=== PATIENT | male | born 1935 | race Caucasian/White ===

== ENCOUNTER 2016-12-25 08:25 | Inpatient (IN) | payer MEDICARE ==
[~2016-12-25] VITALS: Ht 160 cm; Wt 52.5 kg
[~2016-12-25 08:25] MED LIST: ALB2.5NEB INH; ALBU17IN INH; ASPI325T PO; ATEN25TA PO; ATOR1TAB21 PO; IPRA2IN INH; LEVA750T PO; LISI10TA4 PO; PRED10TA PO; TYLE325T5 PO; VITMTA PO; [UNRECOGNIZED DRUG - CODE] PO
[2016-12-25] MEDS ORDERED: ALBUTEROL SULFATE 2.5 MG/0.5 ML INH NEB SOLN NEB PRN (08:45)
[2016-12-25 08:59] LABS: VENOUS O2 SATURATION 58.4 % (60.0-80.0); VENOUS PARTIAL PRESSURE CO2 53.6 mmHg (38.0-50.0); VENOUS PARTIAL PRESSURE O2 28.1 mmHg (30.0-50.0); VENOUS STANDARD HCO3 27.8 MEQ/L; VENOUS TOTAL CO2 33.3 MEQ/L (24.0-28.0)
[2016-12-25] MEDS ORDERED: SODIUM CHLORIDE 0.9% 1000 ML IV ONE (09:00)
[2016-12-25] MEDS ORDERED: ONDANSETRON 4MG/2ML VIAL (J2405) IV ONE (09:00)
[2016-12-25 09:03] LABS: BASO % 0.2 % (0.0-1.0); EOS # 0.5 K/mm3 (0.0-0.50); EOS % 2.2 % (0.0-3.0); LARGE UNSTAINED CELL # 0.2 K/mm3 (0.0-0.4); LARGE UNSTAINED CELL % 0.7 % (0.0-4.0); LYMPH # 0.8 K/mm3 (1.5-4.5); LYMPH % 3.2 % (24.0-44.0); MEAN CORPUSCULAR HEMOGLOBIN 30.3 pg (27.0-33.0); MEAN CORPUSCULAR HGB CONC 33.2 g/dl (32.0-36.5); MEAN CORPUSCULAR VOLUME 91.1 fl (80.0-96.0); MONO % 4.5 % (0.0-5.0); NEUTROPHILS # 19.5 K/mm3 (1.8-7.7); NEUTROPHILS % 89.2 % (36.0-66.0); PLATELET COUNT, AUTOMATED 206 k/mm3 (150-450); RED CELL DISTRIBUTION WIDTH 13.6 % (11.5-14.5); WHITE BLOOD COUNT 21.8 K/mm3 (4.0-10.0)
[2016-12-25 09:27] LABS: ALBUMIN 3.5 GM/DL (3.2-5.2); ALBUMIN/GLOBULIN RATIO 1.25 (1.00-1.93); ALKALINE PHOSPHATASE 101 U/L (45-117); ALT/SGPT 19 U/L (12-78); ANION GAP 6 MEQ/L (8-16); AST/SGOT 20 U/L (15-37); BILIRUBIN,DIRECT 0.4 MG/DL (0.0-0.2); BILIRUBIN,TOTAL 1.1 MG/DL (0.2-1.0); BLOOD UREA NITROGEN 20 MG/DL (7-18); CALCIUM LEVEL 8.7 MG/DL (8.8-10.2); CARBON DIOXIDE LEVEL 32 MEQ/L (21-32); CHLORIDE LEVEL 102 MEQ/L (98-107); GLOMERULAR FILTRATION RATE > 60.0 (>35); GLUCOSE, FASTING 163 MG/DL (83-110); POTASSIUM SERUM 4.8 MEQ/L (3.5-5.1); SODIUM LEVEL 140 MEQ/L (136-145); TOTAL PROTEIN 6.3 GM/DL (6.4-8.2)
--- NOTE | 2016-12-25 09:46 | REP ---
ABDOMINAL SERIES: Supine and erect views of the abdomen demonstrate no free air or evidence of bowel obstruction. No dilated small bowel loops are seen. There are vascular calcifications and phleboliths in the pelvis. There are mild degenerative changes of the spine . An accompanying view of the chest demonstrates stable bilateral fibrotic changes. No superimposed acute infiltrate is seen. The heart is upper limits of normal in size. There is calcification and ectasia of the thoracic aorta. IMPRESSION: No acute findings. Signed by Mario Pierre MD 12/25/2016 04:50 P
--- NOTE | 2016-12-25 09:48 | REP ---
SOFT TISSUES NECK: AP and lateral views of the soft tissues of the neck are performed with three total views obtained. Focal nodular thickening is seen of the posterior subglottic soft tissues. Recommend CT of the neck with IV contrast to further evaluate. The airway is focally narrowed at that level. Epiglottis is normal. [place] tonsils are not enlarged, and the adenoids are normal in size. There are degenerative changes of the cervical spine. IMPRESSION: Focal nodular thickening subglottic soft tissues posteriorly with mild narrowing of the airway at that level. Recommend CT of the soft tissues of the neck with IV contrast to further evaluate. Signed by Mario Pierre MD 12/25/2016 04:50 P
[2016-12-25] MEDS ORDERED: ISOVUE-370 76% 100ML VIAL (Q9967) As Ordered ONE (10:33)
--- NOTE | 2016-12-25 12:04 | REP ---
CT NECK WITH CONTRAST: HISTORY: Abnormal neck. There is minimal thickening of the lateral and posterior ma of the inferior hypopharynx. There is minimal mass effect on the airway. There is no extension into the larynx. The naso- and oropharynx and subglottic trachea are normal in appearance. The salivary and thyroid glands are normal. Small lymph nodes less than 1 cm in size are present in the internal jugular chains, posterior triangles and submandibular areas. Atherosclerotic calcification is present at the carotid bifurcations. Degenerative change is present in the cervical spine. Bullae are present in the lung apices. Scarring is present in the right lung apex. The visualized sinuses are clear. IMPRESSION: There is minimal thickening of the posterior and lateral ma of the inferior hypopharynx suspicious for neoplasm. There is minimal mass effect on the airway. Signed by Nimesh Trevino MD 12/25/2016 12:07 P
[2016-12-25] MEDS ORDERED: PIPERACILLIN/TAZOBACTAM SOD 3.375 GM in D5W MINI-BAG PLUS 50 ML IV ONE (12:15)
--- NOTE | 2016-12-25 12:42 | REP ---
CT CHEST WITH IV CONTRAST: TECHNIQUE: Axial contrast-enhanced images from the thoracic inlet to the upper abdomen using 100 mL Isovue-370 intravenous contrast material with multiplanar reformations. COMPARISON: 08/13/2015 Diffuse emphysematous and interstitial fibrotic changes are seen. Suspicious oval spiculated right upper lobe mass is seen measuring 2.8 x 2.3 cm. There is adjacent pleural thickening. Inspissated secretions are seen in mildly dilated right lower lobe bronchioles. Subcentimeter nodular opacity in the left lower lobe is unchanged. There is no pleural or pericardial effusion. Multiple subcentimeter lymph nodes are seen in the mediastinal and hilar regions. 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 There is no dissection or rupture. Fluid is seen within the esophagus diffusely. There is diffuse thickening of the esophageal wall below the level of the vicente. The very proximal end of the esophagus also appears to demonstrate diffuse wall thickening. There are degenerative changes of the spine. A few mild compression deformities of midthoracic vertebral bodies appear stable. IMPRESSION: Suspicious right upper lobe mass 2.8 x 2.3 cm. Multiple subcentimeter lymph nodes in the mediastinal and hilar regions. Inspissated secretions in mildly dilated right lower lobe bronchioles. No change in aneurysmal dilatation of the thoracic aorta. Diffuse thickening of the distal portion of the esophageal wall below the level of the vicente. Esophagus is filled with fluid. The very proximal end of the esophagus may also be thickened. Findings may represent esophagitis, but underlying neoplasm cannot be excluded. Signed by Mario Pierre MD 12/25/2016 04:52 P
[2016-12-25] MEDS ORDERED: KCL 10MEQ IN D5/0.45NS 1000ML 1,000 ML IV SCH (13:30)
[2016-12-25] MEDS ORDERED: ONDANSETRON 4MG/2ML VIAL (J2405) IV PRN (13:30)
--- NOTE | 2016-12-25 13:42 | REP ---
CT ABDOMEN AND PELVIS WITH CONTRAST: TECHNIQUE: Axial contrast enhanced images from the lung bases to the pubic symphysis using 100 mL Isovue-370 intravenous contrast material with multiplanar reformations. The liver demonstrates a tiny cyst in the left lobe. Tiny calcified granulomas are seen in the spleen. Gallbladder is moderately distended, but I do not see evidence of gallbladder wall thickening or surrounding inflammatory change. Left adrenal adenoma is stable since CT of the chest 03/14/2014 measuring 2 cm in maximum diameter. Right adrenal is unremarkable. Pancreas appears unremarkable. Small subcentimeter cyst is seen in the lower pole of both kidneys. There is no hydronephrosis bilaterally. There is diffuse ectasia with moderate atherosclerotic calcifications of the abdominal aorta. There is no adenopathy. There is no free air or free fluid. No bowel wall thickening is seen. There is extensive sigmoid diverticulosis with diverticula also seen of the left colon. No acute diverticulitis is seen. No pelvic mass is seen. Urinary bladder is mildly distended and grossly unremarkable. There appears to be a right femoral hernia containing fat. There are mild degenerative changes of the spine. IMPRESSION: No acute abnormalities, as discussed above. No free air or free fluid. Small right femoral hernia containing fat. Sigmoid diverticulosis without acute diverticulitis. Signed by Mario Pierre MD 12/25/2016 04:52 P
[2016-12-25] MEDS ORDERED: LISI-542 PO (14:06)
[2016-12-25] MEDS ORDERED: INCR1INH INH (14:07)
[2016-12-25 14:56] LABS: AMYLASE 100 U/L (25-115)
--- NOTE | 2016-12-25 15:07 | HPEPDOC ---
Medical History and Physical Date of Admission Dec 25, 2016 at 13:19 History and Physical ATTENDING: Dr. Platt PCP: Mildred HOLCOMB CC: vomiting HPI: 81yoM with a past medical history significant for COPD, HHD who states he was treated for COPD exacerbation about 10 days ago. Finished antibiotics and steroid course about 5 days ago. States symptoms did improve on therapy but last night had persistent vomiting brown emesis, SOB with brown sputum, and onset of hoarseness. Called EMS today. Denies any fevers, chills, RAYA, CP, palpitations, abdominal pain, or changes in bowel or bladder habits. Upon presentation to the hospital the patient was found to have esophageal mass on imaging/RUL mass, thus the hospitalist team was consulted. PMHx: HHD- CANNY thoracic AA 08/05 4 cm h/o tobacco use h/o Pn HTN Pulmonary cachexia Emphysematous COPD-PANNY PSHX: Rt knee surgery SOCHX: Resides in: [facility] Marital Status: Kids: 6 Employment: retired Tobacco use: 64yr smoking hx, quit per pt 2 yr ago ETOH: denies Illicit Drugs: Denies Recent travel: denies Advanced directives: DNR- copy scanned in chart FAMHX: Mother: old age Father: old age Children: Alive, well Unexpected deaths due to medical reasons: None. ROS: As noted in HPI, otherwise 11pt ROS of systems reviewed and unremarkable. PE: GEN: 81yoM, appears stated age. thin cachectic appearing. Alert and oriented x 3. Pt with hoarseness noted. HEENT: Normocephalic, atraumatic. Pupils are equal, round, and reactive to light. Extraocular movements are intact. No nystagmus appreciated. Sclera are nonicteric. Conjunctiva without injection. Nose midline. Nasal turbinates without bogginess. EACs both patent BL. TMs both visualized and bales with good cone of light, no bulging or erythema. No facial asymmetry. Moist mucous membranes. Neck supple, trachea midline- no deviation noted. No lymphadenopathy or thyromegaly appreciated. CHEST: Regular rate and rhythm, +S1, +S2 LUNGS: Decreased BS Rt lung field with rales noted. Few scattered wheezes. No rhonchi. No stridor noted. ABD: Flat, soft, non-tender, non-distended. +Bowel sounds throughout. No rebound or guarding. No costovertebral angle tenderness. EXT: Pulses 2+ bilaterally dorsalis pedis and radial. No lower extremity edema appreciated. SKIN: [place], dry, warm. Capillary refill <2sec. No rashes. NEURO: Alert and oriented x 3. Cranial nerves III-XII are intact. No focal deficits appreciated. AXR No acute findings. XR neck Focal nodular thickening subglottic soft tissues posteriorly with mild narrowing of the airway at that level. Recommend CT of the soft tissues of the neck with IV contrast to further evaluate. CT neck There is minimal thickening of the posterior and lateral ma of the inferior hypopharynx suspicious for neoplasm. There is minimal mass effect on the airway CT: Abd/Pelvis No acute abnormalities, as discussed above. No free air or free fluid. Small right femoral hernia containing fat. Sigmoid diverticulosis without acute diverticulitis. CT chest Suspicious right upper lobe mass 2.8 x 2.3 cm. Multiple subcentimeter lymph nodes in the mediastinal and hilar regions. Inspissated secretions in mildly dilated right lower lobe bronchioles. No change in aneurysmal dilatation of the thoracic aorta. EKG: SR, 84bpm, poss LAE, Inc RBBB, LAFB. BLOOD CULTURES: x 2 pending. A&P: 81yoM with a past medical history significant for COPD, HHD who states he was treated for COPD exacerbation about 10 days ago. Finished antibiotics and steroid course about 5 days ago. States symptoms did improve on therapy but last night had persistent vomiting brown emesis, SOB with brown sputum, and onset of hoarseness. Called EMS today The patient will be admitted to PCU for at least [address] Platt' s service. 1. RUL Lung mass. PCU. NPO. Plan to clt with Dr Cox as pt follows with her as outpt with GLORIA. 2. Esophageal mass. Thickening of ma of hypopharynx suspicious for neoplasm with minimal mass effect on airway. No stridor, tracheal deviation, or respiratory distress on exam. NPO. ENT has been consulted to evaluate airway further and any further recommendations. IV Protonix. 3. COPD/Recent COPD exacerbation. PCU/TM. O2/Nebs. Sputum culture/BCx2. Pt noted with WBC 21, LA 2.3. LA will be repeated at 6 PM. Respiratory panel pending. Pt stopped abx yesterday and steroids 5 days ago. IV Zosyn initiated. IVF at 75cc/hr. 4. HTN. Atenolol/Lisinopril. 5. H/O Tobacco use. Pt states he quit 2 years ago. 6. HLD. Statin. 7. Vomiting. IV Zofran prn. DVT prophylaxis. The patient is a DNR, there is a copy scanned into system and Pt affirms. Vital Signs Vital Signs Date Time Temp Pulse Resp B/P Pulse Ox O2 Delivery O2 Flow Rate FiO2 12/25/16 12:46 82 96 12/25/16 12:42 121/93 12/25/16 10:13 Nasal Cannula 3 12/25/16 08:27 99.3 20 Laboratory Data Labs 24H Laboratory Tests 2 12/25/16 08:49: Aspartate Amino Transf (AST/SGOT) 20, Alanine Aminotransferase (ALT/SGPT) 19, Alkaline Phosphatase 101, Total Bilirubin 1.1H, Direct Bilirubin 0.4H, Albumin 3.5, Albumin/Globulin Ratio 1.25, Anion Gap 6L, B-Type Natriuretic Peptide 28.2 , White Blood Count 21.8H, Red Blood Count 4.86, Hemoglobin 14.7, Hematocrit 44.3, Mean Corpuscular Volume 91.1, Mean Corpuscular Hemoglobin 30.3, Mean Corpuscular Hemoglobin Concent 33.2, Red Cell Distribution Width 13.6, Platelet Count 206, Neutrophils (%) (Auto) 89.2H, Lymphocytes (%) (Auto) 3.2L, Monocytes (%) (Auto) 4.5, Eosinophils (%) (Auto) 2.2, Basophils (%) (Auto) 0.2, Neutrophils # (Auto) 19.5H, Lymphocytes # (Auto) 0.8L, Monocytes # (Auto) 1.0H, Eosinophils # (Auto) 0.5, Basophils # (Auto) 0.0, Blood Gas Bicarbonate Standard 27.8, Calcium Level 8.7L, Creatine Kinase MB 1.8, Creatine Kinase MB Relative Index 2.60, Glomerular Filtration Rate > 60.0, Lactic Acid Level 2.3*H , Large Unclassified Cells # 0.2, Large Unclassified Cells % 0.7, Thyroid Stimulating Hormone (TSH) 0.897, Total Creatine Kinase 69, Total Protein 6.3L, Troponin I < 0.02, Venous Blood Base Excess 5.0H, Venous Blood pH 7.389, Venous Blood Partial Pressure CO2 53.6H, Venous Blood Partial Pressure O2 28.1L, Venous Blood Total Carbon Dioxide 33.3H, Venous Blood HCO3 31.6H, Venous Blood Oxygen Saturation 58.4L CBC/BMP Laboratory Tests 12/25/16 08:49 Red Blood Count 4.86, Mean Corpuscular Volume 91.1, Mean Corpuscular Hemoglobin 30.3, Mean Corpuscular Hemoglobin Concent 33.2, Red Cell Distribution Width 13.6 , Neutrophils (%) (Auto) 89.2 H, Lymphocytes (%) (Auto) 3.2 L, Monocytes (%) ( Auto) 4.5, Eosinophils (%) (Auto) 2.2, Basophils (%) (Auto) 0.2, Neutrophils # ( Auto) 19.5 H, Lymphocytes # (Auto) 0.8 L, Monocytes # (Auto) 1.0 H, Eosinophils # (Auto) 0.5, Basophils # (Auto) 0.0 Microbiology Microbiology 12/25/16 Blood Culture, Received Pending 12/25/16 Blood Culture, Received Pending Home Medications Scheduled (Incruse Ellipta) 62.5 Mcg/Inh Inh 1 PUFF INH DAILY Aspirin (Aspirin) 325 Mg Tab 650 MG PO DAILY Atenolol (Atenolol) 25 Mg Tab 25 MG PO QPM Atorvastatin Calcium (Atorvastatin Calcium) 20 Mg Tab 20 MG PO QHS Lisinopril (Lisinopril) 5 Mg Tab 5 MG PO QHS Multivitamins *[facility] STOCKED* (Thera M Plus *[facility] STOCKED*) 1 Tab Tab 1 TAB PO DAILY Scheduled PRN Acetaminophen (Tylenol) 325 Mg Tab 650 MG PO Q4HP PRN PRN MILD PAIN OR FEVER Albuterol Sulfate (Albuterol Sulfate) 2.5 Mg/0.5 Ml Neb 2.5 MG INH QID PRN PRN SHORTNESS OF BREATH MIX WITH IPRATROPIUM BROMIDE Albuterol Sulfate (Ventolin Hfa) 200 Puff/8 Gm Aers 2 PUFF INH Q4H PRN PRN SHORTNESS OF BREATH Ipratropium [place] (Ipratropium [place]) 0.5 Mg/2.5 Ml Soln 0.5 MG INH QID PRN PRN SHORTNESS OF BREATH MIX WITH ALBUTEROL Allergies Coded Allergies: No Known Allergies (Unverified , 07/21/15) Vianey William Dec 25, 2016 15:07
[2016-12-25] MEDS ORDERED: LEVALBUTEROL 1.25 MG/0.5 ML CONCENTRATE NEB INH PRN (15:15)
[2016-12-25] MEDS ORDERED: IPRATROPIUM 0.02% SOLN 0.5MG/2.5 ML NEB INH PRN (15:15)
[2016-12-25] MEDS: IPRATROPIUM 0.02% SOLN 0.5MG/2.5 ML NEB INH SCH ×3 (16:00→23:49)
[2016-12-25] MEDS: LEVALBUTEROL 1.25 MG/0.5 ML CONCENTRATE NEB INH SCH ×3 (16:00→23:49)
[2016-12-25 17:15] VITALS: BP 122/56
[2016-12-25] MEDS: D5W/0.45% SODIUM CHLORIDE 1,000 ML IV SCH (17:30)
[2016-12-25] MEDS ORDERED: ACETAMINOPHEN 650 MG SUPP PR ONE (18:00)
[2016-12-25] MEDS: MULTIVITAMINS/MINERALS THERAP 1 TAB PO SCH (18:00)
[2016-12-25] MEDS: PIPERACILLIN/TAZOBACTAM SOD 3.375 GM in D5W MINI-BAG PLUS 50 ML IV SCH (18:05)
--- NOTE | 2016-12-25 18:57 | ECGEPIP ---
Stationary ECG Study [facility] - ED Test Date: 2016-12-25 Pat Name: ALFA TALBERT Department: Room: - Gender: M [place] Laborer: [id number] : 1935 Requested By: Laura Rob Order Number: [id number] Reading MD: Oscar Avilez Measurements Intervals [place] Rate: 84 P: 73 [place]: 159 QRS: -88 QRSD: 113 T: 52 QT: 380 QTc: 449 Interpretive Statements SINUS RHYTHM POSSIBLE LEFT ATRIAL ENLARGEMENT INCOMPLETE RIGHT BUNDLE BRANCH BLOCK LEFT ANTERIOR FASCICULAR BLOCK SIMILAR TO PRIORS Electronically Signed On 12-25-2016 18:56:55 EDT by Oscar Avilez
[2016-12-25 19:49] VITALS: O2SAT 95
[2016-12-25 20:00] VITALS: BP 113/54
[2016-12-25] MEDS: PANTOPRAZOLE 40MG INJ (PROTONIX) (C9113) IV SCH (20:12)
[2016-12-25] MEDS ORDERED: ATENOLOL 25 MG TAB PO SCH (21:00)
[2016-12-25] MEDS ORDERED: LISINOPRIL 5 MG TAB PO SCH (21:00)
[2016-12-25] MEDS ORDERED: ATORVASTATIN 20 MG TAB PO SCH (21:00)
[2016-12-26] VITALS: BP 120/59
[2016-12-26] MEDS: PIPERACILLIN/TAZOBACTAM SOD 3.375 GM in D5W MINI-BAG PLUS 50 ML IV SCH ×5 (00:15→23:32)
[2016-12-26 03:27] VITALS: O2SAT 96
[2016-12-26] MEDS: LEVALBUTEROL 1.25 MG/0.5 ML CONCENTRATE NEB INH SCH ×6 (03:27→23:34)
[2016-12-26] MEDS: IPRATROPIUM 0.02% SOLN 0.5MG/2.5 ML NEB INH SCH ×6 (03:27→23:34)
[2016-12-26 04:00] VITALS: BP 133/60
[2016-12-26 04:51] LABS: BASO % 0.2 % (0.0-1.0); EOS # 2.3 K/mm3 (0.0-0.50); EOS % 10.8 % (0.0-3.0); LARGE UNSTAINED CELL # 0.4 K/mm3 (0.0-0.4); LYMPH # 1.9 K/mm3 (1.5-4.5); LYMPH % 9.1 % (24.0-44.0); MEAN CORPUSCULAR HEMOGLOBIN 29.5 pg (27.0-33.0); MEAN CORPUSCULAR HGB CONC 32.1 g/dl (32.0-36.5); MEAN CORPUSCULAR VOLUME 91.7 fl (80.0-96.0); MONO # 1.4 K/mm3 (0.0-0.8); MONO % 6.8 % (0.0-5.0); NEUTROPHILS # 14.9 K/mm3 (1.8-7.7); NEUTROPHILS % 71.1 % (36.0-66.0); PLATELET COUNT, AUTOMATED 185 k/mm3 (150-450); RED CELL DISTRIBUTION WIDTH 13.8 % (11.5-14.5); WHITE BLOOD COUNT 20.9 K/mm3 (4.0-10.0)
[2016-12-26 04:56] LABS: INR 1.27
[2016-12-26 05:09] LABS: ALBUMIN 2.5 GM/DL (3.2-5.2); ALBUMIN/GLOBULIN RATIO 0.89 (1.00-1.93); ALKALINE PHOSPHATASE 77 U/L (45-117); ALT/SGPT 14 U/L (12-78); ANION GAP 3 MEQ/L (8-16); AST/SGOT 15 U/L (15-37); BILIRUBIN,DIRECT 0.3 MG/DL (0.0-0.2); BILIRUBIN,TOTAL 0.9 MG/DL (0.2-1.0); BLOOD UREA NITROGEN 22 MG/DL (7-18); CALCIUM LEVEL 7.4 MG/DL (8.8-10.2); CARBON DIOXIDE LEVEL 31 MEQ/L (21-32); CHLORIDE LEVEL 108 MEQ/L (98-107); CREATININE FOR GFR 0.85 MG/DL (0.70-1.30); GLOMERULAR FILTRATION RATE > 60.0 (>35); GLUCOSE, FASTING 131 MG/DL (83-110); POTASSIUM SERUM 3.5 MEQ/L (3.5-5.1); SODIUM LEVEL 142 MEQ/L (136-145); TOTAL PROTEIN 5.3 GM/DL (6.4-8.2)
[2016-12-26] MEDS: D5W/0.45% SODIUM CHLORIDE 1,000 ML IV SCH ×2 (07:44→20:47)
[2016-12-26 08:00] VITALS: BP 128/62
[2016-12-26] MEDS: MULTIVITAMINS/MINERALS THERAP 1 TAB PO SCH (08:30)
[2016-12-26] MEDS: PANTOPRAZOLE 40MG INJ (PROTONIX) (C9113) IV SCH ×2 (08:34→20:46)
--- NOTE | 2016-12-26 09:55 | IPNPDOC ---
Subjective Date Seen The patient was seen on 12/26/16. Subjective Chief Complaint/HPI The patient is a 81-year-old male admitted with a reason for visit of Esophageal Mass. Events since last encounter Pts family at bedside. Pt this morning states that his N/V is better than is was. He has not vomited since he came into the hospital. His breathing is labored, slightly worse than baseline. Hoarse voice, cough, N/V, increased SOB started just over 2 days ago suddenly. General: Denies: Fatigue Constitutional: Denies: Chills, Fever ENT: Reports: Dysphagia, Other Symptoms (hoarse voice), Sore Throat Pulmonary: Reports: Cough, Dyspnea Cardiovascular: Denies: Chest Pain, Palpitations Gastrointestinal: Denies: Diarrhea, Nausea, Vomiting Genitourinary: Denies: Dysuria Neurological: Reports: Weakness Psych: Reports: Mood Normal Objective Physical Examination General Exam: Positive: Alert, No Acute Distress ENT Exam: Positive: Mucous membr. moist/pink Neck Exam: Positive: Supple Chest Exam: Positive: Clear to auscultation, Normal air movement Heart Exam: Positive: Normal S1, Normal S2, Rate Normal Abdomen Exam: Positive: Normal bowel sounds, Soft, Negative: Tenderness Extremity Exam: Positive: Edema Psych Exam: Positive: Mental status NL, Mood NL Assessment /Plan Problems (1) Esophageal mass Status: Acute Discussed With: Nurse, Patient, Family with Pt Consent Problem Specific Plan: Consult Specialist, Monitor Clinically, Repeat Labs Problem Text: thickening of the ma of the hypopharynx, minimal effect on the airway, ENT consult placed. JFW: ENT consult pending (2) Mass of lung Status: Acute Discussed With: Nurse, Patient, Family with Pt Consent Problem Specific Plan: Consult Specialist, Monitor Clinically Problem Text: Will consult Dr Cox to see the pt, he follows with her as an outpt. JFW: per Dr Cox, plan CT guided bx (3) Vomiting Status: Acute Response to Treatment: Improving Problem Specific Plan: Consult Specialist, Monitor Clinically Problem Text: I suspect this is assoc with the thickening noted on CT of the hypopharynx. He is NPO right now, which has helped alleviate this. JFW: swallowing study today, ADAT (4) Hypertension Status: Chronic Response to Treatment: Stable Problem Text: Will hold lisinopril 5 mg for now. His pressures are stable at this point. 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 O2 3L. (6) Leukocytosis Status: Acute Problem Specific Plan: Monitor Clinically Problem Text: Etiology of this unclear. Resp panel neg, Blood culture x 1 Neg, x 1 pending, did recently finished course of prednisone. Currently on Zosyn IV. Tmax 100.8 JFW: suspect reactive from malignancy Plan/VTE VTE Prophylaxis Ordered?: No (SCD, TEDS, hold off on anticoagulation in anticipation of bx. ) Plan/Urinary Catheter Reason for insertion/continuin: Acute obstruct/retention VS, I&O, 24H, Fishbone Vital Signs/I&O Vital Signs Date Time Temp Pulse Resp B/P Pulse Ox O2 Delivery O2 Flow Rate FiO2 12/26/16 07:52 77 12/26/16 04:00 99.0 24 133/60 98 Nasal Cannula 3.0 12/25/16 19:49 95 I&O- Last 24 Hours up to 6 AM 12/26/16 06:00 Intake Total 2150 ml Output Total 820 ml Balance 1330 ml Laboratory Data 24H LABS Laboratory Tests 2 12/25/16 18:24: Lactic Acid Level 1.6 12/26/16 04:34: Activated Partial Thromboplast Time 31.6, Aspartate Amino Transf (AST/SGOT) 15, Alanine Aminotransferase (ALT/SGPT) 14, Alkaline Phosphatase 77, Total Bilirubin 0.9, Direct Bilirubin 0.3H, Albumin 2.5#L, Albumin/Globulin Ratio 0.89L, Anion Gap 3L, White Blood Count 20.9H, Red Blood Count 4.49, Hemoglobin 13.2L, Hematocrit 41.2L, Mean Corpuscular Volume 91.7, Mean Corpuscular Hemoglobin 29.5, Mean Corpuscular Hemoglobin Concent 32.1, Red Cell Distribution Width 13.8, Platelet Count 185, Neutrophils (%) (Auto) 71.1H, Lymphocytes (%) (Auto) 9.1L, Monocytes (%) (Auto) 6.8H, Eosinophils (%) (Auto) 10.8H, Basophils (%) (Auto) 0.2, Neutrophils # (Auto) 14.9H, Lymphocytes # (Auto ) 1.9, Monocytes # (Auto) 1.4H, Eosinophils # (Auto) 2.3H, Basophils # (Auto) 0.0, Calcium Level 7.4L, Glomerular Filtration Rate > 60.0, Large Unclassified Cells # 0.4, Large Unclassified Cells % 2.0, Prothromb Time International Ratio 1.27, Prothrombin Time 16.0H, Total Protein 5.3L CBC/BMP Laboratory Tests 12/26/16 04:34 Red Blood Count 4.49, Mean Corpuscular Volume 91.7, Mean Corpuscular Hemoglobin 29.5, Mean Corpuscular Hemoglobin Concent 32.1, Red Cell Distribution Width 13.8 , Neutrophils (%) (Auto) 71.1 H, Lymphocytes (%) (Auto) 9.1 L, Monocytes (%) ( Auto) 6.8 H, Eosinophils (%) (Auto) 10.8 H, Basophils (%) (Auto) 0.2, Neutrophils # (Auto) 14.9 H, Lymphocytes # (Auto) 1.9, Monocytes # (Auto) 1.4 H , Eosinophils # (Auto) 2.3 H, Basophils # (Auto) 0.0 Microbiology Microbiology 12/25/16 Blood Culture, Received Pending 12/25/16 Blood Culture - Preliminary, Resulted No growth after 24 hours . All specim... 12/25/16 MRSA Screen, Resulted Pending 12/25/16 Respiratory Virus Panel (PCR) ([facility]) - Final, Resulted 12/25/16 Gram Stain - Final, Resulted 12/25/16 Sputum Culture, Resulted Pending ERICKSON DORAN PA-C Dec 26, 2016 09:55 Fran Platt MD Dec 26, 2016 14:05
[2016-12-26 14:00] VITALS: BP 120/57
--- NOTE | 2016-12-26 14:41 | IPN ---
DATE OF SERVICE: 12/26/2016 Reason for visit in the hospital was abnormal chest CT. HISTORY OF PRESENT ILLNESS: Mr. Marino last saw me back in February 2016. He is an 81-year-old male with known emphysema, pulmonary cachexia, prior history of abnormal chest CT. It is not clear why he was lost to followup. He had a chest lesion in July of 2015 on the left upper lobe. It appears to have become slightly larger and therefore I was consulted. I reviewed the imaging with Dr. Hong Guzman, we both agree it is a difficult area to biopsy, however, we had agreed on attempting a CT-guided biopsy despite the high risk of pneumothorax. The reason for the patient's inpatient hospital stay currently is he had episode of vomiting. He was vomiting so hard he had loss of voice, difficulty swallowing. He was seen by ENT who performed an upper laryngoscopy, which showed no mass. There was postcricoid and arytenoid edema noted. It was postulated, and it may have been from excessive vomiting and retching. It was felt that a repeat exam would be helpful at some point in time. There is also recommendation of a barium swallow to help rule out an intraluminal esophageal mass. There is esophageal thickening on the CT scan. The patient had one night of vomiting on the night of the 12/24 and then went to the emergency room the morning of 12/25 and was admitted yesterday on 12/25. Since then, he feels better. His voice is still hoarse. Overall he feels better, his breathing is better. He denies any significant weight loss over the past year; however, his son states he has had progressive weight loss over the years. He does have a history of pulmonary cachexia, prior history of spontaneous pneumothorax requiring a right-sided chest tube. PAST MEDICAL HISTORY: Thoracic aortic aneurysm. Hypertension. Emphysema. Tobacco dependency. Pulmonary cachexia. History of abnormal chest CT. History of spontaneous pneumothorax on the right requiring chest tube placement. ALLERGIES: 1. SPIRIVA he had memory loss with. 2. He also claims he is allergic to SYMBICORT, not sure the exact adverse reaction. HOME MEDICATIONS: He states he is taking INCRUSE inhaled once daily at home. There was no home medication list documented on his history and physical. I believe he is taking lisinopril 10 mg p.o. b.i.d., a multivitamin one tablet by mouth daily, atorvastatin 20 mg p.o. q.h.s., atenolol 25 mg p.o. q.p.m., aspirin 325 mg p.o. daily, and albuterol both in the form Ventolin and in the form of DuoNeb p.r.n. q.4 h. MEDICATIONS WHILE IN HOSPITAL: Includes: - Protonix 40 mg IV b.i.d. - Zosyn 3.375 IV every 6 hours - Zofran 4 mg IV every 6 hours - Tylenol suppository - Xopenex nebs SMOKING STATUS: Ex-smoker, quit 2 years ago. Lives in [place], is . His son and his [id number] are in his room during my in interview. He is a DO NOT RESUSCITATE and has a copy in his chart. FAMILY HISTORY: Both parents of "old age." No other significant abnormalities. REVIEW OF SYSTEMS: CONSTITUTIONAL: No fever, chills. There has been progressive weight loss, as mentioned above. No weight gain. No night sweats. HEENT: Recent difficulty swallowing which is new in onset after the episodes of vomiting. No change in vision. No epistaxis. CARDIAC: Denies chest pain. No palpitations. No lower extremity edema. No symptoms of claudication. No orthopnea or PND. PULMONARY: No pleurisy. No increase in his usual level of cough. No increase in shortness of breath today. No history of TB or tuberculosis exposures. GASTROINTESTINAL (GI): Nausea and vomiting have decreased. No further episodes of hematemesis. No abdominal pain. No blood in stool. No change in caliber of stool. No diarrhea, constipation. GENITOURINARY (): No burning or pain with urination. He denies increased frequency. ENDOCRINE: No hot or cold intolerance. No polyuria, polydipsia. NEURO: No unilateral weakness. No tremor. No history of seizure activity. No history of head trauma. PSYCH: No depression, mood swings or anxiety. ALLERGY/IMMUNOLOGY: No history of environmental allergies. No history of recurrent infection. SLEEP: No excessive daytime somnolence. No snoring or witnessed apneas. INTEGUMENTARY: No recent rashes, jaundice or bruising. PHYSICAL EXAMINATION: Temperature is 98.7. Pulses is 84. Respiratory rate is 17. Blood pressure is 182/62 with a mean arterial pressure of 84. Oxygen saturation is 94% on 3 liters. Awake, alert and oriented. Affect and mood are appropriate. Nutrition and hygiene are good. Oronasal mucosa are dry. Tongue is midline. He is edentulous. Neck no stridor tracheal deviation or mass. Jugular veins are nondistended. Carotid upstroke is brisk without bruit. Thyroid is normal in size and contour without nodularity, moves normally with deglutition. Lymph no change. Cardiac regular S1-S2 without audible murmur, rub or gallop. PMI is difficult to palpate. Pulmonary: Breath sounds are decreased bilaterally, expiratory phase prolonged. No rales, rhonchi or wheezes. No dullness to percussion. Chest elevates symmetric. No accessory muscle use. Abdomen is scaphoid, soft, nontender with normal active bowel sounds. No palpable mass or discernible hepatosplenomegaly. There are no bruits over the large vessel of the abdomen. Extremities no significant peripheral edema. Peripheral pulses are palpable at radial locations and symmetric. Nails without clubbing or cyanosis. Skin is pale, cool and dry. No rashes, jaundice or bruising. Musculoskeletal: Muscle tone is wasted. Gait and station were not tested due to his acute illness. No evidence unilateral weakness, asterixis or tremor. DIAGNOSTIC STUDIES: Laboratory evaluation shows a white count of 20.9, hemoglobin of 13.2, hematocrit of 41.2, platelet count of 185. Chemistries show sodium 142, potassium 3.5, chloride 108, bicarb of 31, BUN of 22, creatinine of 0.85, fasting glucose of 131, lactate of 1.6, albumin of 2.5. Venous blood gas shows a pH of 7.38, pCO2 of 53.6 on December 25, 2016. Chest CT was reviewed from 12/25/2016. There is a right femoral hernia seen on abdominal CT. Chest CT showed a right upper lobe mass which has progressed from 2015, has increased by a centimeter. He has known emphysema throughout all lung [place] with bleb formation, especially around the periphery. He has a large thoracic aortic aneurysm. He has evidence of bronchiectasis especially in the right lower lobe. He has airways filled with mucus versus aspiration. IMPRESSION: 1. Abnormal chest CT with right upper lobe mass, possibly abscess versus scarring, but significantly worrisome for malignancy. Recommend biopsy at this point in time. After discussing with radiology, it is in a difficult location for biopsy; however, a CT guided biopsy will be attempted first. He is at high risk for pneumothorax and this was discussed with the patient and he expresses understanding. He wishes to proceed with biopsy. He was given the options of doing nothing, CT-guided biopsy and bronchoscopy. He has opted for CT guided biopsy as his first step, given the risks and benefits of the procedure. 2. Weight loss. My be due to chronic infection, emphysema or underlying malignancy. Recommend continued protein supplementation. 3. Emphysema. Will continue on inhaled therapy with nebulized therapy. The patient had reactions to long acting anticholinergics. At this point in time, he has no evidence of bronchospasm. I do not believe he warrants any steroid therapy at this point in time. 4. History of tobacco dependency.
[2016-12-26] MEDS ORDERED: LIDOCAINE 1% MDV 20ML VIAL As Ordered ONE (15:40)
[2016-12-26] MEDS ORDERED: SALIVA SUBSTITUTE(MOUTHKOTE) BTL MT PRN (18:30)
--- NOTE | 2016-12-26 18:55 | REP ---
Chest x-ray: PA view in inspiration. History: Immediately status post CT guided needle biopsy right upper lobe lung mass. Findings: There is a tiny sliver of apical pneumothorax on the right just peripheral to the biopsied mass lesion in the right apex. The lung findings are otherwise unchanged. The aorta is calcific and tortuous. Heart is mildly enlarged. Impression: Tiny right apical pneumothorax post biopsy. Recommend followup chest x-ray in 2-3 hours. Signed by David Guzman MD 12/27/2016 07:51 A
--- NOTE | 2016-12-26 20:46 | REP ---
CT guided needle biopsy right upper lobe lung mass. History: Mass in the right upper lobe of the lung on CT study of the chest from December 25, 2016. Procedure: The patient and his son were interviewed and informed consent was obtained. The patient was placed in the right side down prone oblique position on the CT table. Initial CT imaging was performed confirming the presence of a mass and the skin is marked at the site chosen for skin entry for the needle biopsy. After patient safety time-out was articulated and agreed to, the posterior skin just to the right of midline was prepped and draped in the usual fashion. 1% lidocaine was utilized for local anesthetic, 6 ml [address] scanning imaging, a 10 cm 19/20 gauge coaxial cutting Temno needle biopsy was positioned just proximal to the right upper lobe mass. Total of six core specimens were retrieved and submitted in formalin for histologic analysis. Specimen of saline aspirate and needle aspirate was submitted for culture as requested. Postprocedure imaging shows no untoward abnormality. The patient tolerated the procedure well. Impression: CT guided needle biopsy procedure right upper lobe lung mass. Signed by David Guzman MD 12/27/2016 07:52 A
[2016-12-26 22:00] VITALS: BP 144/67
[2016-12-27] MEDS: LEVALBUTEROL 1.25 MG/0.5 ML CONCENTRATE NEB INH SCH ×6 (03:50→23:05)
[2016-12-27] MEDS: IPRATROPIUM 0.02% SOLN 0.5MG/2.5 ML NEB INH SCH ×6 (03:50→23:05)
[2016-12-27] MEDS: PIPERACILLIN/TAZOBACTAM SOD 3.375 GM in D5W MINI-BAG PLUS 50 ML IV SCH ×3 (05:29→17:50)
[2016-12-27 06:00] VITALS: BP 132/61
--- NOTE | 2016-12-27 06:39 | REP ---
CHEST, PA AND LATERAL: 12/26/2016. Clinical history: Status post transthoracic CT guided needle biopsy. Findings: The right upper lobe with small apical pneumothorax after that right side post biopsy 3 hours ago. Just lateral to the peripheral margin of the mass, the air gap was 11.5 cm. At that same level, the air gap is now 7.7 mm smaller. The right upper lobe mass is unchanged. The underlying COPD, fibrosis, lateral pleural thickening, tortuous calcified ectatic aorta all unchanged. Some basilar fibrotic changes are seen. Heart prominent for this degree of hyperinflation and COPD but without pulmonary edema. Impression: 1. 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 No tension component. No other change. Signed by Con Le MD 12/27/2016 08:15 P
[2016-12-27] MEDS: PANTOPRAZOLE 40MG INJ (PROTONIX) (C9113) IV SCH ×2 (08:18→21:08)
[2016-12-27] MEDS: D5W/0.45% SODIUM CHLORIDE 1,000 ML IV SCH (12:39)
[2016-12-27 14:00] VITALS: BP 142/65
--- NOTE | 2016-12-27 16:46 | IPNPDOC ---
Subjective Date Seen The patient was seen on 12/27/16. Subjective Chief Complaint/HPI The patient is a 81-year-old male admitted with a reason for visit of Esophageal Mass. Events since last encounter Patient is status post bronchoscopy with biopsy. He reports that he continues to have difficulty swallowing. He has not been eating anything since being evaluated by speech therapy, who expressed significant concern that he is aspirating. He is awaiting a cookie swallow study to be done on Thursday. He reports no difficulties with breathing, no chest pain, chest pressure, fevers, sweats, constipation, or diarrhea. Constitutional: Denies: Chills, Fever, Malaise, Night Sweats, Weakness Pulmonary: Reports: Cough, Denies: Dyspnea Cardiovascular: Denies: Chest Pain, Orthopnea, Palpitations Gastrointestinal: Denies: Abdominal Pain, Constipation, Diarrhea, Nausea, Vomiting Genitourinary: Denies: Dysuria Other systems 10 point review systems otherwise negative Objective Physical Examination General Exam: Positive: Alert, No Acute Distress, Other (cachectic) ENT Exam: Positive: Mucous membr. moist/pink Neck Exam: Positive: Other (no Virchov node noted in supraclavicular notch), Supple Chest Exam: Positive: Clear to auscultation, Normal air movement Heart Exam: Positive: Normal S1, Normal S2, Rate Normal Abdomen Exam: Positive: Normal bowel sounds, Soft, Negative: Tenderness Extremity Exam: Positive: Edema Psych Exam: Positive: Mental status NL, Mood NL Assessment /Plan Problems (1) Esophageal mass Status: Acute Discussed With: Nurse, Patient, Family with Pt Consent Problem Text: Thickening of the ma of the hypopharynx and esophagus on CT. ENT was consulted. Patient is awaiting cookie swallow study, and it was recommended that he be nothing by mouth until then. - Swallow study Thursday -Nothing by mouth due to aspiration risk (2) Mass of lung Status: Acute Discussed With: Nurse, Patient, Family with Pt Consent Problem Specific Plan: Consult Specialist, Monitor Clinically Problem Text: Biopsy was done by Dr. Cox 12/26/16 and pathology results are pending. Chest x-ray showed very small pneumothorax, which has been stable. Patient is not having any shortness of breath or other symptoms. (3) Vomiting Status: Resolved Problem Specific Plan: Monitor Clinically Problem Text: Nausea and vomiting have resolved. Patient is currently nothing by mouth. ENT consulted for laryngeal thickening. Swallow study pending. (4) Hypertension Status: Chronic Response to Treatment: Stable Problem Text: Blood pressures are stable -Continue holding lisinopril (5) COPD (chronic obstructive pulmonary disease) with emphysema Status: Chronic Response to Treatment: Stable Discussed With: Patient, Family with Pt Consent Problem Specific Plan: Monitor Clinically Problem Text: Nebs ordered, resp status stable. O2 3L. (6) Leukocytosis Status: Acute Problem Specific Plan: Monitor Clinically Problem Text: Etiology of this unclear. Resp panel neg, Blood culture x 1 Neg, x 1 pending, did recently finished course of prednisone. Currently on Zosyn IV. Tmax 100.8. Likely related to neoplastic syndrome. Plan/VTE VTE Prophylaxis Ordered?: Yes (restart anticoagulation; greater than 24 hours from biopsy; likely malignancy places patient at high risk for DVT) Plan/Urinary Catheter Reason for insertion/continuin: Acute obstruct/retention VS, I&O, 24H, Fishbone Vital Signs/I&O Vital Signs Date Time Temp Pulse Resp B/P Pulse Ox O2 Delivery O2 Flow Rate FiO2 12/27/16 16:19 93 Room Air 12/27/16 14:00 99.0 86 20 142/65 3.0 12/25/16 19:49 95 I&O- Last 24 Hours up to 6 AM 12/27/16 06:00 Intake Total 485 ml Output Total 560 ml Balance -75 ml Laboratory Data Microbiology Microbiology 12/25/16 Blood Culture - Preliminary, Resulted No Growth after 48 hours. All Specime... 12/25/16 Blood Culture - Preliminary, Resulted 12/26/16 Gram Stain - Final, Resulted 12/26/16 Surgical Biopsy Culture, Resulted Pending 12/25/16 MRSA Screen - Final, Complete 12/25/16 Respiratory Virus Panel (PCR) ([facility]) - Final, Complete 12/25/16 Gram Stain - Final, Resulted 12/25/16 Sputum Culture, Resulted Pending REBECA HARDWICK MD Dec 27, 2016 16:46
[2016-12-27] MEDS: HEPARIN SOD (PORCINE) 5000 UNITS/ML VIAL SQ SCH (21:09)
[2016-12-27 22:00] VITALS: BP 120/58
[2016-12-28] MEDS: PIPERACILLIN/TAZOBACTAM SOD 3.375 GM in D5W MINI-BAG PLUS 50 ML IV SCH ×5 (00:05→23:21)
[2016-12-28] MEDS: LEVALBUTEROL 1.25 MG/0.5 ML CONCENTRATE NEB INH SCH ×5 (03:08→20:21)
[2016-12-28] MEDS: IPRATROPIUM 0.02% SOLN 0.5MG/2.5 ML NEB INH SCH ×5 (03:08→20:21)
[2016-12-28] MEDS: D5W/0.45% SODIUM CHLORIDE 1,000 ML IV SCH (03:50)
[2016-12-28] MEDS: HEPARIN SOD (PORCINE) 5000 UNITS/ML VIAL SQ SCH ×3 (05:28→21:03)
[2016-12-28 06:00] VITALS: BP 123/58
[2016-12-28] MEDS ORDERED: FLUCONAZOLE 400 MG in APPROPRIATE DILUENT 1 EA IV SCH (06:00)
--- NOTE | 2016-12-28 06:00 | IPNPDOC ---
Subjective Date Seen The patient was seen on 12/28/16. Subjective Chief Complaint/HPI The patient is a 81-year-old male admitted with a reason for visit of Esophageal Mass. Events since last encounter Patient feels like he is breathing better today. He continues to have some difficulty swallowing, and states that it is slightly painful to swallow. He does not want to have an NG tube and tube feeds while awaiting swallow study. He denies any fevers, chills, sweats. Constitutional: Denies: Chills, Fever, Malaise, Night Sweats Skin: Denies: Rash Pulmonary: Reports: Cough, Denies: Dyspnea, Pleuritic Chest Pain Cardiovascular: Denies: Chest Pain, Orthopnea, Palpitations Gastrointestinal: Denies: Abdominal Pain, Constipation, Diarrhea, Nausea, Vomiting Genitourinary: Denies: Dysuria Other systems 10 point review systems otherwise negative Objective Physical Examination General Exam: Positive: Alert, No Acute Distress, Other (cachectic) ENT Exam: Positive: Mucous membr. moist/pink Neck Exam: Positive: Other (no Virchov node noted in supraclavicular notch), Supple Chest Exam: Positive: Clear to auscultation, Normal air movement Heart Exam: Positive: Normal S1, Normal S2, Rate Normal Abdomen Exam: Positive: Normal bowel sounds, Soft, Negative: Tenderness Extremity Exam: Positive: Edema Psych Exam: Positive: Mental status NL, Mood NL Assessment /Plan Problems (1) Esophageal mass Status: Acute Discussed With: Nurse, Patient, Family with Pt Consent Problem Text: Thickening of the ma of the hypopharynx and esophagus on CT. ENT was consulted. Patient is awaiting cookie swallow study, and it was recommended that he be nothing by mouth until then. Patient does not want to start tube feeds, although he is rather cachectic. CT showed thickening of the larynx and esophagus. Sputum culture was positive for yeast. Started patient empirically on treatment for candidal esophagitis, as it could have this appearance on imaging and patient is having odynophasia. - Swallow study Thursday - Nothing by mouth due to aspiration risk - Nystatin swish and swallow for an attempted empiric treatment of odynophagia/ Diflucan - Follow up ENT recommendations (2) Mass of lung Status: Acute Discussed With: Nurse, Patient, Family with Pt Consent Problem Specific Plan: Consult Specialist, Monitor Clinically Problem Text: Biopsy was done by Dr. Cox 12/26/16 and pathology results are pending. Chest x-ray showed very small pneumothorax, which has been stable. Patient is not having any shortness of breath or other symptoms. -Pathology results pending (3) Vomiting Status: Resolved Problem Specific Plan: Monitor Clinically Problem Text: Nausea and vomiting have resolved. Patient is currently nothing by mouth. ENT consulted for laryngeal thickening. Swallow study pending. 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 O2 3L. (6) Leukocytosis Status: Acute Problem Specific Plan: Monitor Clinically Problem Text: Etiology of this unclear. Resp panel neg, Blood culture x 1 Neg, x 1 pending, did recently finished course of prednisone. Currently on Zosyn IV. Tmax 100.8. Likely related to neoplastic syndrome. Plan/VTE VTE Prophylaxis Ordered?: Yes (restart anticoagulation; greater than 24 hours from biopsy; likely malignancy places patient at high risk for DVT) Plan/Urinary Catheter Reason for insertion/continuin: Acute obstruct/retention VS, I&O, 24H, Fishbone Vital Signs/I&O Vital Signs Date Time Temp Pulse Resp B/P Pulse Ox O2 Delivery O2 Flow Rate FiO2 12/27/16 22:09 Room Air 12/27/16 22:00 100.3 100 21 120/58 90 12/27/16 14:00 3.0 12/25/16 19:49 95 I&O- Last 24 Hours up to 6 AM 12/28/16 05:59 Intake Total 1870 ml Output Total 425 ml Balance 1445 ml Laboratory Data Microbiology Microbiology 12/25/16 Blood Culture - Preliminary, Resulted No Growth after 48 hours. All Specime... 12/25/16 Blood Culture - Preliminary, Resulted 12/26/16 Gram Stain - Final, Resulted 12/26/16 Surgical Biopsy Culture, Resulted Pending 12/25/16 MRSA Screen - Final, Complete 12/25/16 Respiratory Virus Panel (PCR) ([facility]) - Final, Complete 12/25/16 Gram Stain - Final, Complete 12/25/16 Sputum Culture - Final, Complete Klebsiella Pneumoniae Yeast Like Organism REBECA HARDWICK MD Dec 28, 2016 06:00
[2016-12-28 06:21] LABS: BASO % 0.2 % (0.0-1.0); EOS # 0.9 K/mm3 (0.0-0.50); LARGE UNSTAINED CELL # 0.2 K/mm3 (0.0-0.4); LYMPH % 15.3 % (24.0-44.0); MEAN CORPUSCULAR HEMOGLOBIN 29.6 pg (27.0-33.0); MEAN CORPUSCULAR HGB CONC 31.9 g/dl (32.0-36.5); MEAN CORPUSCULAR VOLUME 92.8 fl (80.0-96.0); MONO # 0.8 K/mm3 (0.0-0.8); MONO % 6.8 % (0.0-5.0); NEUTROPHILS # 7.8 K/mm3 (1.8-7.7); NEUTROPHILS % 67.8 % (36.0-66.0); PLATELET COUNT, AUTOMATED 170 k/mm3 (150-450); RED CELL DISTRIBUTION WIDTH 13.5 % (11.5-14.5); WHITE BLOOD COUNT 11.4 K/mm3 (4.0-10.0)
[2016-12-28 06:40] LABS: ANION GAP 7 MEQ/L (8-16); BLOOD UREA NITROGEN 16 MG/DL (7-18); CALCIUM LEVEL 7.6 MG/DL (8.8-10.2); CARBON DIOXIDE LEVEL 30 MEQ/L (21-32); CHLORIDE LEVEL 107 MEQ/L (98-107); CREATININE FOR GFR 0.63 MG/DL (0.70-1.30); GLOMERULAR FILTRATION RATE > 60.0 (>35); GLUCOSE, FASTING 106 MG/DL (83-110); POTASSIUM SERUM 3.3 MEQ/L (3.5-5.1); SODIUM LEVEL 144 MEQ/L (136-145)
[2016-12-28] MEDS: PANTOPRAZOLE 40MG INJ (PROTONIX) (C9113) IV SCH ×2 (08:19→21:03)
[2016-12-28] MEDS: FLUCONAZOLE 400 MG in APPROPRIATE DILUENT 1 EA IV SCH (08:20)
[2016-12-28] MEDS: KCL 20MEQ IN D5/0.45NS 1000ML 1,000 ML IV SCH (12:58)
[2016-12-28] MEDS: NYSTATIN 500,000 U/5 ML SUSP UDC SS SCH ×2 (13:15→21:03)
[2016-12-28 14:00] VITALS: BP 140/60
[2016-12-28 22:00] VITALS: BP 149/68
[2016-12-29] MEDS: LEVALBUTEROL 1.25 MG/0.5 ML CONCENTRATE NEB INH SCH ×6 (00:13→20:32)
[2016-12-29] MEDS: IPRATROPIUM 0.02% SOLN 0.5MG/2.5 ML NEB INH SCH ×6 (00:13→20:32)
[2016-12-29] MEDS: HEPARIN SOD (PORCINE) 5000 UNITS/ML VIAL SQ SCH ×3 (05:44→21:44)
[2016-12-29] MEDS: PIPERACILLIN/TAZOBACTAM SOD 3.375 GM in D5W MINI-BAG PLUS 50 ML IV SCH ×3 (05:44→18:06)
[2016-12-29] MEDS: KCL 20MEQ IN D5/0.45NS 1000ML 1,000 ML IV SCH (05:49)
[2016-12-29 06:00] VITALS: BP 151/68
--- NOTE | 2016-12-29 08:52 | IPNPDOC ---
Subjective Date Seen The patient was seen on 12/29/16. Subjective Chief Complaint/HPI The patient is a 81-year-old male admitted with a reason for visit of Esophageal Mass. Events since last encounter Plans for cookie swallow today. denies c/o. Constitutional: Reports: Weakness (general), Denies: Chills, Fever, Night Sweats ENT: Denies: Dysphagia, Ear Pain, Head Aches Pulmonary: Reports: Dyspnea (chronic, oxygen dependent) Cardiovascular: Denies: Chest Pain, Lt Headedness, Orthopnea, Palpitations, Paroxysmal Noc. Dyspnea Gastrointestinal: Denies: Abdominal Pain, Constipation, Diarrhea, Nausea, Vomiting Genitourinary: Denies: Dysuria, Frequency, Incontinence, Retention Psych: Reports: Mood Normal, Denies: Depression, Memory Issues Objective Physical Examination General Exam: Positive: Alert, No Acute Distress ENT Exam: Positive: Mucous membr. moist/pink Neck Exam: Positive: Other (no Virchov node noted in supraclavicular notch), Supple Chest Exam: Positive: Clear to auscultation, Normal air movement Heart Exam: Positive: Normal S1, Normal S2, Rate Normal Abdomen Exam: Positive: Normal bowel sounds, Soft, Negative: Tenderness Extremity Exam: Negative: Edema Skin Exam: Positive: Nl turgor and temperature Psych Exam: Positive: Mental status NL, Mood NL Assessment /Plan Problems (1) Esophageal mass Status: Acute Discussed With: Nurse, Patient, Family with Pt Consent Problem Text: Thickening of the ma of the hypopharynx and esophagus on CT. ENT was consulted. Patient is awaiting cookie swallow study, and it was recommended that he be nothing by mouth until then. Patient does not want to start tube feeds, although he is rather cachectic. CT showed thickening of the larynx and esophagus. Sputum culture was positive for yeast. Started patient empirically on treatment for candidal esophagitis, as it could have this appearance on imaging and patient is having odynophasia. - Swallow study Thursday - Nothing by mouth due to aspiration risk - Nystatin swish and swallow for an attempted empiric treatment of odynophagia/ Diflucan - Follow up ENT recommendations (2) Mass of lung Status: Acute Discussed With: Nurse, Patient, Family with Pt Consent Problem Specific Plan: Consult Specialist, Monitor Clinically Problem Text: Biopsy was done by Dr. Cox 12/26/16 and pathology results are pending. Chest x-ray showed very small pneumothorax, which has been stable. Patient is not having any shortness of breath or other symptoms. -Pathology results pending (3) Vomiting Status: Resolved Problem Specific Plan: Monitor Clinically Problem Text: Nausea and vomiting have resolved. Patient is currently nothing by mouth. ENT consulted for laryngeal thickening. Swallow study pending. 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 O2 3L. (6) Leukocytosis Status: Acute Problem Specific Plan: Monitor Clinically Problem Text: Etiology of this unclear. Resp panel neg, Blood culture x 1 Neg, x 1 pending, did recently finished course of prednisone. Currently on Zosyn IV. Tmax 100.8. Likely related to neoplastic syndrome. Plan/VTE VTE Prophylaxis Ordered?: Yes (restart anticoagulation; greater than 24 hours from biopsy; likely malignancy places patient at high risk for DVT) Plan/Urinary Catheter Reason for insertion/continuin: Acute obstruct/retention Plan Attending note: I saw and evaluated the patient, and agree with the plan of care as discussed and document a by Radha Tripp. Rebeca Campbell MD VS, I&O, 24H, Fishbone Vital Signs/I&O Vital Signs Date Time Temp Pulse Resp B/P Pulse Ox O2 Delivery O2 Flow Rate FiO2 12/29/16 06:00 98.8 75 19 151/68 95 Nasal Cannula 2.0 12/25/16 19:49 95 I&O- Last 24 Hours up to 6 AM 12/29/16 06:00 Intake Total 1360 ml Output Total 650 ml Balance 710 ml Laboratory Data Microbiology Microbiology 12/25/16 Blood Culture - Preliminary, Resulted No Growth after 72 hours. All specime... 12/25/16 Blood Culture - Final, Complete Staphylococcus Epidermidis Corynebacterium Sp. Not Jk 12/26/16 Gram Stain - Final, Complete 12/26/16 Surgical Biopsy Culture - Final, Complete 12/25/16 MRSA Screen - Final, Complete 12/25/16 Respiratory Virus Panel (PCR) ([facility]) - Final, Complete 12/25/16 Gram Stain - Final, Complete 12/25/16 Sputum Culture - Final, Complete Klebsiella Pneumoniae Yeast Like Organism Nimisha Tripp Dec 29, 2016 08:52 REBECA CAMPBELL MD Dec 31, 2016 19:30
[2016-12-29] MEDS: PANTOPRAZOLE 40MG INJ (PROTONIX) (C9113) IV SCH ×2 (09:25→21:44)
[2016-12-29] MEDS: NYSTATIN 500,000 U/5 ML SUSP UDC SS SCH ×2 (09:25→21:44)
[2016-12-29] MEDS: FLUCONAZOLE 400 MG in APPROPRIATE DILUENT 1 EA IV SCH (09:25)
[2016-12-29] MEDS ORDERED: VARIBAR PUDDING 40% w/v 230ML TUBE As Ordered ONE (11:12)
[2016-12-29] MEDS ORDERED: VARIBAR NECTAR 40% w/v 240ML SUSP BTL As Ordered ONE (11:13)
[2016-12-29] MEDS ORDERED: E-Z PAQUE 60% w/v SUSP 355ML BOTTLE As Ordered ONE (11:13)
[2016-12-29 14:00] VITALS: BP 140/60
--- NOTE | 2016-12-29 16:35 | REP ---
COOKIE SWALLOW: The procedure was performed under the direct supervision of Dr. Pierre. The procedure was performed with Norah Farias from speech pathology present. 5 mL aliquots of nectar and pudding consistency barium was administered. With nectar consistency barium, there is aspiration. A detailed report of this examination will be provided by speech pathology. 1 minute and 18 seconds of fluoroscopy time was utilized for this procedure. Reviewed by ROXANNA Valdovinos 12/29/2016 04:44 PEdited and Signed by Mario Pierre MD 12/30/2016 04:26 P
[2016-12-29 22:00] VITALS: BP 142/77
[2016-12-30] MEDS: PIPERACILLIN/TAZOBACTAM SOD 3.375 GM in D5W MINI-BAG PLUS 50 ML IV SCH ×4 (00:30→17:56)
[2016-12-30] MEDS: KCL 20MEQ IN D5/0.45NS 1000ML 1,000 ML IV SCH ×2 (00:30→13:27)
[2016-12-30] MEDS: LEVALBUTEROL 1.25 MG/0.5 ML CONCENTRATE NEB INH SCH ×7 (00:31→23:49)
[2016-12-30] MEDS: IPRATROPIUM 0.02% SOLN 0.5MG/2.5 ML NEB INH SCH ×7 (00:31→23:49)
[2016-12-30] MEDS: HEPARIN SOD (PORCINE) 5000 UNITS/ML VIAL SQ SCH ×3 (05:10→22:49)
[2016-12-30 06:00] VITALS: BP 120/60
[2016-12-30 06:07] LABS: BASO % 0.3 % (0.0-1.0); EOS # 0.4 K/mm3 (0.0-0.50); EOS % 5.2 % (0.0-3.0); LARGE UNSTAINED CELL # 0.2 K/mm3 (0.0-0.4); LARGE UNSTAINED CELL % 1.8 % (0.0-4.0); LYMPH # 1.6 K/mm3 (1.5-4.5); LYMPH % 16.9 % (24.0-44.0); MEAN CORPUSCULAR HEMOGLOBIN 29.6 pg (27.0-33.0); MEAN CORPUSCULAR VOLUME 89.5 fl (80.0-96.0); MONO # 0.6 K/mm3 (0.0-0.8); MONO % 6.3 % (0.0-5.0); NEUTROPHILS % 69.3 % (36.0-66.0); PLATELET COUNT, AUTOMATED 180 k/mm3 (150-450); RED CELL DISTRIBUTION WIDTH 13.3 % (11.5-14.5); WHITE BLOOD COUNT 8.7 K/mm3 (4.0-10.0)
[2016-12-30 06:27] LABS: ALBUMIN 2.2 GM/DL (3.2-5.2); ALBUMIN/GLOBULIN RATIO 0.73 (1.00-1.93); ALKALINE PHOSPHATASE 57 U/L (45-117); ALT/SGPT 13 U/L (12-78); ANION GAP 9 MEQ/L (8-16); AST/SGOT 12 U/L (15-37); BILIRUBIN,TOTAL 0.7 MG/DL (0.2-1.0); BLOOD UREA NITROGEN 9 MG/DL (7-18); CALCIUM LEVEL 7.9 MG/DL (8.8-10.2); CARBON DIOXIDE LEVEL 26 MEQ/L (21-32); CHLORIDE LEVEL 108 MEQ/L (98-107); CREATININE FOR GFR 0.64 MG/DL (0.70-1.30); GLOMERULAR FILTRATION RATE > 60.0 (>35); GLUCOSE, FASTING 103 MG/DL (83-110); POTASSIUM SERUM 3.3 MEQ/L (3.5-5.1); SODIUM LEVEL 143 MEQ/L (136-145); TOTAL PROTEIN 5.2 GM/DL (6.4-8.2)
--- NOTE | 2016-12-30 09:40 | IPNPDOC ---
Subjective Date Seen The patient was seen on 12/30/16. Subjective Chief Complaint/HPI The patient is a 81-year-old male admitted with a reason for visit of Esophageal Mass. Events since last encounter failed swallow eval. 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 Attempted NGT placement for temp TF with failed attempts. Constitutional: Denies: Chills, Fever, Night Sweats Skin: Denies: Breakdown, Lesions, Rash Pulmonary: Denies: Cough, Dyspnea Cardiovascular: Denies: Chest Pain, Lt Headedness, Orthopnea, Palpitations, Paroxysmal Noc. Dyspnea Gastrointestinal: Denies: Abdominal Pain, Constipation, Diarrhea, Nausea, Vomiting Genitourinary: Denies: Dysuria, Frequency, Incontinence, Retention Objective Physical Examination General Exam: Positive: Alert, No Acute Distress ENT Exam: Positive: Mucous membr. moist/pink Neck Exam: Positive: Other (no Virchov node noted in supraclavicular notch), Supple Chest Exam: Positive: Clear to auscultation, Normal air movement Heart Exam: Positive: Normal S1, Normal S2, Rate Normal Abdomen Exam: Positive: Normal bowel sounds, Soft, Negative: Tenderness Extremity Exam: Negative: Edema Skin Exam: Positive: Nl turgor and temperature Psych Exam: Positive: Mental status NL, Mood NL Assessment /Plan Problems (1) Esophageal mass Status: Acute Discussed With: Nurse, Patient, Family with Pt Consent Problem Text: Thickening of the ma of the hypopharynx and esophagus on CT. ENT was consulted. Patient is awaiting cookie swallow study, and it was recommended that he be nothing by mouth until then. Patient does not want to start tube feeds, although he is rather cachectic. CT showed thickening of the larynx and esophagus. Sputum culture was positive for yeast. Started patient empirically on treatment for candidal esophagitis, as it could have this appearance on imaging and patient is having odynophasia. - Failed Swallow study - Nothing by mouth due to aspiration risk. - Nystatin swish and swallow for an attempted empiric treatment of odynophagia/ Diflucan - Follow up ENT recommendations - Family meeting to review options: TF, aspiration risks, CAR REPAIRER (2) Mass of lung Status: Acute Discussed With: Nurse, Patient, Family with Pt Consent Problem Specific Plan: Consult Specialist, Monitor Clinically Problem Text: Biopsy was done by Dr. Cox 12/26/16 and pathology results are pending. Chest x-ray showed very small pneumothorax, which has been stable. Patient is not having any shortness of breath or other symptoms. -Pathology results pending (3) Vomiting Status: Resolved Problem Specific Plan: Monitor Clinically Problem Text: Nausea and vomiting have resolved. Patient is currently nothing by mouth. ENT consulted for laryngeal thickening. Swallow study pending. 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 O2 3L. (6) Leukocytosis Status: Acute Problem Specific Plan: Monitor Clinically Problem Text: Etiology of this unclear. Resp panel neg, Blood culture x 1 Neg, x 1 pending, did recently finished course of prednisone. Currently on Zosyn IV. Tmax 100.8. Likely related to neoplastic syndrome. Plan/VTE VTE Prophylaxis Ordered?: Yes (restart anticoagulation; greater than 24 hours from biopsy; likely malignancy places patient at high risk for DVT) Plan/Urinary Catheter Reason for insertion/continuin: Acute obstruct/retention Plan Attending note: I saw and evaluated the patient, and agree with the plan of care as discussed and document above by Radha Tripp. I had a family meeting with the patient, and a multitude of family members regarding the patient's wishes and long-term care plan. I discussed the new diagnosis of adenocarcinoma of the lung, and what he might need for further treatment, should he choose to pursue this. I also discussed options regarding PEG tube placement, versus comfort care, versus medical management of complications due to aspiration. Patient seems reluctant to get the PEG tube and wishes to continue eating, however after much deliberation with his family, he decided to go ahead with the PEG tube. Family also wishes to pursue everything possible for his lung cancer. They expressed desire to have his PET scan done, get his lung function testing done, and "get everything done while is here." I indicated that this is generally not how things happen. I indicated that we can help get him set up to see the merchandising specialist to go over his treatment plan, and that his PET scan and lung function testing would be done as an outpatient. The family seems very discontent with this plan. I will have patient family services talk to the family tomorrow to explain everything in detail. A surgical consult to Dr. Castro was placed for PEG tube, as the interventional radiologist is not available. Rebeca Campbell MD VS, I&O, 24H, Fishbone Vital Signs/I&O Vital Signs Date Time Temp Pulse Resp B/P Pulse Ox O2 Delivery O2 Flow Rate FiO2 12/30/16 06:00 98.9 76 19 120/60 92 Room Air 12/29/16 22:00 2.0 12/25/16 19:49 95 I&O- Last 24 Hours up to 6 AM 12/30/16 06:00 Intake Total 700 ml Output Total 650 ml Balance 50 ml Laboratory Data 24H LABS Laboratory Tests 2 12/30/16 05:37: Blood Urea Nitrogen 9, Creatinine 0.64L, Sodium Level 143, Potassium Level 3.3L , Chloride Level 108H, Carbon Dioxide Level 26, Calcium Level 7.9L, Aspartate Amino Transf (AST/SGOT) 12L, Alanine Aminotransferase (ALT/SGPT) 13, Alkaline Phosphatase 57, Total Bilirubin 0.7, Total Protein 5.2L, Albumin 2.2L, Albumin/ Globulin Ratio 0.73L, Anion Gap 9, White Blood Count 8.7, Red Blood Count 3.73L , Hemoglobin 11.0L, Hematocrit 33.4L, Mean Corpuscular Volume 89.5, Mean Corpuscular Hemoglobin 29.6, Mean Corpuscular Hemoglobin Concent 33.0, Red Cell Distribution Width 13.3, Platelet Count 180, Neutrophils (%) (Auto) 69.3H, Lymphocytes (%) (Auto) 16.9L, Monocytes (%) (Auto) 6.3H, Eosinophils (%) (Auto) 5.2H, Basophils (%) (Auto) 0.3, Neutrophils # (Auto) 6.0, Lymphocytes # (Auto) 1.6, Monocytes # (Auto) 0.6, Eosinophils # (Auto) 0.4, Basophils # (Auto) 0.0, Glomerular Filtration Rate > 60.0, Large Unclassified Cells # 0.2, Large Unclassified Cells % 1.8 CBC/BMP Laboratory Tests 12/30/16 05:37 Calcium Level 7.9 L, Aspartate Amino Transf (AST/SGOT) 12 L, Alanine Aminotransferase (ALT/SGPT) 13, Alkaline Phosphatase 57, Total Bilirubin 0.7, Total Protein 5.2 L, Albumin 2.2 L, Red Blood Count 3.73 L, Mean Corpuscular Volume 89.5, Mean Corpuscular Hemoglobin 29.6, Mean Corpuscular Hemoglobin Concent 33.0, Red Cell Distribution Width 13.3, Neutrophils (%) (Auto) 69.3 H, Lymphocytes (%) (Auto) 16.9 L, Monocytes (%) (Auto) 6.3 H, Eosinophils (%) (Auto ) 5.2 H, Basophils (%) (Auto) 0.3, Neutrophils # (Auto) 6.0, Lymphocytes # (Auto ) 1.6, Monocytes # (Auto) 0.6, Eosinophils # (Auto) 0.4, Basophils # (Auto) 0.0 Microbiology Microbiology 12/25/16 Blood Culture - Preliminary, Resulted No Growth after 72 hours. All specime... 12/25/16 Blood Culture - Final, Complete Staphylococcus Epidermidis Corynebacterium Sp. Not Jk 12/26/16 Gram Stain - Final, Complete 12/26/16 Surgical Biopsy Culture - Final, Complete 12/25/16 MRSA Screen - Final, Complete 12/25/16 Respiratory Virus Panel (PCR) ([facility]) - Final, Complete 12/25/16 Gram Stain - Final, Complete 12/25/16 Sputum Culture - Final, Complete Klebsiella Pneumoniae Yeast Like Organism Nimisha Tripp Dec 30, 2016 09:40 REBECA CAMPBELL MD Dec 30, 2016 18:41
[2016-12-30] MEDS: NYSTATIN 500,000 U/5 ML SUSP UDC SS SCH ×2 (10:11→20:15)
[2016-12-30] MEDS: PANTOPRAZOLE 40MG INJ (PROTONIX) (C9113) IV SCH ×2 (10:11→20:15)
[2016-12-30] MEDS: FLUCONAZOLE 400 MG in APPROPRIATE DILUENT 1 EA IV SCH (10:11)
[2016-12-30 14:00] VITALS: BP 159/69
[2016-12-30 22:00] VITALS: BP 140/68
[2016-12-31] MEDS: KCL 20MEQ IN D5/0.45NS 1000ML 1,000 ML IV SCH (00:07)
[2016-12-31] MEDS: PIPERACILLIN/TAZOBACTAM SOD 3.375 GM in D5W MINI-BAG PLUS 50 ML IV SCH ×4 (00:07→18:55)
[2016-12-31] MEDS: LEVALBUTEROL 1.25 MG/0.5 ML CONCENTRATE NEB INH SCH ×5 (03:55→21:23)
[2016-12-31] MEDS: IPRATROPIUM 0.02% SOLN 0.5MG/2.5 ML NEB INH SCH ×5 (03:55→21:23)
[2016-12-31] MEDS: HEPARIN SOD (PORCINE) 5000 UNITS/ML VIAL SQ SCH ×2 (05:42→13:29)
[2016-12-31 06:00] VITALS: BP 145/66
[2016-12-31 06:39] LABS: BASO % 0.2 % (0.0-1.0); EOS # 0.6 K/mm3 (0.0-0.50); EOS % 6.8 % (0.0-3.0); LARGE UNSTAINED CELL # 0.1 K/mm3 (0.0-0.4); LARGE UNSTAINED CELL % 1.4 % (0.0-4.0); LYMPH # 1.5 K/mm3 (1.5-4.5); LYMPH % 15.5 % (24.0-44.0); MEAN CORPUSCULAR HEMOGLOBIN 29.8 pg (27.0-33.0); MEAN CORPUSCULAR HGB CONC 32.8 g/dl (32.0-36.5); MEAN CORPUSCULAR VOLUME 90.8 fl (80.0-96.0); MONO # 0.5 K/mm3 (0.0-0.8); MONO % 5.3 % (0.0-5.0); NEUTROPHILS # 6.2 K/mm3 (1.8-7.7); NEUTROPHILS % 70.8 % (36.0-66.0); PLATELET COUNT, AUTOMATED 189 k/mm3 (150-450); RED CELL DISTRIBUTION WIDTH 13.5 % (11.5-14.5); WHITE BLOOD COUNT 8.7 K/mm3 (4.0-10.0)
[2016-12-31 06:56] LABS: ALBUMIN 2.4 GM/DL (3.2-5.2); ALBUMIN/GLOBULIN RATIO 0.83 (1.00-1.93); ALKALINE PHOSPHATASE 58 U/L (45-117); ALT/SGPT 16 U/L (12-78); ANION GAP 7 MEQ/L (8-16); AST/SGOT 16 U/L (15-37); BILIRUBIN,TOTAL 0.6 MG/DL (0.2-1.0); BLOOD UREA NITROGEN 7 MG/DL (7-18); CALCIUM LEVEL 8.2 MG/DL (8.8-10.2); CARBON DIOXIDE LEVEL 28 MEQ/L (21-32); CHLORIDE LEVEL 108 MEQ/L (98-107); GLOMERULAR FILTRATION RATE > 60.0 (>35); GLUCOSE, FASTING 100 MG/DL (83-110); POTASSIUM SERUM 3.4 MEQ/L (3.5-5.1); SODIUM LEVEL 143 MEQ/L (136-145); TOTAL PROTEIN 5.3 GM/DL (6.4-8.2)
[2016-12-31] MEDS ORDERED: KCL 10MEQ IN 100ML SWI (KRUN) 10 MEQ in APPROPRIATE DILUENT 1 EA IV ONE ×2 (09:30)
--- NOTE | 2016-12-31 09:42 | IPNPDOC ---
Subjective Date Seen The patient was seen on 12/31/16. Subjective Chief Complaint/HPI The patient is a 81-year-old male admitted with a reason for visit of Esophageal Mass. Events since last encounter Family and patient has consented to PEG placement for TF. Patient unable to verbalize who will assist with TF at home. Constitutional: Reports: Weakness, Weight Loss ENT: Reports: Dysphagia, Denies: Ear Pain, Head Aches Pulmonary: Denies: Cough, Dyspnea Cardiovascular: Denies: Chest Pain, Lt Headedness, Orthopnea, Palpitations, Paroxysmal Noc. Dyspnea Gastrointestinal: Denies: Abdominal Pain, Constipation, Diarrhea, Nausea, Vomiting Genitourinary: Denies: Dysuria, Frequency, Incontinence, Retention Psych: Reports: Mood Normal, Denies: Depression, Memory Issues Objective Physical Examination General Exam: Positive: Alert, No Acute Distress ENT Exam: Positive: Mucous membr. moist/pink Neck Exam: Positive: Other (no Virchov node noted in supraclavicular notch), Supple Chest Exam: Positive: Clear to auscultation, Normal air movement Heart Exam: Positive: Normal S1, Normal S2, Rate Normal Abdomen Exam: Positive: Normal bowel sounds, Soft, Negative: Tenderness Extremity Exam: Negative: Edema Skin Exam: Positive: Nl turgor and temperature Psych Exam: Positive: Mental status NL, Mood NL Assessment /Plan Problems (1) Esophageal mass Status: Acute Discussed With: Nurse, Patient, Family with Pt Consent Problem Text: Thickening of the ma of the hypopharynx and esophagus on CT. ENT was consulted. Patient is awaiting cookie swallow study, and it was recommended that he be nothing by mouth until then. Patient does not want to start tube feeds, although he is rather cachectic. CT showed thickening of the larynx and esophagus. Sputum culture was positive for yeast. Started patient empirically on treatment for candidal esophagitis, as it could have this appearance on imaging and patient is having odynophasia. - Failed Swallow study - Nothing by mouth due to aspiration risk. - Nystatin swish and swallow for an attempted empiric treatment of odynophagia/ Diflucan - Follow up ENT recommendations - Family meeting to review options: opted for PEG tube. Concerns regarding assistance with TF at home on discharge. (2) Mass of lung Status: Acute Discussed With: Nurse, Patient, Family with Pt Consent Problem Specific Plan: Consult Specialist, Monitor Clinically Problem Text: Biopsy was done by Dr. Cox 12/26/16 and pathology results are pending. Chest x-ray showed very small pneumothorax, which has been stable. Patient is not having any shortness of breath or other symptoms. -Pathology results: prelim: adenocarcinoma, sent to [facility] second opinion. See path report. (3) Vomiting Status: Resolved Problem Specific Plan: Monitor Clinically Problem Text: Nausea and vomiting have resolved. Patient is currently nothing by mouth. ENT consulted for laryngeal thickening. Swallow study pending. 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 O2 3L. (6) Leukocytosis Status: Acute Problem Specific Plan: Monitor Clinically Problem Text: Etiology of this unclear. Resp panel neg, Blood culture x 1 Neg, x 1 pending, did recently finished course of prednisone. Currently on Zosyn IV. Tmax 100.8. Likely related to neoplastic syndrome. Plan/VTE VTE Prophylaxis Ordered?: Yes (restart anticoagulation; greater than 24 hours from biopsy; likely malignancy places patient at high risk for DVT) Plan/Urinary Catheter Reason for insertion/continuin: Acute obstruct/retention Plan Attending note: I saw and evaluated the patient, and agree with the plan of care as discussed and documented above by Radha Tripp. Patient is to go for PEG tube placement tomorrow. Dietary consult ordered for tube feeds and education for when the patient is discharged. Patient will follow-up outpatient with pulmonology to discuss adenocarcinoma of the lung, PET scan, and pulmonary function testing. Rebeca Campbell MD VS, I&O, 24H, [place] Vital Signs/I&O Vital Signs Date Time Temp Pulse Resp B/P Pulse Ox O2 Delivery O2 Flow Rate FiO2 12/31/16 06:00 98.9 75 16 145/66 99 Nasal Cannula 3.0 12/25/16 19:49 95 I&O- Last 24 Hours up to 6 AM 12/31/16 06:00 Intake Total 1440 ml Output Total 1225 ml Balance 215 ml Laboratory Data 24H LABS Laboratory Tests 2 12/31/16 06:26: Blood Urea Nitrogen 7, Creatinine 0.70, Sodium Level 143, Potassium Level 3.4L, Chloride Level 108H, Carbon Dioxide Level 28, Calcium Level 8.2L, Aspartate Amino Transf (AST/SGOT) 16, Alanine Aminotransferase (ALT/SGPT) 16, Alkaline Phosphatase 58, Total Bilirubin 0.6, Total Protein 5.3L, Albumin 2.4L, Albumin/ Globulin Ratio 0.83L, Anion Gap 7L, White Blood Count 8.7, Red Blood Count 3.88L , Hemoglobin 11.5L, Hematocrit 35.2L, Mean Corpuscular Volume 90.8, Mean Corpuscular Hemoglobin 29.8, Mean Corpuscular Hemoglobin Concent 32.8, Red Cell Distribution Width 13.5, Platelet Count 189, Neutrophils (%) (Auto) 70.8H, Lymphocytes (%) (Auto) 15.5L, Monocytes (%) (Auto) 5.3H, Eosinophils (%) (Auto) 6.8H, Basophils (%) (Auto) 0.2, Neutrophils # (Auto) 6.2, Lymphocytes # (Auto) 1.5, Monocytes # (Auto) 0.5, Eosinophils # (Auto) 0.6H, Basophils # (Auto) 0.0, Glomerular Filtration Rate > 60.0, Large Unclassified Cells # 0.1, Large Unclassified Cells % 1.4 CBC/BMP Laboratory Tests 12/31/16 06:26 Calcium Level 8.2 L, Aspartate Amino Transf (AST/SGOT) 16, Alanine Aminotransferase (ALT/SGPT) 16, Alkaline Phosphatase 58, Total Bilirubin 0.6, Total Protein 5.3 L, Albumin 2.4 L, Red Blood Count 3.88 L, Mean Corpuscular Volume 90.8, Mean Corpuscular Hemoglobin 29.8, Mean Corpuscular Hemoglobin Concent 32.8, Red Cell Distribution Width 13.5, Neutrophils (%) (Auto) 70.8 H, Lymphocytes (%) (Auto) 15.5 L, Monocytes (%) (Auto) 5.3 H, Eosinophils (%) (Auto ) 6.8 H, Basophils (%) (Auto) 0.2, Neutrophils # (Auto) 6.2, Lymphocytes # (Auto ) 1.5, Monocytes # (Auto) 0.5, Eosinophils # (Auto) 0.6 H, Basophils # (Auto) 0.0 Microbiology Microbiology 12/25/16 Blood Culture - Final, Complete NO GROWTH AFTER 5 DAYS 12/25/16 Blood Culture - Final, Complete Staphylococcus Epidermidis Corynebacterium Sp. Not Jk 12/26/16 Gram Stain - Final, Complete 12/26/16 Surgical Biopsy Culture - Final, Complete 12/25/16 MRSA Screen - Final, Complete 12/25/16 Respiratory Virus Panel (PCR) ([facility]) - Final, Complete 12/25/16 Gram Stain - Final, Complete 12/25/16 Sputum Culture - Final, Complete Klebsiella Pneumoniae Yeast Like Organism Nimisha Tripp Dec 31, 2016 09:42 REBECA CAMPBELL MD Dec 31, 2016 19:30
[2016-12-31] MEDS: FLUCONAZOLE 400 MG in APPROPRIATE DILUENT 1 EA IV SCH (09:43)
[2016-12-31] MEDS: NYSTATIN 500,000 U/5 ML SUSP UDC SS SCH ×2 (09:43→21:48)
[2016-12-31] MEDS: PANTOPRAZOLE 40MG INJ (PROTONIX) (C9113) IV SCH ×2 (09:43→21:48)
[2016-12-31 14:00] VITALS: BP 177/75
[2016-12-31 15:30] VITALS: BP 165/70
[2016-12-31] MEDS: ACETAMINOPHEN 650 MG SUPP PR PRN (15:38)
[2016-12-31 22:00] VITALS: BP 140/64
--- NOTE | 2016-12-31 23:16 | CR ---
DATE OF CONSULTATION: 12/31/2016 REASON FOR CONSULTATION: Dysphasia, aspiration pneumonia, and abnormal CT with questionable esophageal mass. BRIEF HISTORY OF PRESENT ILLNESS: The patient is a 81-year-old gentleman who presents to the emergency room with a chronic obstructive pulmonary disease (COPD) exacerbation with increasing persistent vomiting, brown emesis, shortness of breath, and on his workup through the emergency room was shown to have a right upper lobe mass with an adenocarcinoma as its final diagnosis during his workup here and had probably some aspiration pneumonia that he has been treated for. Had a cookie swallow that showed aspiration and difficulties with the posterior cervical area; however, on his CT scans of his chest, abdomen, and pelvis he was noted to have some thickening in his distal esophagus with some fluid within the esophagus, suggesting partial obstructive. No evidence of adenopathy was appreciated in this area. No evidence of malignancy or abnormality was appreciated within the stomach itself. PAST MEDICAL HISTORY: Significant for: 1. History of hypertension. 2. History of coronary artery disease. 3. History of thoracic aneurysm. 4. History of tobacco abuse. 5. History of pulmonary cachexia. 6. History of COPD. 7. History of right knee surgery. MEDICATIONS: Include aspirin, atenolol, atorvastatin, lisinopril, multivitamins. He currently is on additional fluconazole and Zosyn as an as well as nebulizers. PHYSICAL EXAMINATION: Reveals an 81-year-old cachectic male who looks older than stated age. HEENT is unremarkable. Neck supple without adenopathy. No cervical adenopathy is appreciated. No supraclavicular, no infraclavicular adenopathy is appreciated. Lungs are diminished bilaterally with some crackles at the bases. Heart is regular. Abdomen is soft, nondistended, nontender. No hepatosplenomegaly is appreciated. No masses are appreciated. IMPRESSION AND PLAN: The patient has some dysphagia issues. The question is, of course, whether he has an esophageal mass that is metastatic to his lung, whether he has achalasia, or whether he has a benign versus malignant stricture in the distal esophagus, but that is a separate issue compared to the cervical dysphasia that he has. Unfortunately with the cervical dysphasia, opening up his distal esophagus, if there is a stenosis, I anticipate will not make a difference with his cervical dysphagia issues and unfortunately will still need a gastrostomy tube placed. If he has a nearly-obstructing lesion and this is not amenable to percutaneous gastrostomy, will plan on a biopsy of this tissue and plan on interventional radiology placing a gastrostomy tube. We have discussed the risks as well as benefits extensively with the family as well as the patient. He would like to proceed with an upper endoscopy with evaluation, possible balloon dilatation, possible percutaneous endoscopic gastrostomy (PEG) tube placement.
[2017-01-01] MEDS: IPRATROPIUM 0.02% SOLN 0.5MG/2.5 ML NEB INH SCH ×7 (00:09→23:32)
[2017-01-01] MEDS: LEVALBUTEROL 1.25 MG/0.5 ML CONCENTRATE NEB INH SCH ×7 (00:09→23:32)
[2017-01-01] MEDS: KCL 20MEQ IN D5/0.45NS 1000ML 1,000 ML IV SCH ×2 (00:13→16:30)
[2017-01-01] MEDS: PIPERACILLIN/TAZOBACTAM SOD 3.375 GM in D5W MINI-BAG PLUS 50 ML IV SCH ×4 (00:13→18:26)
[2017-01-01 06:00] VITALS: BP 144/64
[2017-01-01 06:42] LABS: BASO % 0.3 % (0.0-1.0); EOS # 0.5 K/mm3 (0.0-0.50); EOS % 5.8 % (0.0-3.0); LARGE UNSTAINED CELL # 0.1 K/mm3 (0.0-0.4); LARGE UNSTAINED CELL % 1.5 % (0.0-4.0); LYMPH # 1.1 K/mm3 (1.5-4.5); LYMPH % 12.1 % (24.0-44.0); MEAN CORPUSCULAR HEMOGLOBIN 29.4 pg (27.0-33.0); MEAN CORPUSCULAR HGB CONC 32.9 g/dl (32.0-36.5); MEAN CORPUSCULAR VOLUME 89.3 fl (80.0-96.0); MONO # 0.4 K/mm3 (0.0-0.8); MONO % 4.8 % (0.0-5.0); NEUTROPHILS # 6.3 K/mm3 (1.8-7.7); NEUTROPHILS % 75.5 % (36.0-66.0); PLATELET COUNT, AUTOMATED 173 k/mm3 (150-450); RED CELL DISTRIBUTION WIDTH 13.5 % (11.5-14.5); WHITE BLOOD COUNT 8.3 K/mm3 (4.0-10.0)
[2017-01-01 06:57] LABS: ALBUMIN 2.4 GM/DL (3.2-5.2); ALBUMIN/GLOBULIN RATIO 0.83 (1.00-1.93); ALKALINE PHOSPHATASE 62 U/L (45-117); ALT/SGPT 23 U/L (12-78); ANION GAP 10 MEQ/L (8-16); AST/SGOT 24 U/L (15-37); BILIRUBIN,TOTAL 0.6 MG/DL (0.2-1.0); BLOOD UREA NITROGEN 7 MG/DL (7-18); CALCIUM LEVEL 8.2 MG/DL (8.8-10.2); CARBON DIOXIDE LEVEL 27 MEQ/L (21-32); CHLORIDE LEVEL 107 MEQ/L (98-107); CREATININE FOR GFR 0.73 MG/DL (0.70-1.30); GLOMERULAR FILTRATION RATE > 60.0 (>35); GLUCOSE, FASTING 100 MG/DL (83-110); POTASSIUM SERUM 3.4 MEQ/L (3.5-5.1); SODIUM LEVEL 144 MEQ/L (136-145); TOTAL PROTEIN 5.3 GM/DL (6.4-8.2)
[2017-01-01] MEDS ORDERED: LISINOPRIL 5 MG TAB PO SCH (09:00)
[2017-01-01] MEDS: NYSTATIN 500,000 U/5 ML SUSP UDC SS SCH ×2 (09:27→20:13)
[2017-01-01] MEDS: PANTOPRAZOLE 40MG INJ (PROTONIX) (C9113) IV SCH ×2 (09:27→20:13)
[2017-01-01] MEDS: FLUCONAZOLE 400 MG in APPROPRIATE DILUENT 1 EA IV SCH (09:28)
[2017-01-01] MEDS ORDERED: LIDOCAINE 2% INJ 100 MG/5 ML SDV (FOR ANES.) As Ordered ONE (13:04)
[2017-01-01] MEDS ORDERED: PROPOFOL 200 MG/20 ML VIAL As Ordered ONE (13:04)
--- NOTE | 2017-01-01 15:12 | ROOR ---
Patient Name: Mukul Marino Procedure Date: 01/01/2017 2:28 PM Date of : 1935 Age: 81 Room: [facility] Gender: Male Note Status: Finalized Procedure: EGD and PEG Tube Placement Indications: Dysphagia Providers: Butch Luna Jr, MD Referring MD: 2. Inpatient 2. Inpatient Requesting Provider: Medicines: Propofol per Anesthesia Complications: No immediate complications. Procedure: Pre-Anesthesia Assessment: - Prior to the procedure, a History and Physical was performed, and patient medications and allergies were reviewed. The patient is competent. The risks and benefits of the procedure and the sedation options and risks were discussed with the patient. All questions were answered and informed consent was obtained. Patient identification and proposed procedure were verified by the physician and the nurse in the pre-procedure area and in the procedure room. Mental Status Examination: alert and oriented. Airway Examination: normal oropharyngeal airway and neck mobility. Respiratory Examination: clear to auscultation. CV Examination: normal. ASA Grade Assessment: II - A patient with mild systemic disease. After reviewing the risks and benefits, the patient was deemed in satisfactory condition to undergo the procedure. The anesthesia plan was to use moderate sedation / analgesia (conscious sedation). Immediately prior to administration of medications, the patient was re-assessed for adequacy to receive sedatives. The heart rate, respiratory rate, oxygen saturations, blood pressure, adequacy of pulmonary ventilation, and response to care were monitored throughout the procedure. The physical status of the patient was re-assessed after the procedure. The Endoscope was introduced through the mouth, and advanced to the second part of duodenum. The upper GI endoscopy was accomplished without difficulty. The patient tolerated the procedure well. Findings: The lumen of the upper third of the esophagus, middle third of the esophagus and lower third of the esophagus was moderately dilated. Three oozing linear gastric ulcers were found at the gastroesophageal junction and in the gastric body. Moderate inflammation characterized by congestion (edema), erythema, friability and granularity was found in the gastric body, in the gastric antrum, in the prepyloric region of the stomach and at the pylorus. Patchy severe inflammation characterized by congestion (edema), erythema, friability and granularity was found in the duodenal bulb. The second portion of the duodenum was normal. The gastric antrum was normal. The patient was placed in the supine position for PEG placement. The stomach was insufflated to appose gastric and abdominal ma. A site was located in the antrum of the stomach with excellent transillumination and manual external pressure for placement. The abdominal wall was marked and prepped in a sterile manner. The area was anesthetized with 4 mL of 1% lidocaine. The trocar needle was introduced through the abdominal wall and into the stomach under direct endoscopic view. A snare was introduced through the endoscope and opened in the gastric lumen. The guide wire was passed through the trocar and into the open snare. The snare was closed around the guide wire. The endoscope and snare were removed, pulling the wire out through the mouth. A skin incision was made at the site of needle insertion. The 20 Fr Deni-Cook gastrostomy tube was lubricated. The G-tube was passed over the guide wire through the mouth, and into the stomach. The trocar needle was removed, and the gastrostomy tube was pulled out from the stomach through the skin. The guide wire was removed, and the external bumper attached to the gastrostomy tube. The feeding tube was then cut to an appropriate length. The final position of the gastrostomy tube was confirmed by relook endoscopy, and skin marking noted to be 2.5 cm at the external bumper. The final tension and compression of the abdominal wall by the PEG tube and external bumper were checked and revealed that the bumper was loose and lightly touching the skin and that the PEG balloon was loose and lightly touching the stomach. The feeding tube was capped, and the tube site was cleaned and dressed. Impression: - Dilation in the upper third of the esophagus, in the middle third of the esophagus and in the lower third of the esophagus. - Oozing gastric ulcers. - Gastritis. - Duodenitis. - Normal second portion of the duodenum. - Normal antrum. - A PEG placement was successfully completed. - No specimens collected. Recommendation: - [facility]. Butch Luna MD Butch Luna Jr, MD 01/01/2017 3:11:44 PM This report has been signed electronically. Number of Addenda: 0 Note Initiated On: 01/01/2017 2:28 PM Estimated Blood Loss: Estimated blood loss: none.
[2017-01-01 16:50] VITALS: BP 178/77
[2017-01-01 17:15] VITALS: BP 178/77
[2017-01-01 17:45] VITALS: BP 174/74
[2017-01-01] MEDS ORDERED: KCL 10MEQ IN 100ML SWI (KRUN) 10 MEQ in APPROPRIATE DILUENT 1 EA IV ONE ×2 (18:00)
[2017-01-01] MEDS: SUCRALFATE SUSP 1GM/10ML UD GT SCH (18:26)
[2017-01-01] MEDS: LISINOPRIL 5 MG TAB PEG SCH (18:27)
[2017-01-01 18:45] VITALS: BP 175/77
[2017-01-01] MEDS: ACETAMINOPHEN 650 MG SUPP PR PRN (18:48)
[2017-01-01 22:00] VITALS: BP 156/68
--- NOTE | 2017-01-01 22:45 | IPNPDOC ---
Subjective Date Seen The patient was seen on 01/01/17. Subjective Chief Complaint/HPI The patient is a 81-year-old male admitted with a reason for visit of Esophageal Mass. Events since last encounter Patient was seen after placement of his PEG tube. Family was in attendance. He was still a bit tired from procedural medication, but denied any complaints. Constitutional: Reports: Fatigue, Denies: Chills, Fever Eyes: Denies: Vision change ENT: Denies: Head Aches Pulmonary: Reports: Cough, Denies: Dyspnea Cardiovascular: Denies: Chest Pain, Edema, Palpitations Gastrointestinal: Denies: Abdominal Pain, Nausea, Vomiting Objective Physical Examination General Exam: Positive: Alert, No Acute Distress ENT Exam: Positive: Mucous membr. moist/pink Neck Exam: Positive: Other (no Virchov node noted in supraclavicular notch), Supple Chest Exam: Positive: Clear to auscultation, Normal air movement Heart Exam: Positive: Normal S1, Normal S2, Rate Normal Abdomen Exam: Positive: Normal bowel sounds, Soft, Negative: Tenderness Extremity Exam: Negative: Edema Skin Exam: Positive: Nl turgor and temperature Psych Exam: Positive: Mental status NL, Mood NL Assessment /Plan Problems (1) Esophageal mass Status: Acute Discussed With: Nurse, Patient, Family with Pt Consent Problem Text: Thickening of the ma of the hypopharynx and esophagus on CT. ENT was consulted. Patient is awaiting cookie swallow study, and it was recommended that he be nothing by mouth until then. Patient does not want to start tube feeds, although he is rather cachectic. CT showed thickening of the larynx and esophagus. Sputum culture was positive for yeast. Started patient empirically on treatment for candidal esophagitis, as it could have this appearance on imaging and patient is having odynophasia. - Failed Swallow study - Nothing by mouth due to aspiration risk. - Nystatin swish and swallow for an attempted empiric treatment of odynophagia/ Diflucan - Follow up ENT recommendations - Family meeting to review options: opted for PEG tube. Concerns regarding assistance with TF at home on discharge. 01/01: PEG tube placed. Family states there is someone at home who will be able to do the patient's tube feeds. No operative note available yet when patient seen this afternoon. (2) Mass of lung Status: Acute Discussed With: Nurse, Patient, Family with Pt Consent Problem Specific Plan: Consult Specialist, Monitor Clinically Problem Text: Biopsy was done by Dr. Cox 12/26/16 and pathology results are pending. Chest x-ray showed very small pneumothorax, which has been stable. Patient is not having any shortness of breath or other symptoms. -Pathology results: prelim: adenocarcinoma, sent to [facility] second opinion. See path report. (3) Vomiting Status: Resolved Problem Specific Plan: Monitor Clinically Problem Text: Nausea and vomiting have resolved. Patient is currently nothing by mouth. ENT consulted for laryngeal thickening. Swallow study pending. -Started treatment for possible candidal esophagitis due to odynophagia and yeast on sputum cx 01/01 -- denies vomiting. NPO. PEG tube placed, plan to begin feeds tomorrow. (4) Hypertension Status: Chronic Response to Treatment: Stable Problem Text: I restarted lisinopril, as he was hypertensive this evening, and pressures have been trending a bit higher these last few days. 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 O2 3L. (6) Leukocytosis Status: Acute Problem Specific Plan: Monitor Clinically Problem Text: Etiology of this unclear. Resp panel neg, Blood culture x 1 Neg, x 1 pending, did recently finished course of prednisone. Currently on Zosyn IV. Tmax 100.8. Likely related to neoplastic syndrome. Plan/VTE VTE Prophylaxis Ordered?: Yes (restart anticoagulation; greater than 24 hours from biopsy; likely malignancy places patient at high risk for DVT) Plan/Urinary Catheter Reason for insertion/continuin: Acute obstruct/retention VS, I&O, 24H, Fishbone Vital Signs/I&O Vital Signs Date Time Temp Pulse Resp B/P Pulse Ox O2 Delivery O2 Flow Rate FiO2 01/01/17 18:45 99.0 68 18 175/77 95 Nasal Cannula 2.0 I&O- Last 24 Hours up to 6 AM 01/01/17 06:00 Intake Total 890 ml Output Total 1150 ml Balance -260 ml Laboratory Data 24H LABS Laboratory Tests 2 01/01/17 06:13: Blood Urea Nitrogen 7, Creatinine 0.73, Sodium Level 144, Potassium Level 3.4L, Chloride Level 107, Carbon Dioxide Level 27, Calcium Level 8.2L, Aspartate Amino Transf (AST/SGOT) 24, Alanine Aminotransferase (ALT/SGPT) 23, Alkaline Phosphatase 62, Total Bilirubin 0.6, Total Protein 5.3L, Albumin 2.4L, Albumin/ Globulin Ratio 0.83L, Anion Gap 10, White Blood Count 8.3, Red Blood Count 3.77L , Hemoglobin 11.1L, Hematocrit 33.7L, Mean Corpuscular Volume 89.3, Mean Corpuscular Hemoglobin 29.4, Mean Corpuscular Hemoglobin Concent 32.9, Red Cell Distribution Width 13.5, Platelet Count 173, Neutrophils (%) (Auto) 75.5H, Lymphocytes (%) (Auto) 12.1L, Monocytes (%) (Auto) 4.8, Eosinophils (%) (Auto) 5.8H, Basophils (%) (Auto) 0.3, Neutrophils # (Auto) 6.3, Lymphocytes # (Auto) 1.1L, Monocytes # (Auto) 0.4, Eosinophils # (Auto) 0.5, Basophils # (Auto) 0.0, Glomerular Filtration Rate > 60.0, Large Unclassified Cells # 0.1, Large Unclassified Cells % 1.5 CBC/BMP Laboratory Tests 01/01/17 06:13 Calcium Level 8.2 L, Aspartate Amino Transf (AST/SGOT) 24, Alanine Aminotransferase (ALT/SGPT) 23, Alkaline Phosphatase 62, Total Bilirubin 0.6, Total Protein 5.3 L, Albumin 2.4 L, Red Blood Count 3.77 L, Mean Corpuscular Volume 89.3, Mean Corpuscular Hemoglobin 29.4, Mean Corpuscular Hemoglobin Concent 32.9, Red Cell Distribution Width 13.5, Neutrophils (%) (Auto) 75.5 H, Lymphocytes (%) (Auto) 12.1 L, Monocytes (%) (Auto) 4.8, Eosinophils (%) (Auto) 5.8 H, Basophils (%) (Auto) 0.3, Neutrophils # (Auto) 6.3, Lymphocytes # (Auto) 1.1 L, Monocytes # (Auto) 0.4, Eosinophils # (Auto) 0.5, Basophils # (Auto) 0.0 Microbiology Microbiology 12/25/16 Blood Culture - Final, Complete NO GROWTH AFTER 5 DAYS 12/25/16 Blood Culture - Final, Complete Staphylococcus Epidermidis Corynebacterium Sp. Not Jk 12/26/16 Gram Stain - Final, Complete 12/26/16 Surgical Biopsy Culture - Final, Complete 12/25/16 MRSA Screen - Final, Complete 12/25/16 Respiratory Virus Panel (PCR) ([facility]) - Final, Complete 12/25/16 Gram Stain - Final, Complete 12/25/16 Sputum Culture - Final, Complete Klebsiella Pneumoniae Yeast Like Organism MARILEE RICHMOND DO Jan 01, 2017 22:45
[2017-01-02] MEDS: SUCRALFATE SUSP 1GM/10ML UD GT SCH ×4 (00:08→18:15)
[2017-01-02] MEDS: PIPERACILLIN/TAZOBACTAM SOD 3.375 GM in D5W MINI-BAG PLUS 50 ML IV SCH ×3 (00:08→12:51)
[2017-01-02 02:00] VITALS: BP 144/81
[2017-01-02] MEDS: KCL 20MEQ IN D5/0.45NS 1000ML 1,000 ML IV SCH (03:36)
[2017-01-02] MEDS: LEVALBUTEROL 1.25 MG/0.5 ML CONCENTRATE NEB INH SCH ×6 (04:17→23:24)
[2017-01-02] MEDS: IPRATROPIUM 0.02% SOLN 0.5MG/2.5 ML NEB INH SCH ×6 (04:17→23:24)
[2017-01-02 06:00] VITALS: BP 137/91
--- NOTE | 2017-01-02 06:08 | IPN ---
DATE: 01/01/2017 ATTENDING PHYSICIAN: Dr. Melisa Castañeda Mukul is an 81-year-old gentleman who has a recent diagnosis of a positive biopsy of adenocarcinoma of the lung, chronic obstructive pulmonary disease (COPD), persistent vomiting, and esophageal stricture. He has failed a cookie swallow and is status post consult with Dr. Luna for a percutaneous endoscopic gastrostomy (PEG) tube placement. Multiple family meetings have been conducted and patient and family are agreeable to a PEG tube. The family is agreeable to assist with tube feeding post placement and post discharge. On physical exam today, the patient denies chest pain, headache, blurred vision, dizziness, or shortness of breath. He has been afebrile. Vital signs have remained stable. Oxygen saturation is in the mid 90s with 2 liters nasal cannula. He has been weaned off his oxygen and ambulating in the hallway this morning without any difficulty. Labs today show a hemoglobin and hematocrit (H and H) off 11 and 33. Chemistries are stable with a continued slightly low potassium of 3.4. The patient continues to receive D5 normal saline with 20 mEq of potassium in his IV fluids. HEENT: Neck is supple. Without lymphadenopathy or jugular venous distention (JVD). Cardiovascular: Heart rate and rhythm are regular. Pulmonary: Lungs are clear to auscultation bilaterally. Abdomen: Soft. Nontender. Neurologic: He is alert and oriented times three. Psychiatric: He is pleasant. Conversation appropriate and congruent. Patient maintains eye contact. ASSESSMENT: 1. Dysphagia with failed cookie swallow. Patient will proceed with PEG tube placement today with Dr. Luna. 2. Adenocarcinoma of the lung. Patient will followup with pulmonology and appropriate testing as an outpatient once he is medically stable and discharged from the facility. 3. COPD. The patient has continued with his routine medications. Oxygen saturations have remained stable and his breathing has stabilized. The patient verbalizes understanding and agreement with the plan. We will followup with him in the morning.
[2017-01-02 06:32] LABS: BASO % 0.6 % (0.0-1.0); EOS # 0.4 K/mm3 (0.0-0.50); EOS % 4.6 % (0.0-3.0); LARGE UNSTAINED CELL # 0.2 K/mm3 (0.0-0.4); LARGE UNSTAINED CELL % 2.5 % (0.0-4.0); LYMPH # 1.2 K/mm3 (1.5-4.5); LYMPH % 12.8 % (24.0-44.0); MEAN CORPUSCULAR HEMOGLOBIN 29.3 pg (27.0-33.0); MEAN CORPUSCULAR HGB CONC 32.2 g/dl (32.0-36.5); MEAN CORPUSCULAR VOLUME 91.1 fl (80.0-96.0); MONO # 0.4 K/mm3 (0.0-0.8); MONO % 5.6 % (0.0-5.0); NEUTROPHILS # 5.7 K/mm3 (1.8-7.7); NEUTROPHILS % 73.8 % (36.0-66.0); PLATELET COUNT, AUTOMATED 175 k/mm3 (150-450); RED CELL DISTRIBUTION WIDTH 13.8 % (11.5-14.5); WHITE BLOOD COUNT 7.7 K/mm3 (4.0-10.0)
[2017-01-02 06:52] LABS: ALBUMIN 2.6 GM/DL (3.2-5.2); ALBUMIN/GLOBULIN RATIO 0.87 (1.00-1.93); ALKALINE PHOSPHATASE 65 U/L (45-117); ALT/SGPT 27 U/L (12-78); ANION GAP 7 MEQ/L (8-16); AST/SGOT 25 U/L (15-37); BILIRUBIN,TOTAL 0.6 MG/DL (0.2-1.0); BLOOD UREA NITROGEN 6 MG/DL (7-18); CALCIUM LEVEL 8.3 MG/DL (8.8-10.2); CARBON DIOXIDE LEVEL 28 MEQ/L (21-32); CHLORIDE LEVEL 107 MEQ/L (98-107); CREATININE FOR GFR 0.82 MG/DL (0.70-1.30); GLOMERULAR FILTRATION RATE > 60.0 (>35); GLUCOSE, FASTING 97 MG/DL (83-110); POTASSIUM SERUM 3.8 MEQ/L (3.5-5.1); SODIUM LEVEL 142 MEQ/L (136-145); TOTAL PROTEIN 5.6 GM/DL (6.4-8.2)
--- NOTE | 2017-01-02 07:30 | IPNPDOC ---
Subjective Date Seen The patient was seen on 01/02/17. Subjective Chief Complaint/HPI The patient is a 81-year-old male admitted with a reason for visit of Esophageal Mass. Events since last encounter PEG tube placed yesterday. Has started TF per Dr. Luna's instructions. Tolerating well. denies c/o Constitutional: Denies: Chills, Fever, Night Sweats ENT: Denies: Dysphagia, Ear Pain, Head Aches Skin: Denies: Breakdown, Lesions, Rash Pulmonary: Denies: Cough, Dyspnea Gastrointestinal: Denies: Abdominal Pain, Constipation, Diarrhea, Nausea, Vomiting Genitourinary: Denies: Dysuria, Frequency, Incontinence, Retention Psych: Reports: Mood Normal, Denies: Depression, Memory Issues Objective Physical Examination General Exam: Positive: Alert, No Acute Distress ENT Exam: Positive: Mucous membr. moist/pink Neck Exam: Positive: Other (no Virchov node noted in supraclavicular notch), Supple Chest Exam: Positive: Clear to auscultation, Normal air movement Heart Exam: Positive: Normal S1, Normal S2, Rate Normal Abdomen Exam: Positive: Normal bowel sounds, Soft, Negative: Tenderness Extremity Exam: Negative: Edema Skin Exam: Positive: Nl turgor and temperature Psych Exam: Positive: Mental status NL, Mood NL Assessment /Plan Problems (1) Esophageal mass Status: Acute Discussed With: Nurse, Patient, Family with Pt Consent Problem Text: Thickening of the ma of the hypopharynx and esophagus on CT. ENT was consulted. Patient is awaiting cookie swallow study, and it was recommended that he be nothing by mouth until then. Patient does not want to start tube feeds, although he is rather cachectic. CT showed thickening of the larynx and esophagus. Sputum culture was positive for yeast. Started patient empirically on treatment for candidal esophagitis, as it could have this appearance on imaging and patient is having odynophasia. - Failed Swallow study - Nothing by mouth due to aspiration risk. - Nystatin swish and swallow for an attempted empiric treatment of odynophagia/ Diflucan - Follow up ENT recommendations - Family meeting to review options: opted for PEG tube. Concerns regarding assistance with TF at home on discharge. 01/01: PEG tube placed. Family states there is someone at home who will be able to do the patient's tube feeds. No operative note available yet when patient seen this afternoon. 01/02/2017: Has started TF, slow rate. Tolerating well at this time. (2) Mass of lung Status: Acute Discussed With: Nurse, Patient, Family with Pt Consent Problem Specific Plan: Consult Specialist, Monitor Clinically Problem Text: Biopsy was done by Dr. Cox 12/26/16 and pathology results are pending. Chest x-ray showed very small pneumothorax, which has been stable. Patient is not having any shortness of breath or other symptoms. -Pathology results: prelim: adenocarcinoma, sent to [facility] second opinion. See path report. (3) Vomiting Status: Resolved Problem Specific Plan: Monitor Clinically Problem Text: Nausea and vomiting have resolved. Patient is currently nothing by mouth. ENT consulted for laryngeal thickening. Swallow study pending. -Started treatment for possible candidal esophagitis due to odynophagia and yeast on sputum cx 01/01 -- denies vomiting. NPO. PEG tube placed, plan to begin feeds tomorrow. (4) Hypertension Status: Chronic Response to Treatment: Stable Problem Text: I restarted lisinopril, as he was hypertensive this evening, and pressures have been trending a bit higher these last few days. 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 O2 3L. (6) Leukocytosis Status: Acute Problem Specific Plan: Monitor Clinically Problem Text: Etiology of this unclear. Resp panel neg, Blood culture x 1 Neg, x 1 pending, did recently finished course of prednisone. Currently on Zosyn IV. Tmax 100.8. Likely related to neoplastic syndrome. Plan/VTE VTE Prophylaxis Ordered?: Yes (restart anticoagulation; greater than 24 hours from biopsy; likely malignancy places patient at high risk for DVT) Plan/Urinary Catheter Reason for insertion/continuin: Acute obstruct/retention Plan Attending note: I saw and evaluated the patient, and I agree with the plan of care as discussed and document above. However, pt has completed course of abx and diflucan. Discontinued these medications. Pt awaiting titration of tube feeds. Rob Campbell MD VS, I&O, 24H, Fishbone Vital Signs/I&O Vital Signs Date Time Temp Pulse Resp B/P Pulse Ox O2 Delivery O2 Flow Rate FiO2 4/14/17 06:00 98.9 80 20 137/91 93 Nasal Cannula 2.0 I&O- Last 24 Hours up to 6 AM 01/02/17 06:00 Intake Total 990 ml Output Total 1595 ml Balance -605 ml Laboratory Data 24H LABS Laboratory Tests 2 01/02/17 06:05: Blood Urea Nitrogen 6L, Creatinine 0.82, Sodium Level 142, Potassium Level 3.8, Chloride Level 107, Carbon Dioxide Level 28, Calcium Level 8.3L, Aspartate Amino Transf (AST/SGOT) 25, Alanine Aminotransferase (ALT/SGPT) 27, Alkaline Phosphatase 65, Total Bilirubin 0.6, Total Protein 5.6L, Albumin 2.6L, Albumin/ Globulin Ratio 0.87L, Anion Gap 7L, White Blood Count 7.7, Red Blood Count 4.05L , Hemoglobin 11.9L, Hematocrit 36.9L, Mean Corpuscular Volume 91.1, Mean Corpuscular Hemoglobin 29.3, Mean Corpuscular Hemoglobin Concent 32.2, Red Cell Distribution Width 13.8, Platelet Count 175, Neutrophils (%) (Auto) 73.8H, Lymphocytes (%) (Auto) 12.8L, Monocytes (%) (Auto) 5.6H, Eosinophils (%) (Auto) 4.6H, Basophils (%) (Auto) 0.6, Neutrophils # (Auto) 5.7, Lymphocytes # (Auto) 1.2L, Monocytes # (Auto) 0.4, Eosinophils # (Auto) 0.4, Basophils # (Auto) 0.0, Glomerular Filtration Rate > 60.0, Large Unclassified Cells # 0.2, Large Unclassified Cells % 2.5 CBC/BMP Laboratory Tests 01/02/17 06:05 Calcium Level 8.3 L, Aspartate Amino Transf (AST/SGOT) 25, Alanine Aminotransferase (ALT/SGPT) 27, Alkaline Phosphatase 65, Total Bilirubin 0.6, Total Protein 5.6 L, Albumin 2.6 L, Red Blood Count 4.05 L, Mean Corpuscular Volume 91.1, Mean Corpuscular Hemoglobin 29.3, Mean Corpuscular Hemoglobin Concent 32.2, Red Cell Distribution Width 13.8, Neutrophils (%) (Auto) 73.8 H, Lymphocytes (%) (Auto) 12.8 L, Monocytes (%) (Auto) 5.6 H, Eosinophils (%) (Auto ) 4.6 H, Basophils (%) (Auto) 0.6, Neutrophils # (Auto) 5.7, Lymphocytes # (Auto ) 1.2 L, Monocytes # (Auto) 0.4, Eosinophils # (Auto) 0.4, Basophils # (Auto) 0.0 Microbiology Microbiology 12/25/16 Blood Culture - Final, Complete NO GROWTH AFTER 5 DAYS 12/25/16 Blood Culture - Final, Complete Staphylococcus Epidermidis Corynebacterium Sp. Not Jk 12/26/16 Gram Stain - Final, Complete 12/26/16 Surgical Biopsy Culture - Final, Complete 12/25/16 MRSA Screen - Final, Complete 12/25/16 Respiratory Virus Panel (PCR) ([facility]) - Final, Complete 12/25/16 Gram Stain - Final, Complete 12/25/16 Sputum Culture - Final, Complete Klebsiella Pneumoniae Yeast Like Organism Nimisha Tripp Jan 02, 2017 07:30 ROB CAMPBELL MD Jan 02, 2017 17:14
[2017-01-02] MEDS ORDERED: LISINOPRIL 5 MG TAB PEG SCH (09:00)
[2017-01-02] MEDS: NYSTATIN 500,000 U/5 ML SUSP UDC SS SCH (09:17)
[2017-01-02] MEDS: PANTOPRAZOLE 40MG INJ (PROTONIX) (C9113) IV SCH ×2 (09:17→20:27)
[2017-01-02] MEDS: LISINOPRIL 5 MG TAB PEG SCH (09:17)
[2017-01-02] MEDS: FLUCONAZOLE 400 MG in APPROPRIATE DILUENT 1 EA IV SCH (09:20)
[2017-01-02 10:00] VITALS: BP 172/74
[2017-01-02] MEDS ORDERED: BISACODYL 10 MG SUPP PR PRN (13:45)
[2017-01-02 14:00] VITALS: BP 169/83
[2017-01-02 18:00] VITALS: BP 156/78
[2017-01-02 22:00] VITALS: BP 167/73
[2017-01-02] MEDS: ACETAMINOPHEN 650 MG SUPP PR PRN (22:27)
[2017-01-03] MEDS: SUCRALFATE SUSP 1GM/10ML UD GT SCH ×4 (00:40→17:35)
[2017-01-03] MEDS: IPRATROPIUM 0.02% SOLN 0.5MG/2.5 ML NEB INH SCH ×6 (03:44→23:25)
[2017-01-03] MEDS: LEVALBUTEROL 1.25 MG/0.5 ML CONCENTRATE NEB INH SCH ×6 (03:44→23:25)
[2017-01-03 06:00] VITALS: BP 145/64
[2017-01-03 06:30] LABS: BASO % 0.4 % (0.0-1.0); EOS # 0.2 K/mm3 (0.0-0.50); EOS % 3.4 % (0.0-3.0); LARGE UNSTAINED CELL # 0.2 K/mm3 (0.0-0.4); LARGE UNSTAINED CELL % 3.4 % (0.0-4.0); LYMPH # 1.1 K/mm3 (1.5-4.5); LYMPH % 17.3 % (24.0-44.0); MEAN CORPUSCULAR HEMOGLOBIN 29.2 pg (27.0-33.0); MEAN CORPUSCULAR HGB CONC 32.1 g/dl (32.0-36.5); MEAN CORPUSCULAR VOLUME 91.1 fl (80.0-96.0); MONO # 0.5 K/mm3 (0.0-0.8); MONO % 8.2 % (0.0-5.0); NEUTROPHILS # 4.4 K/mm3 (1.8-7.7); NEUTROPHILS % 67.2 % (36.0-66.0); PLATELET COUNT, AUTOMATED 161 k/mm3 (150-450); RED CELL DISTRIBUTION WIDTH 13.9 % (11.5-14.5); WHITE BLOOD COUNT 6.6 K/mm3 (4.0-10.0)
[2017-01-03 06:43] LABS: ALKALINE PHOSPHATASE 69 U/L (45-117); ALT/SGPT 23 U/L (12-78); ANION GAP 4 MEQ/L (8-16); AST/SGOT 19 U/L (15-37); BLOOD UREA NITROGEN 8 MG/DL (7-18); CALCIUM LEVEL 8.1 MG/DL (8.8-10.2); CARBON DIOXIDE LEVEL 31 MEQ/L (21-32); CHLORIDE LEVEL 107 MEQ/L (98-107); CREATININE FOR GFR 0.65 MG/DL (0.70-1.30); GLOMERULAR FILTRATION RATE > 60.0 (>35); GLUCOSE, FASTING 134 MG/DL (83-110); POTASSIUM SERUM 3.3 MEQ/L (3.5-5.1); SODIUM LEVEL 142 MEQ/L (136-145)
[2017-01-03 06:44] LABS: ALBUMIN 2.3 GM/DL (3.2-5.2); ALBUMIN/GLOBULIN RATIO 0.74 (1.00-1.93); BILIRUBIN,TOTAL 0.4 MG/DL (0.2-1.0); TOTAL PROTEIN 5.4 GM/DL (6.4-8.2)
[2017-01-03 07:48] VITALS: O2SAT 95
[2017-01-03] MEDS: SIMETHICONE 80 MG CHEW TAB PEG PRN (09:42)
[2017-01-03] MEDS: LISINOPRIL 5 MG TAB PEG SCH (09:43)
[2017-01-03] MEDS: ACETAMINOPHEN TAB 650MG DOSE (2X325MG) PEG PRN (09:43)
[2017-01-03] MEDS: PANTOPRAZOLE 40MG INJ (PROTONIX) (C9113) IV SCH ×2 (09:43→20:09)
[2017-01-03 14:00] VITALS: BP 148/67
[2017-01-03] MEDS ORDERED: POTASSIUM CHLORIDE 10% LIQ 20 MEQ/15 ML UDC GT ONE (18:00)
[2017-01-03 22:00] VITALS: BP 142/66
[2017-01-04] MEDS: SUCRALFATE SUSP 1GM/10ML UD GT SCH ×4 (00:33→18:01)
[2017-01-04] MEDS: LEVALBUTEROL 1.25 MG/0.5 ML CONCENTRATE NEB INH SCH ×6 (03:21→23:54)
[2017-01-04] MEDS: IPRATROPIUM 0.02% SOLN 0.5MG/2.5 ML NEB INH SCH ×6 (03:21→23:54)
[2017-01-04 06:00] VITALS: BP 175/79
[2017-01-04 06:26] LABS: BASO % 0.5 % (0.0-1.0); EOS # 0.3 K/mm3 (0.0-0.50); EOS % 2.5 % (0.0-3.0); LARGE UNSTAINED CELL # 0.3 K/mm3 (0.0-0.4); LARGE UNSTAINED CELL % 2.2 % (0.0-4.0); LYMPH # 1.5 K/mm3 (1.5-4.5); LYMPH % 10.8 % (24.0-44.0); MEAN CORPUSCULAR HEMOGLOBIN 28.9 pg (27.0-33.0); MEAN CORPUSCULAR VOLUME 90.5 fl (80.0-96.0); MONO # 0.6 K/mm3 (0.0-0.8); NEUTROPHILS # 8.9 K/mm3 (1.8-7.7); PLATELET COUNT, AUTOMATED 183 k/mm3 (150-450); WHITE BLOOD COUNT 11.3 K/mm3 (4.0-10.0)
[2017-01-04 06:45] LABS: ALBUMIN 2.5 GM/DL (3.2-5.2); ALBUMIN/GLOBULIN RATIO 0.69 (1.00-1.93); ALKALINE PHOSPHATASE 77 U/L (45-117); ALT/SGPT 26 U/L (12-78); ANION GAP 4 MEQ/L (8-16); AST/SGOT 22 U/L (15-37); BILIRUBIN,TOTAL 0.5 MG/DL (0.2-1.0); BLOOD UREA NITROGEN 13 MG/DL (7-18); CALCIUM LEVEL 8.5 MG/DL (8.8-10.2); CARBON DIOXIDE LEVEL 30 MEQ/L (21-32); CHLORIDE LEVEL 105 MEQ/L (98-107); CREATININE FOR GFR 0.71 MG/DL (0.70-1.30); GLOMERULAR FILTRATION RATE > 60.0 (>35); GLUCOSE, FASTING 118 MG/DL (83-110); POTASSIUM SERUM 4.3 MEQ/L (3.5-5.1); SODIUM LEVEL 139 MEQ/L (136-145); TOTAL PROTEIN 6.1 GM/DL (6.4-8.2)
[2017-01-04] MEDS: PANTOPRAZOLE 40MG INJ (PROTONIX) (C9113) IV SCH ×2 (09:57→20:46)
[2017-01-04] MEDS: LISINOPRIL 5 MG TAB PEG SCH (09:58)
[2017-01-04 14:00] VITALS: BP 146/66
--- NOTE | 2017-01-04 21:05 | IPN ---
DATE: 01/03/2017 SUBJECTIVE: Patient is seen today [facility]. He has started to be fed through his gastrostomy tube and seems to be tolerating it well. This morning he did have some right upper quadrant discomfort but this was relieved after some Tylenol and simethicone. He is not complaining about his swallowing, although he did fail a swallowing evaluation and that is what prompted the gastrostomy. He says his breathing is as usual, short at times. Not having any dyspepsia, not having any abdominal pain at this time, not having any back pain or leg pains. MEDICATIONS: Current medication regimen calls for him to receive Tylenol, simethicone, as-needed medication for bowel care, lisinopril, saliva substitute as needed, pantoprazole, ipratropium and levalbuterol by nebulization, and Zofran. PHYSICAL EXAMINATION: On examination his temperatures 99.9, blood pressure 148/67, pulse 91 and regular, O2 saturation on room air is 97% on three liters nasal cannula. He appears chronically ill. He is in good spirits. There are no neck masses or carotid bruits. Lunds show diminished breath sounds but are clear. Heart has a regular rhythm without murmur click or gallop, mouth and throat are unremarkable. Abdomen is soft and non-tender with out any masses. Bowel sounds are active. Gastrostomy site in not inflammed and G-tube is functioning. There is no edema and no open areas on his feet. DIAGNOSTICS: Today his white count was 6600, hemoglobin was 11.5. His BUN was 8, creatinine 0.65, potassium was down a little bit at 3.3. His fine-needle aspiration from CT-guided biopsy of the right lungs showed adenocarcinoma which was sent out for analysis; apparently it was negative for PD-L1. His last chest x-ray was done on 12/26. ASSESSMENT: 1. Esophageal mass. 2. Dysphagia. 3. Adenocarcinoma of the long. 4. Malnutrition. 5. Hypertension. 6. Chronic obstructive pulmonary disease (COPD). PLAN: The patient will continue on his current medications. Continue with the tube feedings. I think at this time as soon as he is ready for discharge, he can go. The family will need instructions in preparing his tube feedings. He will probably be on intermittent feedings when he goes home, rather than continuous which would involve a pump. He is to be followed by home health agency. He lives in [place] which is in [facility]. Continue to monitor his labs. JOAQUINA
[2017-01-04 22:00] VITALS: BP 127/61
[2017-01-05] MEDS: SUCRALFATE SUSP 1GM/10ML UD GT SCH ×4 (00:19→17:59)
[2017-01-05] MEDS: IPRATROPIUM 0.02% SOLN 0.5MG/2.5 ML NEB INH SCH ×6 (03:21→23:35)
[2017-01-05] MEDS: LEVALBUTEROL 1.25 MG/0.5 ML CONCENTRATE NEB INH SCH ×6 (03:21→23:35)
[2017-01-05 06:00] VITALS: BP 145/65
[2017-01-05 07:02] LABS: BASO # 0.1 K/mm3 (0.0-0.2); BASO % 0.6 % (0.0-1.0); EOS % 11.2 % (0.0-3.0); LARGE UNSTAINED CELL # 0.4 K/mm3 (0.0-0.4); LYMPH # 1.8 K/mm3 (1.5-4.5); LYMPH % 16.8 % (24.0-44.0); MEAN CORPUSCULAR HGB CONC 33.1 g/dl (32.0-36.5); MEAN CORPUSCULAR VOLUME 90.6 fl (80.0-96.0); MONO # 0.6 K/mm3 (0.0-0.8); MONO % 6.4 % (0.0-5.0); NEUTROPHILS # 5.4 K/mm3 (1.8-7.7); PLATELET COUNT, AUTOMATED 172 k/mm3 (150-450); RED CELL DISTRIBUTION WIDTH 13.9 % (11.5-14.5); WHITE BLOOD COUNT 8.9 K/mm3 (4.0-10.0)
[2017-01-05 07:23] LABS: ALBUMIN 2.5 GM/DL (3.2-5.2); ALBUMIN/GLOBULIN RATIO 0.71 (1.00-1.93); ALKALINE PHOSPHATASE 76 U/L (45-117); ALT/SGPT 24 U/L (12-78); ANION GAP 7 MEQ/L (8-16); AST/SGOT 21 U/L (15-37); BILIRUBIN,TOTAL 0.5 MG/DL (0.2-1.0); BLOOD UREA NITROGEN 15 MG/DL (7-18); CALCIUM LEVEL 8.4 MG/DL (8.8-10.2); CARBON DIOXIDE LEVEL 29 MEQ/L (21-32); CHLORIDE LEVEL 105 MEQ/L (98-107); CREATININE FOR GFR 0.63 MG/DL (0.70-1.30); GLOMERULAR FILTRATION RATE > 60.0 (>35); GLUCOSE, FASTING 138 MG/DL (83-110); POTASSIUM SERUM 3.8 MEQ/L (3.5-5.1); SODIUM LEVEL 141 MEQ/L (136-145)
[2017-01-05] MEDS: PANTOPRAZOLE 40MG INJ (PROTONIX) (C9113) IV SCH (08:19)
[2017-01-05] MEDS: LISINOPRIL 5 MG TAB PEG SCH (08:19)
[2017-01-05] MEDS: SIMETHICONE 80 MG CHEW TAB PEG PRN (08:20)
--- NOTE | 2017-01-05 09:49 | IPNPDOC ---
Subjective Date Seen The patient was seen on 01/05/17. Subjective Chief Complaint/HPI The patient is a 81-year-old male admitted with a reason for visit of Esophageal Mass. Events since last encounter Has had fever over the weekend. t max 100.5. + cough, otherwise denies c/o. Tolerating TF via continuous pump well. Constitutional: Denies: Chills, Fever, Night Sweats ENT: Denies: Dysphagia, Ear Pain, Head Aches Skin: Denies: Breakdown, Lesions, Rash Pulmonary: Reports: Cough, Denies: Dyspnea Cardiovascular: Denies: Chest Pain, Lt Headedness, Orthopnea, Palpitations, Paroxysmal Noc. Dyspnea Gastrointestinal: Denies: Abdominal Pain, Constipation, Diarrhea, Nausea, Vomiting Psych: Reports: Mood Normal, Denies: Depression, Memory Issues Objective Physical Examination General Exam: Positive: Alert, No Acute Distress ENT Exam: Positive: Mucous membr. moist/pink Neck Exam: Positive: Other (no Virchov node noted in supraclavicular notch), Supple Chest Exam: Positive: Clear to auscultation, Normal air movement Heart Exam: Positive: Normal S1, Normal S2, Rate Normal Abdomen Exam: Positive: Normal bowel sounds, Soft, Negative: Tenderness Extremity Exam: Negative: Edema Skin Exam: Positive: Nl turgor and temperature Psych Exam: Positive: Mental status NL, Mood NL Assessment /Plan Problems (1) Esophageal mass Status: Acute Discussed With: Nurse, Patient, Family with Pt Consent Problem Text: Thickening of the ma of the hypopharynx and esophagus on CT. ENT was consulted. Patient is awaiting cookie swallow study, and it was recommended that he be nothing by mouth until then. Patient does not want to start tube feeds, although he is rather cachectic. CT showed thickening of the larynx and esophagus. Sputum culture was positive for yeast. Started patient empirically on treatment for candidal esophagitis, as it could have this appearance on imaging and patient is having odynophasia. - Failed Swallow study - Nothing by mouth due to aspiration risk. - Nystatin swish and swallow for an attempted empiric treatment of odynophagia/ Diflucan - Follow up ENT recommendations - Family meeting to review options: opted for PEG tube. Concerns regarding assistance with TF at home on discharge. 01/01: PEG tube placed. Family states there is someone at home who will be able to do the patient's tube feeds. No operative note available yet when patient seen this afternoon. 01/02/2017: Has started TF, slow rate. Tolerating well at this time. 01/05/2017: tolerating TF continuous infusion. (2) Mass of lung Status: Acute Discussed With: Nurse, Patient, Family with Pt Consent Problem Specific Plan: Consult Specialist, Monitor Clinically Problem Text: Biopsy was done by Dr. Cox 12/26/16 and pathology results are pending. Chest x-ray showed very small pneumothorax, which has been stable. Patient is not having any shortness of breath or other symptoms. -Pathology results: prelim: adenocarcinoma, sent to [facility] second opinion. See path report. (3) Hypertension Status: Chronic Response to Treatment: Stable Problem Text: Continue lisinopril. 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 O2 3L. (5) Leukocytosis Status: Resolved Problem Specific Plan: Monitor Clinically Problem Text: Etiology of this unclear. Resp panel neg, Blood culture x 1 Neg, x 1 pending, did recently finished course of prednisone. Currently on Zosyn IV. Tmax 100.8. Likely related to neoplastic syndrome. (6) Vomiting Status: Resolved Problem Specific Plan: Monitor Clinically Problem Text: Nausea and vomiting have resolved. Patient is currently nothing by mouth. ENT consulted for laryngeal thickening. Swallow study pending. -Started treatment for possible candidal esophagitis due to odynophagia and yeast on sputum cx 01/01 -- denies vomiting. NPO. PEG tube placed, plan to begin feeds tomorrow. (7) Fever Status: Acute Problem Text: eval CXR today. WBC stable. monitor. Plan/VTE VTE Prophylaxis Ordered?: Yes (restart anticoagulation; greater than 24 hours from biopsy; likely malignancy places patient at high risk for DVT) Plan/Urinary Catheter Reason for insertion/continuin: Acute obstruct/retention Plan Family Medicine Attending Note: I saw and examined Mr. Marino today; I d/w Nimisha Tripp NP and I agree with her note. She reported to me that she discussed finding of pneumoperitoneum seen on CXR with Gen Surg - they did not recommend intervention or workup unless clinically indicated. His abdomen remains soft and nontender this afternoon, and he has been afebrile today. He had teaching regarding his tube feeds today and bolus feeds were recommended - order placed for this. Per his nurse, he cannot be discharged until or Thursday per Security Installer because Home Care cannot see him until Thursday - this needs to be discussed and confirmed with the Security Installer tomorrow. (KES) VS, I&O, 24H, Fishbone Vital Signs/I&O Vital Signs Date Time Temp Pulse Resp B/P Pulse Ox O2 Delivery O2 Flow Rate FiO2 01/05/17 08:19 145/65 01/05/17 06:00 99.5 98 18 96 Room Air 01/04/17 09:36 2.0 I&O- Last 24 Hours up to 6 AM 01/05/17 06:00 Intake Total 985 ml Output Total 1100 ml Balance -115 ml Laboratory Data 24H LABS Laboratory Tests 2 01/05/17 06:43: Blood Urea Nitrogen 15, Creatinine 0.63L, Sodium Level 141, Potassium Level 3.8 , Chloride Level 105, Carbon Dioxide Level 29, Calcium Level 8.4L, Aspartate Amino Transf (AST/SGOT) 21, Alanine Aminotransferase (ALT/SGPT) 24, Alkaline Phosphatase 76, Total Bilirubin 0.5, Total Protein 6.0L, Albumin 2.5L, Albumin/ Globulin Ratio 0.71L, Anion Gap 7L, White Blood Count 8.9, Red Blood Count 4.13L , Hemoglobin 12.4L, Hematocrit 37.4L, Mean Corpuscular Volume 90.6, Mean Corpuscular Hemoglobin 30.0, Mean Corpuscular Hemoglobin Concent 33.1, Red Cell Distribution Width 13.9, Platelet Count 172, Neutrophils (%) (Auto) 61.0, Lymphocytes (%) (Auto) 16.8L, Monocytes (%) (Auto) 6.4H, Eosinophils (%) (Auto) 11.2H, Basophils (%) (Auto) 0.6, Neutrophils # (Auto) 5.4, Lymphocytes # (Auto) 1.8, Monocytes # (Auto) 0.6, Eosinophils # (Auto) 1.0H, Basophils # (Auto) 0.1, Glomerular Filtration Rate > 60.0, Large Unclassified Cells # 0.4, Large Unclassified Cells % 4.0 CBC/BMP Laboratory Tests 01/05/17 06:43 Calcium Level 8.4 L, Aspartate Amino Transf (AST/SGOT) 21, Alanine Aminotransferase (ALT/SGPT) 24, Alkaline Phosphatase 76, Total Bilirubin 0.5, Total Protein 6.0 L, Albumin 2.5 L, Red Blood Count 4.13 L, Mean Corpuscular Volume 90.6, Mean Corpuscular Hemoglobin 30.0, Mean Corpuscular Hemoglobin Concent 33.1, Red Cell Distribution Width 13.9, Neutrophils (%) (Auto) 61.0, Lymphocytes (%) (Auto) 16.8 L, Monocytes (%) (Auto) 6.4 H, Eosinophils (%) (Auto ) 11.2 H, Basophils (%) (Auto) 0.6, Neutrophils # (Auto) 5.4, Lymphocytes # ( Auto) 1.8, Monocytes # (Auto) 0.6, Eosinophils # (Auto) 1.0 H, Basophils # (Auto ) 0.1 Microbiology Microbiology 01/02/17 Blood Culture - Preliminary, Resulted No Growth after 48 hours. All Specime... 01/02/17 Blood Culture - Preliminary, Resulted No Growth after 48 hours. All Specime... 12/26/16 Gram Stain - Final, Complete 12/26/16 Surgical Biopsy Culture - Final, Complete Nimisha Tripp Jan 05, 2017 09:49 DALJIT MERCEDES MD Jan 05, 2017 17:01
--- NOTE | 2017-01-05 10:44 | REP ---
CHEST, TWO VIEWS: HISTORY: Fever. COMPARISON: 12/26/2016. An increase in interstitial markings is present in the lungs. Pleural thickening is present on the left. A mass is present in the right upper lobe unchanged compared to the previous study. There has been resolution of the previously noted small right apical pneumothorax. The cardiac silhouette is enlarged. The pulmonary vasculature is normal in appearance. There is an old compression fracture of the mid thoracic vertebral body. Pneumoperitoneum is present. IMPRESSION: 1. COPD. 2. Right upper lobe mass unchanged compared to the previous study. 3. There has been resolution of the previously noted small right pneumothorax. 4. There is pneumoperitoneum. Results were discussed with Talia Tripp at 10:20 a.m. this date. Signed by Nimesh Trevino MD 01/05/2017 10:52 A
--- NOTE | 2017-01-05 11:22 | IPN ---
DATE: 01/04/2017 Resident is seen today on [facility]. He has been spitting up some phlegm. Overnight, he did have a temperature 101.5. Early this morning it was still 100.9. He is not having any shortness of breath. He is expectorating some phlegm intermittently. He is not having any abdominal pain. It does sound like he is having any nausea. No dysuria. CURRENT MEDICATIONS: - Sucralfate 1 gram every 6 hours - Prinivil 5 mg daily - pantoprazole 40 mg IV twice a day - Atrovent with Xopenex every 4 hours and as needed - Zofran 4 mg as needed PHYSICAL EXAMINATION: On examination, current temperature is 99.3, blood pressure 146/66, pulse 92 and regular. Oxygen saturation 95% on room air. He is awake and alert, not in any distress. Mouth and throat appear unremarkable. His lungs sound clear. Heart has regular rhythm. I am not hearing any murmur, click or gallop. Abdomen is soft and nontender. G tube site is not tender or inflamed. There is no edema. He did spit up a little bit of greenish phlegm. Labs done today showed hemoglobin of 12.5, white count of 11,300, BUN 13, creatinine 0.7, potassium 4.3. He is no longer on any antifungal or antibacterial antiinfectives. ASSESSMENT: 1. Dysphagia and abnormal esophageal CT. 2. Lung mass, adenocarcinoma on current evaluation. 3. Status post insertion of percutaneous endoscopic gastrostomy (PEG) tube. 4. Hypertension. 5. Chronic obstructive pulmonary disease (COPD). 6. Fever. PLAN: I am going to continue on his current medications. We will order a sputum culture and sensitivity. Continue his tube feedings. My understanding is that tomorrow there will be some education to the patient and his family regarding tube feeding, particularly using a syringe for intermittent feedings. Certainly , when he is done with that and comfortable with it at home, he could be discharged to home with followup. I do not think that he is a candidate for any aggressive treatment of his cancer but this remains to be seen. I am not sure that this particular issue has been broached with him other than he does have cancer. [facility]ITAL[facility]
[2017-01-05 14:00] VITALS: BP 150/69
[2017-01-05] MEDS: LANSOPRAZOLE SUSPENSION 30 MG/10 ML ORAL SYRINGE (FIRST-LANSOPRAZOLE) GT SCH (20:34)
[2017-01-05 22:00] VITALS: BP 136/62
[2017-01-06] MEDS: SUCRALFATE SUSP 1GM/10ML UD GT SCH ×4 (00:10→17:48)
[2017-01-06] MEDS: LEVALBUTEROL 1.25 MG/0.5 ML CONCENTRATE NEB INH SCH ×6 (03:43→23:58)
[2017-01-06] MEDS: IPRATROPIUM 0.02% SOLN 0.5MG/2.5 ML NEB INH SCH ×6 (03:43→23:58)
[2017-01-06 06:00] VITALS: BP 132/62
[2017-01-06] MEDS: LANSOPRAZOLE SUSPENSION 30 MG/10 ML ORAL SYRINGE (FIRST-LANSOPRAZOLE) GT SCH ×2 (08:15→21:42)
[2017-01-06] MEDS: LISINOPRIL 5 MG TAB PEG SCH (08:17)
--- NOTE | 2017-01-06 08:51 | IPNPDOC ---
Subjective Date Seen The patient was seen on 01/06/17. Subjective Chief Complaint/HPI The patient is a 81-year-old male admitted with a reason for visit of Esophageal Mass. Events since last encounter Has started bolus TF with excellent tolerability so far. Denies c/o Constitutional: Denies: Chills, Fever, Night Sweats Skin: Denies: Breakdown, Lesions, Rash Pulmonary: Denies: Cough, Dyspnea Cardiovascular: Denies: Chest Pain, Lt Headedness, Orthopnea, Palpitations, Paroxysmal Noc. Dyspnea Gastrointestinal: Denies: Abdominal Pain, Constipation, Diarrhea, Nausea, Vomiting Genitourinary: Denies: Dysuria, Frequency, Incontinence, Retention Objective Physical Examination General Exam: Positive: Alert, No Acute Distress ENT Exam: Positive: Mucous membr. moist/pink Neck Exam: Positive: Other (no Virchov node noted in supraclavicular notch), Supple Chest Exam: Positive: Clear to auscultation, Normal air movement Heart Exam: Positive: Normal S1, Normal S2, Rate Normal Abdomen Exam: Positive: Normal bowel sounds, Soft, Negative: Tenderness Extremity Exam: Negative: Edema Skin Exam: Positive: Nl turgor and temperature Psych Exam: Positive: Mental status NL, Mood NL Assessment /Plan Problems (1) Esophageal mass Status: Acute Discussed With: Nurse, Patient, Family with Pt Consent Problem Text: Thickening of the ma of the hypopharynx and esophagus on CT. ENT was consulted. Patient is awaiting cookie swallow study, and it was recommended that he be nothing by mouth until then. Patient does not want to start tube feeds, although he is rather cachectic. CT showed thickening of the larynx and esophagus. Sputum culture was positive for yeast. Started patient empirically on treatment for candidal esophagitis, as it could have this appearance on imaging and patient is having odynophasia. - Failed Swallow study - Nothing by mouth due to aspiration risk. - Nystatin swish and swallow for an attempted empiric treatment of odynophagia/ Diflucan - Follow up ENT recommendations - Family meeting to review options: opted for PEG tube. Concerns regarding assistance with TF at home on discharge. 01/01: PEG tube placed. Family states there is someone at home who will be able to do the patient's tube feeds. No operative note available yet when patient seen this afternoon. 01/02/2017: Has started TF, slow rate. Tolerating well at this time. 01/05/2017: tolerating TF continuous infusion. 01/06/2017: Bolus TF started. tolerating well. (2) Mass of lung Status: Acute Discussed With: Nurse, Patient, Family with Pt Consent Problem Specific Plan: Consult Specialist, Monitor Clinically Problem Text: Biopsy was done by Dr. Cox 12/26/16 and pathology results are pending. Chest x-ray showed very small pneumothorax, which has been stable. Patient is not having any shortness of breath or other symptoms. -Pathology results: prelim: adenocarcinoma, sent to [facility] second opinion. See path report. (3) Hypertension Status: Chronic Response to Treatment: Stable Problem Text: Continue lisinopril. 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 O2 3L. (5) Leukocytosis Status: Resolved Problem Specific Plan: Monitor Clinically Problem Text: Etiology of this unclear. Resp panel neg, Blood culture x 1 Neg, x 1 pending, did recently finished course of prednisone. Currently on Zosyn IV. Tmax 100.8. Likely related to neoplastic syndrome. (6) Vomiting Status: Resolved Problem Specific Plan: Monitor Clinically Problem Text: Nausea and vomiting have resolved. Patient is currently nothing by mouth. ENT consulted for laryngeal thickening. Swallow study pending. -Started treatment for possible candidal esophagitis due to odynophagia and yeast on sputum cx 01/01 -- denies vomiting. NPO. PEG tube placed, plan to begin feeds tomorrow. (7) Fever Status: Acute Problem Text: eval CXR today. WBC stable. monitor. (8) Esophageal ulceration Status: Acute Problem Text: noted on EGD. PPI Bid via peg tube. Plan/VTE VTE Prophylaxis Ordered?: Yes (restart anticoagulation; greater than 24 hours from biopsy; likely malignancy places patient at high risk for DVT) Plan/Urinary Catheter Reason for insertion/continuin: Acute obstruct/retention Plan Attending note: I saw and evaluated the patient, and agree with plan of care as discussed and documented above by Radha Tripp. Will need to check with patient family services regarding the planned to keep patient elevated for tube feeds. If they plan for hospital bed, he will need a prescription sent to [facility]. However, unclear if his insurance would cover for this. Patient also needs prescription for four-wheel walker with a chair sent to [facility] as well on the day of discharge. Rob Campbell MD Disposition DC home Thursday01/09/2017 with Home Care Services starting on 01/10/2017. VS, I&O, 24H, Fishbone Vital Signs/I&O Vital Signs Date Time Temp Pulse Resp B/P Pulse Ox O2 Delivery O2 Flow Rate FiO2 01/06/17 08:17 144/65 01/06/17 06:00 98.9 98 20 95 01/05/17 14:00 Room Air 01/04/17 09:36 2.0 I&O- Last 24 Hours up to 6 AM 01/06/17 05:59 Intake Total 997 ml Output Total 550 ml Balance 447 ml Laboratory Data Microbiology Microbiology 01/02/17 Blood Culture - Preliminary, Resulted No Growth after 72 hours. All specime... 01/02/17 Blood Culture - Preliminary, Resulted No Growth after 72 hours. All specime... Nimisha Tripp Jan 06, 2017 08:51 ROB CAMPBELL MD Jan 06, 2017 16:48
[2017-01-06] MEDS: NYSTATIN 500,000 U/5 ML SUSP UDC PO SCH ×4 (09:49→21:43)
[2017-01-06 14:00] VITALS: BP 143/67
[2017-01-06 22:00] VITALS: BP 106/69
[2017-01-07] MEDS: SUCRALFATE SUSP 1GM/10ML UD GT SCH ×4 (00:28→17:42)
[2017-01-07] MEDS: LEVALBUTEROL 1.25 MG/0.5 ML CONCENTRATE NEB INH SCH ×6 (03:30→23:21)
[2017-01-07] MEDS: IPRATROPIUM 0.02% SOLN 0.5MG/2.5 ML NEB INH SCH ×6 (03:30→23:21)
[2017-01-07] MEDS: ACETAMINOPHEN TAB 650MG DOSE (2X325MG) PEG PRN (03:51)
[2017-01-07] MEDS: SIMETHICONE 80 MG CHEW TAB PEG PRN (03:51)
[2017-01-07 06:00] VITALS: BP 128/61
[2017-01-07] MEDS: LANSOPRAZOLE SUSPENSION 30 MG/10 ML ORAL SYRINGE (FIRST-LANSOPRAZOLE) GT SCH ×2 (09:58→22:05)
[2017-01-07] MEDS: LISINOPRIL 5 MG TAB PEG SCH (09:58)
[2017-01-07] MEDS: NYSTATIN 500,000 U/5 ML SUSP UDC PO SCH ×4 (09:58→22:05)
--- NOTE | 2017-01-07 10:03 | IPNPDOC ---
Subjective Date Seen The patient was seen on 01/07/17. Subjective Chief Complaint/HPI Pt this morning without new concerns. He is hopeful that he will be able to manage his tube feedings as home. He does have family that could help. He is eager to get back home. Nursing will cont to work with him on the feedings, so far no residual has been noted. General: Denies: Fatigue Constitutional: Denies: Chills, Fever Pulmonary: Denies: Cough, Dyspnea Cardiovascular: Denies: Chest Pain, Palpitations Gastrointestinal: Denies: Diarrhea, Nausea, Vomiting Neurological: Reports: Weakness Psych: Denies: Mood Normal Objective Physical Examination General Exam: Positive: Alert, No Acute Distress ENT Exam: Positive: Mucous membr. moist/pink Neck Exam: Positive: Other, Supple Chest Exam: Positive: Clear to auscultation, Normal air movement Heart Exam: Positive: Normal S1, Normal S2, Rate Normal Abdomen Exam: Positive: Normal bowel sounds, Soft Extremity Exam: Negative: Edema Skin Exam: Positive: Nl turgor and temperature Psych Exam: Positive: Mental status NL, Mood NL Assessment /Plan Problems (1) Esophageal mass Status: Acute Discussed With: Nurse, Patient, Family with Pt Consent Problem Text: Thickening of the ma of the hypopharynx and esophagus on CT. ENT was consulted. Patient is awaiting cookie swallow study, and it was recommended that he be nothing by mouth until then. Patient does not want to start tube feeds, although he is rather cachectic. CT showed thickening of the larynx and esophagus. Sputum culture was positive for yeast. Started patient empirically on treatment for candidal esophagitis, as it could have this appearance on imaging and patient is having odynophasia. - Failed Swallow study - Nothing by mouth due to aspiration risk. - Nystatin swish and swallow for an attempted empiric treatment of odynophagia/ Diflucan - Follow up ENT recommendations - Family meeting to review options: opted for PEG tube. Concerns regarding assistance with TF at home on discharge. 01/01: PEG tube placed. Family states there is someone at home who will be able to do the patient's tube feeds. No operative note available yet when patient seen this afternoon. 01/02/2017: Has started TF, slow rate. Tolerating well at this time. 01/05/2017: tolerating TF continuous infusion. 01/06/2017: Bolus TF started. tolerating well. 01/07 - Tolerating bolus TFs, nursing to work with pt on teaching and self administration. Plan for d/c home Fri/Sat with homecare. (2) Mass of lung Status: Acute Discussed With: Nurse, Patient, Family with Pt Consent Problem Specific Plan: Consult Specialist, Monitor Clinically Problem Text: 01/07 Path from [facility] and [facility] confirm adenocarcinoma of the lung. Resp symptoms stable, will arrange for oncology consult. Biopsy was done by Dr. Cox 12/26/16 and pathology results are pending. Chest x-ray showed very small pneumothorax, which has been stable. Patient is not having any shortness of breath or other symptoms. -Pathology results: prelim: adenocarcinoma, sent to [facility] fro second opinion. See path report. (3) Hypertension Status: Chronic Response to Treatment: Stable Problem Text: Continue lisinopril. 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 (5) Leukocytosis Status: Resolved Problem Specific Plan: Monitor Clinically Problem Text: 01/07 - WBC Nl 01/05. Etiology of this unclear. Resp panel neg, Blood culture x 1 Neg, x 1 pending, did recently finished course of prednisone. Currently on Zosyn IV. Tmax 100.8. Likely related to neoplastic syndrome. (6) Vomiting Status: Resolved Problem Specific Plan: Monitor Clinically Problem Text: Nausea and vomiting have resolved. Patient is currently nothing by mouth. ENT consulted for laryngeal thickening. Swallow study pending. -Started treatment for possible candidal esophagitis due to odynophagia and yeast on sputum cx 01/01 -- denies vomiting. NPO. PEG tube placed, plan to begin feeds tomorrow. (7) Fever Status: Resolved Problem Text: eval CXR today. WBC stable. monitor. (8) Gastric ulcer Status: Acute Problem Text: with bleeding, started on BID PPI via Peg, noted on EGD 01/01/17 Plan/VTE VTE Prophylaxis Ordered?: Yes (restart anticoagulation; greater than 24 hours from biopsy; likely malignancy places patient at high risk for DVT) Plan/Urinary Catheter Reason for insertion/continuin: Acute obstruct/retention Plan Family Medicine Attending Note: I saw and examined Mr. Marino this afternoon; I d/w CATALINA Samson and I agree with her note as documented. I discussed with the patient and his the pathology results from his lung biopsy of adenocarcinoma. He states that he does want to meet with Oncology at some point to discuss treatment of his cancer, and would like to have a PET scan done as an outpatient. As it is now late in the day and he will be here until Thursday, we will plan to consult Medical Oncology in the morning. Plan is to d /c home on Thursday as that is when Home Health can meet him at his house. He declines a hospital bed at this point and states his son is going to buy him a wedge so that he will be at 30 degrees while get tube feeds. (KES) VS, I&O, 24H, Fishbone Vital Signs/I&O Vital Signs Date Time Temp Pulse Resp B/P Pulse Ox O2 Delivery O2 Flow Rate FiO2 01/07/17 06:00 98.5 99 20 128/61 95 01/07/17 05:00 Room Air 01/04/17 09:36 2.0 I&O- Last 24 Hours up to 6 AM 01/07/17 05:59 Intake Total 1330 ml Output Total 525 ml Balance 805 ml Laboratory Data Microbiology Microbiology 01/02/17 Blood Culture - Preliminary, Resulted No Growth after 72 hours. All specime... 01/02/17 Blood Culture - Preliminary, Resulted No Growth after 72 hours. All specime... 01/06/17 Gram Stain - Final, Resulted 01/06/17 Sputum Culture, Resulted Pending ERICKSON DORAN PA-C Jan 07, 2017 10:03 DALJIT MERCEDES MD Jan 07, 2017 15:53
[2017-01-07 14:00] VITALS: BP 141/62
[2017-01-07 22:00] VITALS: BP 113/52
[2017-01-08] MEDS: SUCRALFATE SUSP 1GM/10ML UD GT SCH ×4 (00:34→17:25)
[2017-01-08] MEDS: IPRATROPIUM 0.02% SOLN 0.5MG/2.5 ML NEB INH SCH ×6 (03:24→23:10)
[2017-01-08] MEDS: LEVALBUTEROL 1.25 MG/0.5 ML CONCENTRATE NEB INH SCH ×6 (03:24→23:10)
[2017-01-08 06:00] VITALS: BP 135/60
[2017-01-08 06:30] LABS: MEAN CORPUSCULAR HGB CONC 32.1 g/dl (32.0-36.5); MEAN CORPUSCULAR VOLUME 90.4 fl (80.0-96.0); RED CELL DISTRIBUTION WIDTH 13.6 % (11.5-14.5); WHITE BLOOD COUNT 12.1 K/mm3 (4.0-10.0)
[2017-01-08 06:41] LABS: ALBUMIN 2.4 GM/DL (3.2-5.2); ALBUMIN/GLOBULIN RATIO 0.67 (1.00-1.93); ALKALINE PHOSPHATASE 81 U/L (45-117); ALT/SGPT 21 U/L (12-78); ANION GAP 6 MEQ/L (8-16); AST/SGOT 17 U/L (15-37); BILIRUBIN,TOTAL 0.5 MG/DL (0.2-1.0); BLOOD UREA NITROGEN 22 MG/DL (7-18); CALCIUM LEVEL 8.2 MG/DL (8.8-10.2); CARBON DIOXIDE LEVEL 31 MEQ/L (21-32); CHLORIDE LEVEL 102 MEQ/L (98-107); CREATININE FOR GFR 0.62 MG/DL (0.70-1.30); GLOMERULAR FILTRATION RATE > 60.0 (>35); GLUCOSE, FASTING 101 MG/DL (83-110); POTASSIUM SERUM 4.3 MEQ/L (3.5-5.1); SODIUM LEVEL 139 MEQ/L (136-145)
[2017-01-08] MEDS: NYSTATIN 500,000 U/5 ML SUSP UDC PO SCH ×4 (08:38→21:52)
[2017-01-08] MEDS: LISINOPRIL 5 MG TAB PEG SCH (08:38)
[2017-01-08] MEDS: LANSOPRAZOLE SUSPENSION 30 MG/10 ML ORAL SYRINGE (FIRST-LANSOPRAZOLE) GT SCH ×2 (08:38→21:52)
--- NOTE | 2017-01-08 10:55 | IPNPDOC ---
Subjective Date Seen The patient was seen on 01/08/17. Subjective Chief Complaint/HPI The patient is a 81-year-old male admitted with a reason for visit of Esophageal Mass. Events since last encounter Pt doing well with his feedings. Nursing continues to work with him so he can do this independently at home. He has no new concerns. General: Denies: Fatigue Constitutional: Denies: Chills, Fever Pulmonary: Denies: Cough, Dyspnea Cardiovascular: Denies: Chest Pain, Palpitations Gastrointestinal: Denies: Diarrhea, Nausea, Vomiting Neurological: Reports: Weakness Psych: Reports: Mood Normal Objective Physical Examination General Exam: Positive: Alert (sitting up in bedside chair), No Acute Distress ENT Exam: Positive: Mucous membr. moist/pink Neck Exam: Positive: Other, Supple Chest Exam: Positive: Clear to auscultation, Normal air movement Heart Exam: Positive: Normal S1, Normal S2, Rate Normal Abdomen Exam: Positive: Normal bowel sounds, Soft Extremity Exam: Negative: Edema Skin Exam: Positive: Nl turgor and temperature Psych Exam: Positive: Mental status NL, Mood NL Assessment /Plan Problems (1) Esophageal mass Status: Acute Discussed With: Nurse, Patient, Family with Pt Consent Problem Text: Thickening of the ma of the hypopharynx and esophagus on CT. ENT was consulted. Patient is awaiting cookie swallow study, and it was recommended that he be nothing by mouth until then. Patient does not want to start tube feeds, although he is rather cachectic. CT showed thickening of the larynx and esophagus. Sputum culture was positive for yeast. Started patient empirically on treatment for candidal esophagitis, as it could have this appearance on imaging and patient is having odynophasia. - Failed Swallow study - Nothing by mouth due to aspiration risk. - Nystatin swish and swallow for an attempted empiric treatment of odynophagia/ Diflucan - Follow up ENT recommendations - Family meeting to review options: opted for PEG tube. Concerns regarding assistance with TF at home on discharge. 01/01: PEG tube placed. Family states there is someone at home who will be able to do the patient's tube feeds. No operative note available yet when patient seen this afternoon. 01/02/2017: Has started TF, slow rate. Tolerating well at this time. 01/05/2017: tolerating TF continuous infusion. 01/06/2017: Bolus TF started. tolerating well. 01/07 - Tolerating bolus TFs, nursing to work with pt on teaching and self administration. Plan for d/c home Fri/Sat with homecare. 01/08 Pt continues to do well administering TF, plan for home Sat. (2) Mass of lung Status: Acute Discussed With: Nurse, Patient, Family with Pt Consent Problem Specific Plan: Consult Specialist, Monitor Clinically Problem Text: 01/08 - I discussed option for consult with oncology, will arrange for pt see Oncology as an outpt, outpt referral has already been placed. 01/07 Path from [facility] and [facility] confirm adenocarcinoma of the lung. Resp symptoms stable, will arrange for oncology consult. Biopsy was done by Dr. Cox 12/26/16 and pathology results are pending. Chest x-ray showed very small pneumothorax, which has been stable. Patient is not having any shortness of breath or other symptoms. -Pathology results: prelim: adenocarcinoma, sent to [facility] fro second opinion. See path report. (3) Hypertension Status: Chronic Response to Treatment: Stable Problem Text: Continue lisinopril. 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 (5) Leukocytosis Status: Resolved Problem Specific Plan: Monitor Clinically Problem Text: 01/07 - WBC Nl 01/05. Etiology of this unclear. Resp panel neg, Blood culture x 1 Neg, x 1 pending, did recently finished course of prednisone. Currently on Zosyn IV. Tmax 100.8. Likely related to neoplastic syndrome. (6) Vomiting Status: Resolved Problem Specific Plan: Monitor Clinically Problem Text: Nausea and vomiting have resolved. Patient is currently nothing by mouth. ENT consulted for laryngeal thickening. Swallow study pending. -Started treatment for possible candidal esophagitis due to odynophagia and yeast on sputum cx 01/01 -- denies vomiting. NPO. PEG tube placed, plan to begin feeds tomorrow. (7) Fever Status: Resolved Problem Text: eval CXR today. WBC stable. monitor. (8) Gastric ulcer Status: Acute Problem Text: 01/07 with bleeding, started on BID PPI via Peg, noted on EGD Plan/VTE VTE Prophylaxis Ordered?: Yes (restart anticoagulation; greater than 24 hours from biopsy; likely malignancy places patient at high risk for DVT) Plan/Urinary Catheter Reason for insertion/continuin: Acute obstruct/retention Plan Anticipated Discharge: Home (Sat 01/10, tube feeding supplies Rx provided 01/08, homecare arrangements made.) Family Medicine Attending Note: Patient seen and examined; I d/w Erickson Doran and I agree with her note as above. Patient offers no complaints today. Outpatient referral to Medical Oncology placed. Plan for d/c home Thursday. ( KES) VS, I&O, 24H, Fishbone Vital Signs/I&O Vital Signs Date Time Temp Pulse Resp B/P Pulse Ox O2 Delivery O2 Flow Rate FiO2 01/08/17 07:30 Room Air 01/08/17 06:00 98.8 93 18 135/60 92 01/04/17 09:36 2.0 I&O- Last 24 Hours up to 6 AM 01/08/17 05:59 Intake Total 530 ml Output Total 1325 ml Balance -795 ml Laboratory Data 24H LABS Laboratory Tests 2 01/08/17 06:00: Blood Urea Nitrogen 22H, Creatinine 0.62L, Sodium Level 139, Potassium Level 4.3 , Chloride Level 102, Carbon Dioxide Level 31, Calcium Level 8.2L, Aspartate Amino Transf (AST/SGOT) 17, Alanine Aminotransferase (ALT/SGPT) 21, Alkaline Phosphatase 81, Total Bilirubin 0.5, Total Protein 6.0L, Albumin 2.4L, Albumin/ Globulin Ratio 0.67L, Anion Gap 6L, Glomerular Filtration Rate > 60.0 CBC/BMP Laboratory Tests 01/08/17 06:00 Calcium Level 8.2 L, Aspartate Amino Transf (AST/SGOT) 17, Alanine Aminotransferase (ALT/SGPT) 21, Alkaline Phosphatase 81, Total Bilirubin 0.5, Total Protein 6.0 L, Albumin 2.4 L, Red Blood Count 3.99 L, Mean Corpuscular Volume 90.4, Mean Corpuscular Hemoglobin 29.0, Mean Corpuscular Hemoglobin Concent 32.1, Red Cell Distribution Width 13.6 Microbiology Microbiology 01/02/17 Blood Culture - Final, Complete NO GROWTH AFTER 5 DAYS 01/02/17 Blood Culture - Final, Complete NO GROWTH AFTER 5 DAYS 01/06/17 Gram Stain - Final, Complete 01/06/17 Sputum Culture - Final, Complete Klebsiella Pneumoniae ERICKSON DORAN PA-C Jan 08, 2017 10:55 DALJIT MERCEDES MD Jan 08, 2017 14:45
[2017-01-08 14:00] VITALS: BP 131/58
[2017-01-08 22:00] VITALS: BP 134/61
[2017-01-09] MEDS: SUCRALFATE SUSP 1GM/10ML UD GT SCH ×4 (00:31→18:02)
[2017-01-09] MEDS: IPRATROPIUM 0.02% SOLN 0.5MG/2.5 ML NEB INH SCH ×6 (03:34→23:58)
[2017-01-09] MEDS: LEVALBUTEROL 1.25 MG/0.5 ML CONCENTRATE NEB INH SCH ×6 (03:34→23:57)
[2017-01-09 06:00] VITALS: BP 140/65
[2017-01-09] MEDS: NYSTATIN 500,000 U/5 ML SUSP UDC PO SCH ×4 (09:29→20:09)
[2017-01-09] MEDS: LISINOPRIL 5 MG TAB PEG SCH (09:29)
[2017-01-09] MEDS: LANSOPRAZOLE SUSPENSION 30 MG/10 ML ORAL SYRINGE (FIRST-LANSOPRAZOLE) GT SCH ×2 (09:29→20:09)
--- NOTE | 2017-01-09 10:23 | IPNPDOC ---
Subjective Date Seen The patient was seen on 01/09/17. Subjective Chief Complaint/HPI The patient is a 81-year-old male admitted with a reason for visit of Esophageal Mass. Events since last encounter Pt this morning without new concerns. He is doing well with administering his own tube feeds. He is eager to get home. Nursing had him set up to go home today with homecare starting tomorrow, however the pt's family has not been able to acquire all needed supplies to bring him home today. They specifically are waiting for a wedge to elevate the head of his bed to prevent aspiration, it should be delivered either Thu or Thursday. They would like him to remain here until all supplies are ready. He is in agreement with this. General: Denies: Fatigue Constitutional: Denies: Chills, Fever Pulmonary: Denies: Cough, Dyspnea Cardiovascular: Denies: Chest Pain, Palpitations Gastrointestinal: Denies: Diarrhea, Nausea, Vomiting Genitourinary: Denies: Dysuria Musculoskeletal: Denies: Neck Pain Neurological: Reports: Weakness Psych: Reports: Mood Normal Objective Physical Examination General Exam: Positive: Alert (sitting up in bedside chair), No Acute Distress ENT Exam: Positive: Mucous membr. moist/pink Neck Exam: Positive: Other, Supple Chest Exam: Positive: Clear to auscultation, Normal air movement Heart Exam: Positive: Normal S1, Normal S2, Rate Normal Abdomen Exam: Positive: Normal bowel sounds, Soft Extremity Exam: Negative: Edema Skin Exam: Positive: Nl turgor and temperature Psych Exam: Positive: Mental status NL, Mood NL Assessment /Plan Problems (1) Mass of lung Status: Acute Discussed With: Nurse, Patient, Family with Pt Consent Problem Specific Plan: Consult Specialist, Monitor Clinically Problem Text: 01/09 - Oncology referral pending for outpt services. 01/08 - I discussed option for consult with oncology, will arrange for pt see Oncology as an outpt, outpt referral has already been placed. 01/07 Path from [facility] and [facility] confirm adenocarcinoma of the lung. Resp symptoms stable, will arrange for oncology consult. Biopsy was done by Dr. Cox 12/26/16 and pathology results are pending. Chest x-ray showed very small pneumothorax, which has been stable. Patient is not having any shortness of breath or other symptoms. -Pathology results: prelim: adenocarcinoma, sent to [facility] fro second opinion. See path report. (2) Esophageal mass Status: Acute Discussed With: Nurse, Patient, Family with Pt Consent Problem Text: 12/26/16 Thickening of the ma of the hypopharynx and esophagus on CT. ENT was consulted. Patient is awaiting cookie swallow study, and it was recommended that he be nothing by mouth until then. Patient does not want to start tube feeds, although he is rather cachectic. CT showed thickening of the larynx and esophagus. Sputum culture was positive for yeast. Started patient empirically on treatment for candidal esophagitis, as it could have this appearance on imaging and patient is having odynophasia. - Failed Swallow study - Nothing by mouth due to aspiration risk. - Nystatin swish and swallow for an attempted empiric treatment of odynophagia/ Diflucan - Follow up ENT recommendations - Family meeting to review options: opted for PEG tube. Concerns regarding assistance with TF at home on discharge. 01/01: PEG tube placed. Family states there is someone at home who will be able to do the patient's tube feeds. No operative note available yet when patient seen this afternoon. 01/02/2017: Has started TF, slow rate. Tolerating well at this time. 01/05/2017: tolerating TF continuous infusion. 01/06/2017: Bolus TF started. tolerating well. 01/07 - Tolerating bolus TFs, nursing to work with pt on teaching and self administration. Plan for d/c home Fri/Sat with homecare. 01/08 Pt continues to do well administering TF, plan for home Sat. 01/09 - TF going well, no residuals, rx provided for supplies to be ready for d/ c. (3) Hypertension Status: Chronic Response to Treatment: Stable Problem Text: Continue lisinopril. 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 (5) Leukocytosis Status: Resolved Problem Specific Plan: Monitor Clinically Problem Text: 01/07 - WBC Nl 01/05. 01/05 - Etiology of this unclear. Resp panel neg, Blood culture x 1 Neg, x 1 pending, did recently finished course of prednisone. Currently on Zosyn IV. Tmax 100.8. Likely related to neoplastic syndrome. (6) Vomiting Status: Resolved Problem Specific Plan: Monitor Clinically Problem Text: 01/09 - no vomiting since PEG tube placement; tolerating TF well Nausea and vomiting have resolved. Patient is currently nothing by mouth. ENT consulted for laryngeal thickening. Swallow study pending. -Started treatment for possible candidal esophagitis due to odynophagia and yeast on sputum cx 01/01 -- denies vomiting. NPO. PEG tube placed, plan to begin feeds tomorrow. (7) Fever Status: Resolved Problem Text: . (8) Gastric ulcer Status: Acute Problem Text: 01/07 with bleeding, started on BID PPI via Peg, noted on EGD Plan/VTE VTE Prophylaxis Ordered?: Yes (restart anticoagulation; greater than 24 hours from biopsy; likely malignancy places patient at high risk for DVT) Plan/Urinary Catheter Reason for insertion/continuin: Acute obstruct/retention Plan Anticipated Discharge: Home (Mon 01/12, tube feeding supplies Rx provided 01/08, homecare arrangements made.) Family Medicine Attending Note: patient seen and examined early this morning; I d/w Erickson Doran PA-C and I agree with her note above. At this point, we are awaiting equipment for home; once patient's wedge is received, he can be discharged - hopefully on Thursday, as home health will then be able to see him on . He is tolerating feeds well and offers no complaints today. (KES) VS, I&O, 24H, Fishbone Vital Signs/I&O Vital Signs Date Time Temp Pulse Resp B/P Pulse Ox O2 Delivery O2 Flow Rate FiO2 01/09/17 09:29 130/59 01/09/17 06:00 98.5 99 15 92 Room Air 01/04/17 09:36 2.0 I&O- Last 24 Hours up to 6 AM 01/09/17 06:00 Intake Total 825 ml Output Total 1550 ml Balance -725 ml Laboratory Data Microbiology Microbiology 01/02/17 Blood Culture - Final, Complete NO GROWTH AFTER 5 DAYS 01/02/17 Blood Culture - Final, Complete NO GROWTH AFTER 5 DAYS 01/06/17 Gram Stain - Final, Complete 01/06/17 Sputum Culture - Final, Complete Klebsiella Pneumoniae ERICKSON DORAN PA-C Jan 09, 2017 10:23 DALJIT MERCEDES MD Jan 09, 2017 15:12
[2017-01-09 14:00] VITALS: BP 129/59
[2017-01-09 22:00] VITALS: BP 127/59
[2017-01-10] MEDS: SUCRALFATE SUSP 1GM/10ML UD GT SCH ×5 (00:33→23:49)
[2017-01-10] MEDS: LEVALBUTEROL 1.25 MG/0.5 ML CONCENTRATE NEB INH SCH ×6 (03:05→23:30)
[2017-01-10] MEDS: IPRATROPIUM 0.02% SOLN 0.5MG/2.5 ML NEB INH SCH ×6 (03:05→23:30)
[2017-01-10 05:37] LABS: MEAN CORPUSCULAR HEMOGLOBIN 29.7 pg (27.0-33.0); MEAN CORPUSCULAR HGB CONC 32.8 g/dl (32.0-36.5); MEAN CORPUSCULAR VOLUME 90.5 fl (80.0-96.0); RED CELL DISTRIBUTION WIDTH 13.4 % (11.5-14.5); WHITE BLOOD COUNT 10.6 K/mm3 (4.0-10.0)
[2017-01-10 05:49] LABS: ALBUMIN 2.7 GM/DL (3.2-5.2); ALBUMIN/GLOBULIN RATIO 0.66 (1.00-1.93); ALKALINE PHOSPHATASE 96 U/L (45-117); ALT/SGPT 29 U/L (12-78); ANION GAP 5 MEQ/L (8-16); AST/SGOT 24 U/L (15-37); BILIRUBIN,TOTAL 0.5 MG/DL (0.2-1.0); BLOOD UREA NITROGEN 20 MG/DL (7-18); CALCIUM LEVEL 8.6 MG/DL (8.8-10.2); CARBON DIOXIDE LEVEL 33 MEQ/L (21-32); CHLORIDE LEVEL 101 MEQ/L (98-107); CREATININE FOR GFR 0.69 MG/DL (0.70-1.30); GLOMERULAR FILTRATION RATE > 60.0 (>35); GLUCOSE, FASTING 111 MG/DL (83-110); POTASSIUM SERUM 4.5 MEQ/L (3.5-5.1); SODIUM LEVEL 139 MEQ/L (136-145); TOTAL PROTEIN 6.8 GM/DL (6.4-8.2)
[2017-01-10 06:00] VITALS: BP 148/69
[2017-01-10] MEDS: LANSOPRAZOLE SUSPENSION 30 MG/10 ML ORAL SYRINGE (FIRST-LANSOPRAZOLE) GT SCH ×2 (09:57→21:28)
[2017-01-10] MEDS: NYSTATIN 500,000 U/5 ML SUSP UDC PO SCH ×4 (09:57→21:28)
[2017-01-10] MEDS: LISINOPRIL 5 MG TAB PEG SCH (09:58)
[2017-01-10 14:00] VITALS: BP 123/58
--- NOTE | 2017-01-10 21:24 | IPNPDOC ---
Subjective Date Seen The patient was seen on 01/10/17. Subjective Chief Complaint/HPI The patient is a 81-year-old male admitted with a reason for visit of Esophageal Mass. Events since last encounter The patient denies any acute complaints. He reports that the pillow he was waiting for at home has now arrived. He is hoping he can be discharged on Thursday with home health, but we need to make sure this can be coordinated. Nursing reports that he is doing well with his tube feedings. Constitutional: Denies: Chills, Fever Pulmonary: Denies: Cough Cardiovascular: Denies: Chest Pain, Palpitations Genitourinary: Denies: Dysuria Psych: Reports: Mood Normal Objective Physical Examination General Exam: Positive: Alert (lying in bed when I entered the room), No Acute Distress ENT Exam: Positive: Mucous membr. moist/pink Neck Exam: Positive: Other, Supple Chest Exam: Positive: Clear to auscultation, Normal air movement Heart Exam: Positive: Normal S1, Normal S2, Rate Normal Abdomen Exam: Positive: Normal bowel sounds, Other (examination of the G-tube site reveals no erythema or drainage), Soft, Negative: Tenderness Extremity Exam: Negative: Edema Skin Exam: Positive: Nl turgor and temperature Psych Exam: Positive: Mental status NL, Mood NL Assessment /Plan Problems (1) Mass of lung Status: Acute Discussed With: Nurse, Patient, Family with Pt Consent Problem Specific Plan: Consult Specialist, Monitor Clinically Problem Text: 01/09 & - Oncology referral pending for outpt services. 01/08 - I discussed option for consult with oncology, will arrange for pt see Oncology as an outpt, outpt referral has already been placed. 01/07 Path from [facility] and [facility] confirm adenocarcinoma of the lung. Resp symptoms stable, will arrange for oncology consult. Biopsy was done by Dr. Cox 12/26/16 and pathology results are pending. Chest x-ray showed very small pneumothorax, which has been stable. Patient is not having any shortness of breath or other symptoms. -Pathology results: prelim: adenocarcinoma, sent to [facility] fro second opinion. See path report. (2) Esophageal mass Status: Acute Discussed With: Nurse, Patient, Family with Pt Consent Problem Text: 12/26/16 Thickening of the ma of the hypopharynx and esophagus on CT. ENT was consulted. Patient is awaiting cookie swallow study, and it was recommended that he be nothing by mouth until then. Patient does not want to start tube feeds, although he is rather cachectic. CT showed thickening of the larynx and esophagus. Sputum culture was positive for yeast. Started patient empirically on treatment for candidal esophagitis, as it could have this appearance on imaging and patient is having odynophasia. - Failed Swallow study - Nothing by mouth due to aspiration risk. - Nystatin swish and swallow for an attempted empiric treatment of odynophagia/ Diflucan - Follow up ENT recommendations - Family meeting to review options: opted for PEG tube. Concerns regarding assistance with TF at home on discharge. 01/01: PEG tube placed. Family states there is someone at home who will be able to do the patient's tube feeds. No operative note available yet when patient seen this afternoon. 01/02/2017: Has started TF, slow rate. Tolerating well at this time. 01/05/2017: tolerating TF continuous infusion. 01/06/2017: Bolus TF started. tolerating well. 01/07 - Tolerating bolus TFs, nursing to work with pt on teaching and self administration. Plan for d/c home Fri/Sat with homecare. 01/08 Pt continues to do well administering TF, plan for home Sat. 01/09 - TF going well, no residuals, rx provided for supplies to be ready for d/ c. 01/10 - He is doing well with his feedings. Nursing notes no problems. (3) Gastric ulcer Status: Acute Problem Text: 01/10 - stable with no noted recurrence 01/07 with bleeding, started on BID PPI via Peg, noted on EGD 01/01/17 (4) Hypertension Status: Chronic Response to Treatment: Stable Problem Text: Continue lisinopril. 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 (6) Leukocytosis Status: Resolved Problem Specific Plan: Monitor Clinically Problem Text: 01/07 - WBC Nl 01/05. 01/05 - Etiology of this unclear. Resp panel neg, Blood culture x 1 Neg, x 1 pending, did recently finished course of prednisone. Currently on Zosyn IV. Tmax 100.8. Likely related to neoplastic syndrome. (7) Vomiting Status: Resolved Problem Specific Plan: Monitor Clinically Problem Text: 01/09 - no vomiting since PEG tube placement; tolerating TF well Nausea and vomiting have resolved. Patient is currently nothing by mouth. ENT consulted for laryngeal thickening. Swallow study pending. -Started treatment for possible candidal esophagitis due to odynophagia and yeast on sputum cx 01/01 -- denies vomiting. NPO. PEG tube placed, plan to begin feeds tomorrow. (8) Fever Status: Resolved Problem Text: . Plan/VTE VTE Prophylaxis Ordered?: Yes (subcutaneous heparin was resumed today) Plan/Urinary Catheter Reason for insertion/continuin: Acute obstruct/retention Plan Anticipated Discharge: Home With Services (Mon 01/12, tube feeding supplies Rx provided 01/08, homecare arrangements made.) VS, I&O, 24H, [facility] Vital Signs/I&O Vital Signs Date Time Temp Pulse Resp B/P Pulse Ox O2 Delivery O2 Flow Rate FiO2 01/10/17 14:00 98.6 92 17 123/58 96 Room Air 01/04/17 09:36 2.0 I&O- Last 24 Hours up to 6 AM 01/10/17 06:00 Intake Total 2075 ml Output Total 1250 ml Balance 825 ml Laboratory Data 24H LABS Laboratory Tests 2 01/10/17 05:12: Blood Urea Nitrogen 20H, Creatinine 0.69L, Sodium Level 139, Potassium Level 4.5 , Chloride Level 101, Carbon Dioxide Level 33H, Calcium Level 8.6L, Aspartate Amino Transf (AST/SGOT) 24, Alanine Aminotransferase (ALT/SGPT) 29, Alkaline Phosphatase 96, Total Bilirubin 0.5, Total Protein 6.8, Albumin 2.7L, Albumin/ Globulin Ratio 0.66L, Anion Gap 5L, Glomerular Filtration Rate > 60.0 01/10/17 14:38: C-Reactive Protein, Quantitative 0.98H CBC/BMP Laboratory Tests 01/10/17 05:12 Calcium Level 8.6 L, Aspartate Amino Transf (AST/SGOT) 24, Alanine Aminotransferase (ALT/SGPT) 29, Alkaline Phosphatase 96, Total Bilirubin 0.5, Total Protein 6.8, Albumin 2.7 L, Red Blood Count 4.00 L, Mean Corpuscular Volume 90.5, Mean Corpuscular Hemoglobin 29.7, Mean Corpuscular Hemoglobin Concent 32.8, Red Cell Distribution Width 13.4 Microbiology Microbiology 01/02/17 Blood Culture - Final, Complete NO GROWTH AFTER 5 DAYS 01/02/17 Blood Culture - Final, Complete NO GROWTH AFTER 5 DAYS 01/06/17 Gram Stain - Final, Complete 01/06/17 Sputum Culture - Final, Complete Klebsiella Pneumoniae Micha Flynn MD Jan 10, 2017 9:24 pm
[2017-01-10 22:00] VITALS: BP 135/63
[2017-01-10] MEDS: HEPARIN SOD (PORCINE) 5000 UNITS/ML VIAL SQ SCH (22:13)
[2017-01-11] MEDS: IPRATROPIUM 0.02% SOLN 0.5MG/2.5 ML NEB INH SCH ×6 (03:04→23:17)
[2017-01-11] MEDS: LEVALBUTEROL 1.25 MG/0.5 ML CONCENTRATE NEB INH SCH ×6 (03:04→23:17)
[2017-01-11] MEDS: HEPARIN SOD (PORCINE) 5000 UNITS/ML VIAL SQ SCH ×3 (05:33→20:58)
[2017-01-11] MEDS: SUCRALFATE SUSP 1GM/10ML UD GT SCH ×3 (05:33→17:57)
[2017-01-11 06:00] VITALS: BP 120/58
[2017-01-11 06:18] LABS: BASO # 0.1 K/mm3 (0.0-0.2); BASO % 0.8 % (0.0-1.0); EOS % 10.4 % (0.0-3.0); LARGE UNSTAINED CELL # 0.3 K/mm3 (0.0-0.4); LARGE UNSTAINED CELL % 2.6 % (0.0-4.0); LYMPH # 2.4 K/mm3 (1.5-4.5); LYMPH % 22.4 % (24.0-44.0); MEAN CORPUSCULAR HEMOGLOBIN 29.3 pg (27.0-33.0); MEAN CORPUSCULAR HGB CONC 32.4 g/dl (32.0-36.5); MEAN CORPUSCULAR VOLUME 90.4 fl (80.0-96.0); MONO # 0.8 K/mm3 (0.0-0.8); MONO % 8.2 % (0.0-5.0); NEUTROPHILS # 5.2 K/mm3 (1.8-7.7); NEUTROPHILS % 55.6 % (36.0-66.0); PLATELET COUNT, AUTOMATED 317 k/mm3 (150-450); RED CELL DISTRIBUTION WIDTH 13.4 % (11.5-14.5); WHITE BLOOD COUNT 9.4 K/mm3 (4.0-10.0)
[2017-01-11 06:37] LABS: ALBUMIN 2.6 GM/DL (3.2-5.2); ANION GAP 5 MEQ/L (8-16); BLOOD UREA NITROGEN 22 MG/DL (7-18); CALCIUM LEVEL 8.6 MG/DL (8.8-10.2); CARBON DIOXIDE LEVEL 32 MEQ/L (21-32); CHLORIDE LEVEL 99 MEQ/L (98-107); CREATININE FOR GFR 0.68 MG/DL (0.70-1.30); GLOMERULAR FILTRATION RATE > 60.0 (>35); GLUCOSE, FASTING 114 MG/DL (83-110); POTASSIUM SERUM 4.6 MEQ/L (3.5-5.1); SODIUM LEVEL 136 MEQ/L (136-145)
[2017-01-11 09:37] VITALS: BP 120/58
[2017-01-11] MEDS: LISINOPRIL 5 MG TAB PEG SCH (09:37)
[2017-01-11] MEDS: NYSTATIN 500,000 U/5 ML SUSP UDC PO SCH ×4 (09:38→20:57)
[2017-01-11] MEDS: LANSOPRAZOLE SUSPENSION 30 MG/10 ML ORAL SYRINGE (FIRST-LANSOPRAZOLE) GT SCH ×2 (09:38→20:57)
--- NOTE | 2017-01-11 19:07 | IPNPDOC ---
Subjective Date Seen The patient was seen on 01/11/17. Subjective Chief Complaint/HPI The patient is a 81-year-old male admitted with a reason for visit of Esophageal Mass. Events since last encounter Mr. Marino has no acute complaints today. He is just biding his time until he can safely leave the hospital. 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 Nurses report he is doing very well with his tube feedings. General: Denies: Normal Appetite Pulmonary: Denies: Cough Cardiovascular: Denies: Chest Pain, Palpitations Psych: Reports: Mood Normal Objective Physical Examination General Exam: Positive: Alert (in the process of independently getting out of his bed when I entered the room.), No Acute Distress ENT Exam: Positive: Mucous membr. moist/pink Neck Exam: Positive: Other, Supple, Negative: JVD Chest Exam: Positive: Clear to auscultation, Normal air movement Heart Exam: Positive: Normal S1, Normal S2, Rate Normal Abdomen Exam: Positive: Normal bowel sounds, Soft, Negative: Tenderness Extremity Exam: Negative: Edema Skin Exam: Positive: Nl turgor and temperature Psych Exam: Positive: Mental status NL, Mood NL (he actually seems a bit cheerful today in anticipation of possible discharge tomorrow) Assessment /Plan Problems (1) Mass of lung Status: Acute Discussed With: Nurse, Patient, Family with Pt Consent Problem Specific Plan: Consult Specialist, Monitor Clinically Problem Text: 01/09 - : Oncology referral pending for outpt services. 01/08 - I discussed option for consult with oncology, will arrange for pt see Oncology as an outpt, outpt referral has already been placed. 01/07 Path from [facility] and [facility] confirm adenocarcinoma of the lung. Resp symptoms stable, will arrange for oncology consult. Biopsy was done by Dr. Cox 12/26/16 and pathology results are pending. Chest x-ray showed very small pneumothorax, which has been stable. Patient is not having any shortness of breath or other symptoms. -Pathology results: prelim: adenocarcinoma, sent to [facility] fro second opinion. See path report. (2) Esophageal mass Status: Acute Discussed With: Patient Problem Text: 12/26/16 Thickening of the ma of the hypopharynx and esophagus on CT. ENT was consulted. Patient is awaiting cookie swallow study, and it was recommended that he be nothing by mouth until then. Patient does not want to start tube feeds, although he is rather cachectic. CT showed thickening of the larynx and esophagus. Sputum culture was positive for yeast. Started patient empirically on treatment for candidal esophagitis, as it could have this appearance on imaging and patient is having odynophasia. - Failed Swallow study - Nothing by mouth due to aspiration risk. - Nystatin swish and swallow for an attempted empiric treatment of odynophagia/ Diflucan - Follow up ENT recommendations - Family meeting to review options: opted for PEG tube. Concerns regarding assistance with TF at home on discharge. 01/01: PEG tube placed. Family states there is someone at home who will be able to do the patient's tube feeds. No operative note available yet when patient seen this afternoon. 01/02/2017: Has started TF, slow rate. Tolerating well at this time. 01/05/2017: tolerating TF continuous infusion. 01/06/2017: Bolus TF started. tolerating well. 01/07 - Tolerating bolus TFs, nursing to work with pt on teaching and self administration. Plan for d/c home Fri/Sat with homecare. 01/08 Pt continues to do well administering TF, plan for home Sat. 01/09 - TF going well, no residuals, rx provided for supplies to be ready for d/ c. 01/10 - He is doing well with his feedings. Nursing notes no problems. (3) Gastric ulcer Status: Acute Problem Text: 01/10 & - stable with no noted recurrence 01/07 with bleeding, started on BID PPI via Peg, noted on EGD 01/01/17 (4) Hypertension Status: Chronic Response to Treatment: Stable Problem Text: 01/11 - I'm going to discontinue his lisinopril today. He is rapidly losing weight from his cancer and I anticipate his blood pressures are probably normal now. I am more concerned about the possibility of acute renal injury or hypotension that I am about hypertension at this point in time. 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 (6) Leukocytosis Status: Resolved Problem Specific Plan: Monitor Clinically Problem Text: 01/07 - WBC Nl 01/05. 01/05 - Etiology of this unclear. Resp panel neg, Blood culture x 1 Neg, x 1 pending, did recently finished course of prednisone. Currently on Zosyn IV. Tmax 100.8. Likely related to neoplastic syndrome. (7) Vomiting Status: Resolved Problem Specific Plan: Monitor Clinically Problem Text: 01/09 - no vomiting since PEG tube placement; tolerating TF well Nausea and vomiting have resolved. Patient is currently nothing by mouth. ENT consulted for laryngeal thickening. Swallow study pending. -Started treatment for possible candidal esophagitis due to odynophagia and yeast on sputum cx 01/01 -- denies vomiting. NPO. PEG tube placed, plan to begin feeds tomorrow. (8) Fever Status: Resolved Problem Text: . Plan/VTE VTE Prophylaxis Ordered?: Yes (subcutaneous heparin) Plan/Urinary Catheter Reason for insertion/continuin: Acute obstruct/retention Plan Anticipated Discharge: Home With Services (Mon 01/12, tube feeding supplies Rx provided 01/08, homecare arrangements made.) VS, I&O, 24H, [facility] Vital Signs/I&O Vital Signs Date Time Temp Pulse Resp B/P Pulse Ox O2 Delivery O2 Flow Rate FiO2 01/11/17 09:39 Room Air 01/11/17 09:37 120/58 01/11/17 07:51 2.0 01/11/17 06:00 98.9 96 18 94 I&O- Last 24 Hours up to 6 AM 01/11/17 06:00 Intake Total 2345 ml Output Total 900 ml Balance 1445 ml Laboratory Data 24H LABS Laboratory Tests 2 01/11/17 05:48: Albumin 2.6L, Blood Urea Nitrogen 22H, Creatinine 0.68L, Sodium Level 136, Potassium Level 4.6, Chloride Level 99, Carbon Dioxide Level 32, Anion Gap 5L, White Blood Count 9.4, Red Blood Count 3.97L, Hemoglobin 11.6L, Hematocrit 35.9L , Mean Corpuscular Volume 90.4, Mean Corpuscular Hemoglobin 29.3, Mean Corpuscular Hemoglobin Concent 32.4, Red Cell Distribution Width 13.4, Platelet Count 317, Neutrophils (%) (Auto) 55.6, Lymphocytes (%) (Auto) 22.4L, Monocytes (%) (Auto) 8.2H, Eosinophils (%) (Auto) 10.4H, Basophils (%) (Auto) 0.8, Neutrophils # (Auto) 5.2, Lymphocytes # (Auto) 2.4, Monocytes # (Auto) 0.8, Eosinophils # (Auto) 1.0H, Basophils # (Auto) 0.1, C-Reactive Protein, Quantitative 0.80H, Calcium Level 8.6L, Glomerular Filtration Rate > 60.0, Large Unclassified Cells # 0.3, Large Unclassified Cells % 2.6, Phosphorus Level 3.0 CBC/BMP Laboratory Tests 01/11/17 05:48 Anion Gap 5 L, Red Blood Count 3.97 L, Mean Corpuscular Volume 90.4, Mean Corpuscular Hemoglobin 29.3, Mean Corpuscular Hemoglobin Concent 32.4, Red Cell Distribution Width 13.4, Neutrophils (%) (Auto) 55.6, Lymphocytes (%) (Auto) 22.4 L, Monocytes (%) (Auto) 8.2 H, Eosinophils (%) (Auto) 10.4 H, Basophils (% ) (Auto) 0.8, Neutrophils # (Auto) 5.2, Lymphocytes # (Auto) 2.4, Monocytes # ( Auto) 0.8, Eosinophils # (Auto) 1.0 H, Basophils # (Auto) 0.1 Microbiology Microbiology 01/02/17 Blood Culture - Final, Complete NO GROWTH AFTER 5 DAYS 01/02/17 Blood Culture - Final, Complete NO GROWTH AFTER 5 DAYS 01/06/17 Gram Stain - Final, Complete 01/06/17 Sputum Culture - Final, Complete Klebsiella Pneumoniae Micha Flynn MD Jan 11, 2017 7:07 pm
[2017-01-12] MEDS: SUCRALFATE SUSP 1GM/10ML UD GT SCH ×3 (00:58→12:08)
[2017-01-12] MEDS: IPRATROPIUM 0.02% SOLN 0.5MG/2.5 ML NEB INH SCH ×3 (03:01→11:47)
[2017-01-12] MEDS: LEVALBUTEROL 1.25 MG/0.5 ML CONCENTRATE NEB INH SCH ×3 (03:01→11:47)
[2017-01-12] MEDS: HEPARIN SOD (PORCINE) 5000 UNITS/ML VIAL SQ SCH ×2 (05:26→13:50)
[2017-01-12] MEDS ORDERED: SUCR10SS GT (08:38)
[2017-01-12] MEDS ORDERED: FIRS3SUS GT (08:38)
[2017-01-12] MEDS ORDERED: ACET65TA PEG (08:38)
--- NOTE | 2017-01-12 09:04 | DSES ---
DATE OF ADMISSION: 12/25/2016 DATE OF DISCHARGE: 01/12/2017 PRIMARY CARE PROVIDER: ZHANG Samson ATTENDING PHYSICIAN: Dr. Melisa Driver CONSULTANTS: Dr. Cox and Dr. Luna Mukul Marino is an 81-year-old male patient who follows with ZHANG Samson at the [facility], who was recently treated for chronic obstructive pulmonary disease (COPD), which improved; however, he developed persistent hematemesis and shortness of breath with brown sputum and hoarseness. He was brought to the emergency department where a CT of the neck showed thickening of the posterior lateral ma and inferior hypopharynx suspicious for neoplasm. CT of the chest showed a lobe mass and multiple subcentimeter lymph nodes in the mediastinal hilar regions. The patient was admitted for right upper lobe lung mass and esophageal mass. The patient underwent biopsy of the lung by Dr. Cox initially on 12/26/2016 and pathology results eventually showed adenocarcinoma of the lung. The patient will be referred to outpatient oncology. ENT was consulted for esophageal mass. He was also seen by surgery and a percutaneous endoscopic gastrostomy (PEG) tube was placed. Plan was to discharge home over the weekend, however, the patient was awaiting on a mattress wedge to keep him at a 30 degrees angle, which will be available today. Therefore, the patient will be discharged home today with tube feeds, which he has been tolerating and performing on his own.. The patient was noted to have a gastric ulcer and was started on Carafate and Prevacid. The patient's lisinopril and atenolol were discontinued as his blood pressures were under good control and it was felt that he was losing weight from the cancer. We will defer to followup on whether or not to restart those medications. The patient's aspirin was also held and due to his bleeding and we will defer to outpatient followup regarding that. The patient was continued on nebulizers for his COPD. Vomiting has resolved. The patient will be discharged home with home care. He will need to follow up with oncology. He should followup with his medical information specialist, Dr. Cox, and should followup with Dr. Luna for the PEG tube. The patient should also follow up with his primary care provider in a week. MEDICATIONS: - albuterol nebs 2.5 four times a day as needed for shortness of breath - ipratropium 0.5 mg four times a day as needed for shortness of breath - albuterol puffer two puffs every 4 hours as needed for shortness of breath - Incruse Ellipta 62.5 mcg one puff daily - acetaminophen 650 mg via PEG every 4 hours as needed for pain or fever - lansoprazole 30 mg via G tube twice a day - Carafate 1 gram via G-tube every 6 hours DISCHARGE INSTRUCTIONS: PEG tube feedings as instructed. Home care. Activity as tolerated. Patient is given a prescription for a rolling walker. The patient should followup with Genoveva Lowery in 1 week. The patient should followup with Dr. Cox in 1 week. The patient should followup with Dr. Luna in 1 week. The patient should followup with oncology in 1 week. DISCHARGE DIAGNOSES: 1. Adenocarcinoma of the lung. 2. Esophageal mass. 3. Gastric ulcer. 4. Hypertension. 5. Chronic obstructive pulmonary disease (COPD). 6. Leukocytosis. 7. Vomiting. 8. Instability. MTDD
[2017-01-12] MEDS: LANSOPRAZOLE SUSPENSION 30 MG/10 ML ORAL SYRINGE (FIRST-LANSOPRAZOLE) GT SCH (09:08)
[2017-01-12] MEDS: NYSTATIN 500,000 U/5 ML SUSP UDC PO SCH ×2 (09:08→13:09)
== END 2017-01-12 15:50 | disposition home health service (06) | DRG 180 ==
LOC: M ED 08:58 → M ED INP 13:19 → M ICU 17:12 → M MSPAV 12-26 10:29
PROVIDERS: ADMIT General Practice; ATTEND Family Medicine
PROC: 0BBC3ZX Excision of Right Upper Lung Lobe, Percutaneous Approach, Diagnostic (ICD-10-PCS; principal; 2016-12-26)
PROC: 0DH68UZ Insertion of Feeding Device into Stomach, Via Natural or Artificial Opening Endoscopic (ICD-10-PCS; 2017-01-01)
DX: C34.11 Malignant neoplasm of upper lobe, right bronchus or lung (principal); K25.4 Chronic or unspecified gastric ulcer with hemorrhage; R64 Cachexia; B37.81 Candidal esophagitis; E46 Unspecified protein-calorie malnutrition; J44.9 Chronic obstructive pulmonary disease, unspecified; I71.2 Thoracic aortic aneurysm, without rupture; I11.9 Hypertensive heart disease without heart failure; K29.80 Duodenitis without bleeding; R50.9 Fever, unspecified; K29.70 Gastritis, unspecified, without bleeding; K22.2 Esophageal obstruction; E78.5 Hyperlipidemia, unspecified; Z86.711 Personal history of pulmonary embolism; R13.10 Dysphagia, unspecified; Z87.891 Personal history of nicotine dependence; R11.10 Vomiting, unspecified; D72.829 Elevated white blood cell count, unspecified; Z88.8 Allergy status to other drugs, medicaments and biological substances; Z79.82 Long term (current) use of aspirin; Z79.899 Other long term (current) drug therapy

== ENCOUNTER → 2017-01-21 | Outpatient (CLI) | payer MEDICARE ==
[~2017-01-21] MED LIST changes: +ACET65TA PEG; +FIRS3SUS GT; +INCR1INH INH; +LISI-542 PO; +SUCR10SS GT
--- NOTE | 2017-01-26 10:14 | REP ---
PET/CT: HISTORY: Initial staging, adenocarcinoma right lung. COMPARISONS: Comparison chest CT study is from December 25, 2016. CT guided needle biopsy is performed on December 26, 2016. TECHNIQUE: 63 minutes following the intravenous injection of a 9.1 mCi dose of F-18 FDG, three-dimensional PET scintigraphy is acquired from the skull base to the proximal thighs. Triplanar noncontrast CT scanning is acquired through the same anatomic range for attenuation correction, and image registration with scan parameters optimized to minimize radiation exposure to the patient. PET scintigraphy and CT datasets were fused and displayed on a workstation with multiplanar and projection display capability. PET/CT FINDINGS: The known right upper lobe malignant lung mass is hypermetabolic showing a somewhat annular pattern of hypermetabolic uptake suggesting central necrosis. Maximum standard uptake value in the lesion is 15.1. No other abnormal hypermetabolic uptake is seen within the thorax. However, there is a markedly hypermetabolic small left thyroid mass. Maximum standard uptake value in this left thyroid nodule is quite high at 22.3. This nodule measures 14 mm in greatest diameter. Histologic sampling of this left thyroid nodule is recommended. There is a minimal focus of FDG accumulation associated with the patient's gastrostomy tube in the anterior abdominal wall. This is not felt to be suspicious. No other abnormal hypermetabolic FDG accumulation is seen on today's PET/CT. IMPRESSION: 1. The malignant mass in the right upper lobe of the lung is hypermetabolic in an annular pattern suggesting central necrosis. No other abnormal hypermetabolic uptake is seen in the chest. 2. Incidental note is made of a markedly hypermetabolic small, 1.4 cm, left thyroid nodule. Histologic sampling is recommended. Signed by David Guzman MD 01/26/2017 10:55 A
== END ==
LOC: M PLARAD 10:57
PROVIDERS: ATTEND Internal Medicine Medical Oncology
DX: C34.91 Malignant neoplasm of unspecified part of right bronchus or lung (principal); E04.1 Nontoxic single thyroid nodule
CPT/HCPCS: 78815; A9552

== ENCOUNTER 2017-02-04 14:06 | Emergency (ER) | payer MEDICARE ==
[~2017-02-04] VITALS: Ht 167.6 cm; Wt 54.4 kg
[2017-02-04] MEDS ORDERED: METAL LOCK LOOP XX ONE (15:29)
[2017-02-04 16:53] LABS: ADD MORPHOLOGY? YES; BASO % 0.5 % (0.0-1.0); EOS # 0.3 K/mm3 (0.0-0.50); EOS % 3.2 % (0.0-3.0); LARGE UNSTAINED CELL # 0.2 K/mm3 (0.0-0.4); LARGE UNSTAINED CELL % 2.4 % (0.0-4.0); LYMPH # 1.9 K/mm3 (1.5-4.5); LYMPH % 18.4 % (24.0-44.0); MEAN CORPUSCULAR HEMOGLOBIN 31.3 pg (27.0-33.0); MONO # 0.8 K/mm3 (0.0-0.8); MONO % 7.9 % (0.0-5.0); NEUTROPHILS % 67.7 % (36.0-66.0); PLATELET COUNT, AUTOMATED 186 k/mm3 (150-450); RED CELL DISTRIBUTION WIDTH 13.4 % (11.5-14.5); WHITE BLOOD COUNT 10.3 K/mm3 (4.0-10.0)
[2017-02-04 17:02] LABS: ALBUMIN 2.9 GM/DL (3.2-5.2); ALBUMIN/GLOBULIN RATIO 0.74 (1.00-1.93); ALKALINE PHOSPHATASE 97 U/L (45-117); ALT/SGPT 21 U/L (12-78); ANION GAP 8 MEQ/L (8-16); AST/SGOT 17 U/L (15-37); BILIRUBIN,DIRECT 0.1 MG/DL (0.0-0.2); BILIRUBIN,TOTAL 0.5 MG/DL (0.2-1.0); BLOOD UREA NITROGEN 23 MG/DL (7-18); CARBON DIOXIDE LEVEL 30 MEQ/L (21-32); CHLORIDE LEVEL 101 MEQ/L (98-107); GLOMERULAR FILTRATION RATE > 60.0 (>35); GLUCOSE, FASTING 103 MG/DL (83-110); POTASSIUM SERUM 4.1 MEQ/L (3.5-5.1); SODIUM LEVEL 139 MEQ/L (136-145); TOTAL PROTEIN 6.8 GM/DL (6.4-8.2)
[2017-02-04 18:20] VITALS: BP 139/72
== END 2017-02-04 18:22 | disposition home or self-care (01) ==
LOC: M ED 15:00
DX: R53.81 Other malaise (principal); J44.9 Chronic obstructive pulmonary disease, unspecified; I51.7 Cardiomegaly; Z87.891 Personal history of nicotine dependence; Z93.1 Gastrostomy status

== ENCOUNTER → 2017-02-26 | Outpatient (CLI) | payer MEDICARE ==
[~2017-02-26] MED LIST changes: +LIDOCAINE 1% MDV 20ML VIAL As Ordered ONE
--- NOTE | 2017-02-26 16:23 | REP ---
ULTRASOUND GUIDED LEFT THYROID BIOPSY: The procedure was performed under the direct supervision of Dr. Guzman. The patient has a history of a markedly hypermetabolic small 1.4 cm left thyroid nodule seen on a previous PET scan dated 01/21/2017. The risks and benefits of the procedure were explained to the patient and informed consent was obtained. The left thyroid nodule was localized using ultrasound guidance. The skin was prepped and draped in a sterile fashion. 1% Xylocaine was used as a local anesthetic. Using ultrasound guidance 4 fine-needle aspirations were obtained using 25 gauge needles. The patient tolerated the procedure well and there were no immediate complications. After the appropriate amount of monitored convalescence the patient was discharged from the department. Reviewed by ROXANNA Valdovinos 02/26/2017 04:28 PEdited and Signed by David Guzman MD 02/26/2017 04:51 P
== END | disposition home or self-care (01) ==
LOC: M RADPRO 08:49
PROVIDERS: ATTEND Physician Assistant Medical
DX: E04.1 Nontoxic single thyroid nodule (principal)

== ENCOUNTER → 2017-08-19 | Outpatient (CLI) | payer MEDICARE ==
[~2017-08-19] MED LIST changes: -ACET65TA PEG; -LEVA750T PO; +LEVA750T7 PO; -LIDOCAINE 1% MDV 20ML VIAL As Ordered ONE; +MAPA325T3 PEG
--- NOTE | 2017-08-19 14:07 | REP ---
Clinical: Pain and swelling. Technique: AP and lateral views of the left hand. Findings: Age-related osteopenia and moderate degenerative changes include subchondral sclerosis and joint space narrowing primarily involving the interphalangeal joints as well as the radiocarpal joint line and the first and second carpometacarpal joints. No acute fracture dislocation. Impression: Moderate arthritic changes. Signed by Judd Gomez MD 08/19/2017 01:58 P
--- NOTE | 2017-08-19 14:08 | REP ---
Clinical: Pain and swelling. Technique: AP and lateral views of the right hand. Findings: Age-related osteopenia and moderate degenerative changes include subchondral sclerosis, marginal spurring and joint space narrowing primarily involving the interphalangeal joints as well as the radiocarpal joint line and the first and second carpometacarpal joints. No acute fracture dislocation. Impression: Moderate arthritic changes. Findings are slightly more pronounced than left hand. Signed by Judd Gomez MD 08/19/2017 02:00 P
== END ==
LOC: M ADAMS 13:23
PROVIDERS: ATTEND Physician Assistant
DX: M25.549 Pain in joints of unspecified hand (principal)

== ENCOUNTER → 2017-09-17 | Outpatient (REF) | payer MEDICARE ==
[2017-09-17 19:43] LABS: BASO # 0.1 10^3/uL (0.0-0.2); BASO % 0.5 % (0.0-1.0); EOS # 0.1 10^3/uL (0.0-0.50); EOS % 1.4 % (0.0-3.0); IMMATURE GRANULOCYTE % 0.5 % (0-0); LYMPH # 1.4 10^3/uL (1.5-4.5); LYMPH % 13.3 % (24.0-44.0); MEAN CORPUSCULAR HEMOGLOBIN 28.9 pg (27.0-33.0); MEAN CORPUSCULAR HGB CONC 31.4 g/dl (32.0-36.5); MEAN CORPUSCULAR VOLUME 91.8 fl (80.0-96.0); MONO # 1.2 10^3/uL (0.0-0.8); MONO % 11.7 % (0.0-5.0); NEUTROPHILS # 7.5 10^3/uL (1.8-7.7); NEUTROPHILS % 72.6 % (36.0-66.0); PLATELET COUNT, AUTOMATED 301 10^3/uL (150-450); RED CELL DISTRIBUTION WIDTH 13.9 % (11.5-14.5); WHITE BLOOD COUNT 10.3 10^3/uL (4.0-10.0)
[2017-09-17 20:19] LABS: ERYTHROCYTE SEDIMENTATION RATE 20 mm/hr (0-20)
== END ==
LOC: M SFHCADAM 11:39
PROVIDERS: ATTEND Physician Assistant Medical
DX: M19.90 Unspecified osteoarthritis, unspecified site (principal); M35.3 Polymyalgia rheumatica

== ENCOUNTER 2018-05-06 23:59 | Inpatient (IN) | payer MEDICARE ==
[2018-05-07 01:43] LABS: BASO % 0.2 % (0.0-1.0); EOS % 0.2 % (0.0-3.0); HEMATOCRIT 31.5 % (42.0-52.0); HEMOGLOBIN 9.9 g/dl (13.5-17.5); IMMATURE GRANULOCYTE % 0.7 % (0-3.0); LYMPH # 1.3 10^3/uL (1.5-4.5); MEAN CORPUSCULAR HEMOGLOBIN 27.3 pg (27.0-33.0); MEAN CORPUSCULAR HGB CONC 31.4 g/dl (32.0-36.5); MEAN CORPUSCULAR VOLUME 86.8 fl (80.0-96.0); MONO # 1.3 10^3/uL (0.0-0.8); MONO % 7.9 % (0.0-5.0); NEUTROPHILS # 13.5 10^3/uL (1.8-7.7); PLATELET COUNT, AUTOMATED 304 10^3/uL (150-450); RED BLOOD COUNT 3.63 10^6/uL (4.30-6.10); RED CELL DISTRIBUTION WIDTH 14.4 % (11.5-14.5); WHITE BLOOD COUNT 16.3 10^3/uL (4.0-10.0)
[2018-05-07] MEDS ORDERED: NS 1,000 ML IV (01:54)
[2018-05-07] MEDS ORDERED: ACETAMINOPHEN TAB 650MG DOSE (2X325MG) PO (02:00)
[2018-05-07 02:04] LABS: ANION GAP 8 MEQ/L (8-16); BLOOD UREA NITROGEN 27 MG/DL (7-18); CALCIUM LEVEL 8.5 MG/DL (8.8-10.2); CARBON DIOXIDE LEVEL 30 MEQ/L (21-32); CHLORIDE LEVEL 100 MEQ/L (98-107); CK-MB VALUE MASS < 1.0 NG/ML (<3.6); CPK CREATINE PHOSPHOKINASE 42 U/L (39-308); GLOMERULAR FILTRATION RATE > 60.0 (>35); GLUCOSE, FASTING 110 MG/DL (70-100); MB/CK RELATIVE INDEX 2.38 (< OR =4); POTASSIUM SERUM 4.6 MEQ/L (3.5-5.1); SODIUM LEVEL 138 MEQ/L (136-145); TROPONIN I < 0.02 NG/ML (< 0.10)
[2018-05-07] MEDS: MORPHINE 4 MG/ML 1ML VIAL/SYRINGE (J2270) IV (02:32)
[2018-05-07] MEDS: NS 1,000 ML IV (02:33)
[2018-05-07] MEDS ORDERED: ALBUTEROL SULFATE 2.5 MG/0.5 ML INH NEB SOLN INH (03:00)
[2018-05-07 03:01] LABS: INR 1.05; PROTHROMBIN TIME 13.9 SECONDS (12.1-14.4)
[2018-05-07] MEDS: PERCOCET 5MG/325MG TAB PO ×2 (04:19→18:51)
[2018-05-07] MEDS: HEPARIN SOD (PORCINE) 5000 UNITS/ML VIAL SC (06:04)
[2018-05-07] MEDS: IPRATROPIUM 0.5MG/ALBUTEROL 2.5MG INH SOL UD 3ML (DUONEB)(J7620) NEB ×4 (08:00→23:40)
[2018-05-07 08:06] LABS: HEMATOCRIT 31.9 % (42.0-52.0); MEAN CORPUSCULAR HEMOGLOBIN 27.1 pg (27.0-33.0); MEAN CORPUSCULAR HGB CONC 31.3 g/dl (32.0-36.5); MEAN CORPUSCULAR VOLUME 86.4 fl (80.0-96.0); PLATELET COUNT, AUTOMATED 302 10^3/uL (150-450); RED BLOOD COUNT 3.69 10^6/uL (4.30-6.10); RED CELL DISTRIBUTION WIDTH 14.4 % (11.5-14.5); WHITE BLOOD COUNT 17.8 10^3/uL (4.0-10.0)
[2018-05-07] MEDS ORDERED: PANTOPRAZOLE 40MG TAB (PROTONIX) PO (09:00)
[2018-05-07] MEDS: PANTOPRAZOLE 40MG INJ (PROTONIX) (C9113) IV (09:39)
[2018-05-07] MEDS ORDERED: IPRATROPIUM 0.5MG/ALBUTEROL 2.5MG INH SOL UD 3ML (DUONEB)(J7620) NEB (09:45)
[2018-05-07] MEDS: BUPIVACAINE/EPIN 0.25% 30 ML VIAL As Ordered (10:46)
[2018-05-07] MEDS ORDERED: CEFTAROLINE FOSAMIL 600 MG in D5W MINI-BAG PLUS 50 ML IV (11:00)
[2018-05-07] MEDS: ceFAZolin 2 GM/D5W 50 ML IV BAG (J0690 PER 500MG) As Ordered (11:45)
[2018-05-07] MEDS ORDERED: MIDAZOLAM INJ 2 MG/2 ML VIAL (J2250) As Ordered (12:09)
[2018-05-07] MEDS ORDERED: fentaNYL 100 MCG/2 ML INJECTION (J3010) As Ordered (12:09)
[2018-05-07] MEDS ORDERED: BUPIVACAINE/DEXTROSE 0.75% 2 ML AMP As Ordered (12:09)
[2018-05-07] MEDS ORDERED: PHENYLephrine HCL 500 MCG/5 ML (100MCG/ML) SYRINGE (J2370) As Ordered (12:09)
[2018-05-07] MEDS ORDERED: PROPOFOL 200 MG/20 ML VIAL As Ordered (12:09)
[2018-05-07] MEDS: ceFAZolin 1GM INJ (J0690 PER 500MG) As Ordered (12:30)
[2018-05-07] MEDS: TRANEXAMIC ACID 100 MG/ML 10ML VIAL As Ordered (12:30)
[2018-05-07] MEDS: EPINEPHrine INJ 1 MG/ML 1ML AMP As Ordered ×2 (12:30)
[2018-05-07] MEDS ORDERED: METOCLOPRAMIDE INJ 10MG/2ML VIAL (J2765) IV (13:45)
[2018-05-07] MEDS: LR 1,000 ML IV ×2 (13:45→16:28)
[2018-05-07] MEDS ORDERED: ONDANSETRON 4MG/2ML VIAL (J2405) IV (13:45)
[2018-05-07] MEDS ORDERED: fentaNYL 100 MCG/2 ML INJECTION (J3010) IV (13:45)
[2018-05-07] MEDS ORDERED: ONDANSETRON 4 MG TAB (S0181) PO (15:15)
[2018-05-07] MEDS: CEFTAROLINE FOSAMIL 600 MG in D5W MINI-BAG PLUS 50 ML IV (17:05)
[2018-05-07] MEDS ORDERED: PILL CRUSHER/CUTTER 1 EACH XX (18:45)
[2018-05-08] MEDS: CEFTAROLINE FOSAMIL 600 MG in D5W MINI-BAG PLUS 50 ML IV ×2 (04:59→18:24)
[2018-05-08] MEDS: PERCOCET 5MG/325MG TAB PO (04:59)
[2018-05-08] MEDS: LR 1,000 ML IV (06:31)
[2018-05-08 07:25] LABS: HEMATOCRIT 28.4 % (42.0-52.0); HEMOGLOBIN 9.1 g/dl (13.5-17.5); MEAN CORPUSCULAR HEMOGLOBIN 27.2 pg (27.0-33.0); MEAN CORPUSCULAR VOLUME 84.8 fl (80.0-96.0); PLATELET COUNT, AUTOMATED 245 10^3/uL (150-450); RED BLOOD COUNT 3.35 10^6/uL (4.30-6.10); RED CELL DISTRIBUTION WIDTH 14.3 % (11.5-14.5); WHITE BLOOD COUNT 20.7 10^3/uL (4.0-10.0)
[2018-05-08 07:48] LABS: ANION GAP 8 MEQ/L (8-16); BLOOD UREA NITROGEN 24 MG/DL (7-18); CALCIUM LEVEL 8.5 MG/DL (8.8-10.2); CARBON DIOXIDE LEVEL 29 MEQ/L (21-32); CHLORIDE LEVEL 101 MEQ/L (98-107); CREATININE FOR GFR 0.59 MG/DL (0.70-1.30); GLOMERULAR FILTRATION RATE > 60.0 (>35); GLUCOSE, FASTING 126 MG/DL (70-100); POTASSIUM SERUM 4.3 MEQ/L (3.5-5.1); SODIUM LEVEL 138 MEQ/L (136-145)
[2018-05-08] MEDS: IPRATROPIUM 0.5MG/ALBUTEROL 2.5MG INH SOL UD 3ML (DUONEB)(J7620) NEB ×3 (07:55→19:57)
[2018-05-08] MEDS: RIVAROXABAN 10 MG TAB (XARELTO) PO (18:24)
[2018-05-08] MEDS: D5W/0.45% SODIUM CHLORIDE 1,000 ML IV (18:24)
[2018-05-09] MEDS: IPRATROPIUM 0.5MG/ALBUTEROL 2.5MG INH SOL UD 3ML (DUONEB)(J7620) NEB ×4 (01:06→19:48)
[2018-05-09] MEDS: CEFTAROLINE FOSAMIL 600 MG in D5W MINI-BAG PLUS 50 ML IV ×2 (04:32→17:22)
[2018-05-09 06:48] LABS: HEMATOCRIT 28.2 % (42.0-52.0); MEAN CORPUSCULAR HEMOGLOBIN 27.2 pg (27.0-33.0); MEAN CORPUSCULAR HGB CONC 31.9 g/dl (32.0-36.5); MEAN CORPUSCULAR VOLUME 85.2 fl (80.0-96.0); PLATELET COUNT, AUTOMATED 230 10^3/uL (150-450); RED BLOOD COUNT 3.31 10^6/uL (4.30-6.10); RED CELL DISTRIBUTION WIDTH 14.5 % (11.5-14.5); WHITE BLOOD COUNT 18.4 10^3/uL (4.0-10.0)
[2018-05-09 07:18] LABS: ANION GAP 8 MEQ/L (8-16); BLOOD UREA NITROGEN 26 MG/DL (7-18); CALCIUM LEVEL 8.3 MG/DL (8.8-10.2); CARBON DIOXIDE LEVEL 28 MEQ/L (21-32); CHLORIDE LEVEL 102 MEQ/L (98-107); CREATININE FOR GFR 0.53 MG/DL (0.70-1.30); GLOMERULAR FILTRATION RATE > 60.0 (>35); GLUCOSE, FASTING 133 MG/DL (70-100); SODIUM LEVEL 138 MEQ/L (136-145)
[2018-05-09] MEDS: PERCOCET 5MG/325MG TAB PO ×2 (08:59)
[2018-05-09] MEDS: D5W/0.45% SODIUM CHLORIDE 1,000 ML IV (17:21)
[2018-05-09] MEDS: RIVAROXABAN 10 MG TAB (XARELTO) PO (17:22)
[2018-05-10] MEDS: IPRATROPIUM 0.5MG/ALBUTEROL 2.5MG INH SOL UD 3ML (DUONEB)(J7620) NEB ×2 (02:00→08:04)
[2018-05-10] MEDS: CEFTAROLINE FOSAMIL 600 MG in D5W MINI-BAG PLUS 50 ML IV (04:30)
[2018-05-10 07:33] LABS: HEMATOCRIT 28.4 % (42.0-52.0); MEAN CORPUSCULAR HEMOGLOBIN 27.4 pg (27.0-33.0); MEAN CORPUSCULAR HGB CONC 31.7 g/dl (32.0-36.5); MEAN CORPUSCULAR VOLUME 86.6 fl (80.0-96.0); PLATELET COUNT, AUTOMATED 249 10^3/uL (150-450); RED BLOOD COUNT 3.28 10^6/uL (4.30-6.10); RED CELL DISTRIBUTION WIDTH 14.4 % (11.5-14.5); WHITE BLOOD COUNT 14.7 10^3/uL (4.0-10.0)
[2018-05-10 07:41] LABS: ANION GAP 6 MEQ/L (8-16); BLOOD UREA NITROGEN 22 MG/DL (7-18); CALCIUM LEVEL 8.3 MG/DL (8.8-10.2); CARBON DIOXIDE LEVEL 28 MEQ/L (21-32); CHLORIDE LEVEL 102 MEQ/L (98-107); CREATININE FOR GFR 0.46 MG/DL (0.70-1.30); GLOMERULAR FILTRATION RATE > 60.0 (>35); GLUCOSE, FASTING 128 MG/DL (70-100); POTASSIUM SERUM 4.2 MEQ/L (3.5-5.1); SODIUM LEVEL 136 MEQ/L (136-145)
[2018-05-10] MEDS: D5W/0.45% SODIUM CHLORIDE 1,000 ML IV (09:17)
[2018-05-10] MEDS: PERCOCET 5MG/325MG TAB PO (09:18)
== END 2018-05-10 12:05 | DRG 470 ==
LOC: M ED 23:59 → M ED INP 05-07 01:54 → M MSPAV 05-07 05:15 → M MS5PR 05-07 15:20
PROC: 0SRS0J9 Replacement of Left Hip Joint, Femoral Surface with Synthetic Substitute, Cemented, Open Approach (ICD-10-PCS; principal; 2018-05-07 08:47)
DX: S72.052A Unspecified fracture of head of left femur, initial encounter for closed fracture (principal); E46 Unspecified protein-calorie malnutrition; C34.11 Malignant neoplasm of upper lobe, right bronchus or lung; Z68.1 Body mass index [BMI] 19.9 or less, adult; R64 Cachexia; W19.XXXA Unspecified fall, initial encounter; Y92.008 Other place in unspecified non-institutional (private) residence as the place of occurrence of the external cause; J44.9 Chronic obstructive pulmonary disease, unspecified; L89.222 Pressure ulcer of left hip, stage 2; M25.511 Pain in right shoulder; Z66 Do not resuscitate; R13.10 Dysphagia, unspecified; D72.829 Elevated white blood cell count, unspecified; R11.2 Nausea with vomiting, unspecified; D64.9 Anemia, unspecified; Z93.0 Tracheostomy status; Z87.891 Personal history of nicotine dependence; Z92.3 Personal history of irradiation; Z99.81 Dependence on supplemental oxygen; Z79.899 Other long term (current) drug therapy

== ENCOUNTER 2018-05-10 11:49 | Inpatient (IN) | payer MEDICARE ==
[2018-05-10] MEDS ORDERED: MOM 30ML SUSPENSION UDC PO (12:45)
[2018-05-10] MEDS ORDERED: MIRALAX *UNIT DOSE* 17GM PACKET PO (12:45)
[2018-05-10] MEDS ORDERED: FLEET ENEMA PR (12:45)
[2018-05-10] MEDS ORDERED: BISACODYL 5 MG TAB PO (12:45)
[2018-05-10] MEDS ORDERED: ONDANSETRON 4 MG TAB (S0181) PO (12:45)
[2018-05-10] MEDS ORDERED: BISACODYL 10 MG SUPP PR (12:45)
[2018-05-10] MEDS: IPRATROPIUM 0.5MG/ALBUTEROL 2.5MG INH SOL UD 3ML (DUONEB)(J7620) NEB ×2 (13:59→19:32)
[2018-05-10] MEDS: CEFTAROLINE FOSAMIL 400 MG in D5W MINI-BAG PLUS 50 ML IV (16:38)
[2018-05-10] MEDS: SLF 3 ML SYR IV ×2 (16:43→22:00)
[2018-05-10] MEDS: RIVAROXABAN 10 MG TAB (XARELTO) PO (17:50)
[2018-05-10] MEDS ORDERED: CEFTAROLINE FOSAMIL 600 MG in D5W MINI-BAG PLUS 50 ML IV (18:00)
[2018-05-10] MEDS: SENNA 8.6 MG TAB (SENOKOT) PO (21:00)
[2018-05-11] MEDS: ACETAMINOPHEN TAB 650MG DOSE (2X325MG) PO ×2 (00:14→20:40)
[2018-05-11] MEDS: IPRATROPIUM 0.5MG/ALBUTEROL 2.5MG INH SOL UD 3ML (DUONEB)(J7620) NEB ×4 (01:22→21:02)
[2018-05-11] MEDS: CEFTAROLINE FOSAMIL 400 MG in D5W MINI-BAG PLUS 50 ML IV ×2 (04:55→16:18)
[2018-05-11] MEDS: SLF 3 ML SYR IV ×4 (05:56→21:00)
[2018-05-11 07:01] LABS: BASO % 0.1 % (0.0-1.0); EOS # 0.2 10^3/uL (0.0-0.50); HEMATOCRIT 28.6 % (42.0-52.0); IMMATURE GRANULOCYTE % 0.6 % (0-3.0); LYMPH # 1.2 10^3/uL (1.5-4.5); MEAN CORPUSCULAR HEMOGLOBIN 27.4 pg (27.0-33.0); MEAN CORPUSCULAR HGB CONC 31.5 g/dl (32.0-36.5); MEAN CORPUSCULAR VOLUME 87.2 fl (80.0-96.0); MONO # 1.3 10^3/uL (0.0-0.8); MONO % 8.4 % (0.0-5.0); NEUTROPHILS # 12.2 10^3/uL (1.8-7.7); NEUTROPHILS % 81.9 % (36.0-66.0); PLATELET COUNT, AUTOMATED 275 10^3/uL (150-450); RED BLOOD COUNT 3.28 10^6/uL (4.30-6.10); RED CELL DISTRIBUTION WIDTH 14.4 % (11.5-14.5); WHITE BLOOD COUNT 14.8 10^3/uL (4.0-10.0)
[2018-05-11 07:13] LABS: ALBUMIN 1.9 GM/DL (3.2-5.2); ALBUMIN/GLOBULIN RATIO 0.44 (1.00-1.93); ALKALINE PHOSPHATASE 108 U/L (45-117); ALT/SGPT 28 U/L (12-78); ANION GAP 6 MEQ/L (8-16); AST/SGOT 23 U/L (7-37); BILIRUBIN,TOTAL 0.4 MG/DL (0.2-1.0); BLOOD UREA NITROGEN 23 MG/DL (7-18); CALCIUM LEVEL 8.7 MG/DL (8.8-10.2); CARBON DIOXIDE LEVEL 31 MEQ/L (21-32); CHLORIDE LEVEL 102 MEQ/L (98-107); CREATININE FOR GFR 0.56 MG/DL (0.70-1.30); GLOMERULAR FILTRATION RATE > 60.0 (>35); GLUCOSE, FASTING 104 MG/DL (70-100); POTASSIUM SERUM 4.4 MEQ/L (3.5-5.1); SODIUM LEVEL 139 MEQ/L (136-145); TOTAL PROTEIN 6.2 GM/DL (6.4-8.2)
[2018-05-11] MEDS: RIVAROXABAN 10 MG TAB (XARELTO) PO (17:32)
[2018-05-11 20:20] LABS: KETONE, URINE AUTO RFX NEGATIVE (NEGATIVE); LEUKOCYTE ESTERASE UR AUTO RFX NEGATIVE (NEGATIVE); MUCUS, URINE RFX SMALL (NEGATIVE); NITRITE, URINE AUTO RFX NEGATIVE (NEGATIVE); RBC, URINE AUTO RFX 2 /HPF (0-3); SPECIFIC GRAVITY UR AUTO RFX 1.015 (1.002-1.035); SQUAM EPITHELIAL CELL UR AURFX 0 /HPF (0-6); WBC, URINE AUTO RFX 1 /HPF (0-3)
[2018-05-11] MEDS: SENNA 8.6 MG TAB (SENOKOT) PO (20:40)
[2018-05-12] MEDS: CEFTAROLINE FOSAMIL 400 MG in D5W MINI-BAG PLUS 50 ML IV ×2 (04:59→16:00)
[2018-05-12] MEDS: ACETAMINOPHEN TAB 650MG DOSE (2X325MG) PO ×3 (05:00→21:57)
[2018-05-12 07:25] LABS: BASO % 0.1 % (0.0-1.0); EOS # 0.1 10^3/uL (0.0-0.50); EOS % 0.8 % (0.0-3.0); HEMATOCRIT 27.5 % (42.0-52.0); HEMOGLOBIN 8.6 g/dl (13.5-17.5); IMMATURE GRANULOCYTE % 0.5 % (0-3.0); LYMPH % 7.5 % (24.0-44.0); MEAN CORPUSCULAR HEMOGLOBIN 26.6 pg (27.0-33.0); MEAN CORPUSCULAR HGB CONC 31.3 g/dl (32.0-36.5); MEAN CORPUSCULAR VOLUME 85.1 fl (80.0-96.0); MONO % 7.8 % (0.0-5.0); NEUTROPHILS # 11.1 10^3/uL (1.8-7.7); NEUTROPHILS % 83.3 % (36.0-66.0); PLATELET COUNT, AUTOMATED 305 10^3/uL (150-450); RED BLOOD COUNT 3.23 10^6/uL (4.30-6.10); RED CELL DISTRIBUTION WIDTH 14.4 % (11.5-14.5); WHITE BLOOD COUNT 13.3 10^3/uL (4.0-10.0)
[2018-05-12] MEDS: IPRATROPIUM 0.5MG/ALBUTEROL 2.5MG INH SOL UD 3ML (DUONEB)(J7620) NEB ×3 (07:52→21:25)
[2018-05-12 08:03] LABS: ANION GAP 7 MEQ/L (8-16); BLOOD UREA NITROGEN 24 MG/DL (7-18); CALCIUM LEVEL 8.5 MG/DL (8.8-10.2); CARBON DIOXIDE LEVEL 31 MEQ/L (21-32); CHLORIDE LEVEL 100 MEQ/L (98-107); CREATININE FOR GFR 0.59 MG/DL (0.70-1.30); GLOMERULAR FILTRATION RATE > 60.0 (>35); GLUCOSE, FASTING 182 MG/DL (70-100); SODIUM LEVEL 138 MEQ/L (136-145)
[2018-05-12] MEDS: SLF 3 ML SYR IV ×2 (12:28→21:58)
[2018-05-12] MEDS: RIVAROXABAN 10 MG TAB (XARELTO) PO (17:09)
[2018-05-12] MEDS: SENNA 8.6 MG TAB (SENOKOT) PO (21:56)
[2018-05-12] MEDS: PERCOCET 5MG/325MG TAB PO (23:59)
[2018-05-13] MEDS: IPRATROPIUM 0.5MG/ALBUTEROL 2.5MG INH SOL UD 3ML (DUONEB)(J7620) NEB ×3 (02:00→13:38)
[2018-05-13] MEDS: CEFTAROLINE FOSAMIL 400 MG in D5W MINI-BAG PLUS 50 ML IV ×2 (06:01→17:09)
[2018-05-13] MEDS: SLF 3 ML SYR IV ×3 (06:01→22:00)
[2018-05-13] MEDS: PERCOCET 5MG/325MG TAB PO ×3 (06:15→21:52)
[2018-05-13 08:21] LABS: BASO # 0.1 10^3/uL (0.0-0.2); BASO % 0.4 % (0.0-1.0); EOS # 0.2 10^3/uL (0.0-0.50); EOS % 0.9 % (0.0-3.0); HEMATOCRIT 30.7 % (42.0-52.0); HEMOGLOBIN 9.6 g/dl (13.5-17.5); IMMATURE GRANULOCYTE % 0.6 % (0-3.0); LYMPH # 1.1 10^3/uL (1.5-4.5); LYMPH % 6.7 % (24.0-44.0); MEAN CORPUSCULAR HEMOGLOBIN 27.5 pg (27.0-33.0); MEAN CORPUSCULAR HGB CONC 31.3 g/dl (32.0-36.5); MONO # 1.4 10^3/uL (0.0-0.8); MONO % 8.7 % (0.0-5.0); NEUTROPHILS # 13.5 10^3/uL (1.8-7.7); NEUTROPHILS % 82.7 % (36.0-66.0); PLATELET COUNT, AUTOMATED 324 10^3/uL (150-450); RED BLOOD COUNT 3.49 10^6/uL (4.30-6.10); RED CELL DISTRIBUTION WIDTH 14.6 % (11.5-14.5); WHITE BLOOD COUNT 16.4 10^3/uL (4.0-10.0)
[2018-05-13 08:42] LABS: ANION GAP 6 MEQ/L (8-16); BLOOD UREA NITROGEN 26 MG/DL (7-18); CALCIUM LEVEL 8.2 MG/DL (8.8-10.2); CARBON DIOXIDE LEVEL 32 MEQ/L (21-32); CHLORIDE LEVEL 100 MEQ/L (98-107); CREATININE FOR GFR 0.56 MG/DL (0.70-1.30); GLOMERULAR FILTRATION RATE > 60.0 (>35); GLUCOSE, FASTING 159 MG/DL (70-100); MAGNESIUM LEVEL 2.1 MG/DL (1.8-2.4); POTASSIUM SERUM 4.9 MEQ/L (3.5-5.1); SODIUM LEVEL 138 MEQ/L (136-145)
[2018-05-13 12:29] LABS: HEMATOCRIT 30.4 % (42.0-52.0); HEMOGLOBIN 9.4 g/dl (13.5-17.5); MEAN CORPUSCULAR HGB CONC 30.9 g/dl (32.0-36.5); MEAN CORPUSCULAR VOLUME 87.4 fl (80.0-96.0); PLATELET COUNT, AUTOMATED 334 10^3/uL (150-450); RED BLOOD COUNT 3.48 10^6/uL (4.30-6.10); RED CELL DISTRIBUTION WIDTH 14.6 % (11.5-14.5); WHITE BLOOD COUNT 16.3 10^3/uL (4.0-10.0)
[2018-05-13] MEDS: SODIUM CHLORIDE 0.9% 1000 ML IV (16:07)
[2018-05-13] MEDS: RIVAROXABAN 10 MG TAB (XARELTO) PO (17:08)
[2018-05-13] MEDS: SENNA 8.6 MG TAB (SENOKOT) PO (21:52)
[2018-05-14] MEDS: CEFTAROLINE FOSAMIL 400 MG in D5W MINI-BAG PLUS 50 ML IV ×2 (05:54→16:03)
[2018-05-14] MEDS: SLF 3 ML SYR IV ×3 (05:55→21:40)
[2018-05-14 08:01] LABS: BASO # 0.1 10^3/uL (0.0-0.2); BASO % 0.3 % (0.0-1.0); EOS # 0.2 10^3/uL (0.0-0.50); EOS % 0.9 % (0.0-3.0); HEMATOCRIT 29.7 % (42.0-52.0); HEMOGLOBIN 9.1 g/dl (13.5-17.5); IMMATURE GRANULOCYTE % 0.7 % (0-3.0); LYMPH # 1.3 10^3/uL (1.5-4.5); LYMPH % 6.3 % (24.0-44.0); MEAN CORPUSCULAR HEMOGLOBIN 27.2 pg (27.0-33.0); MEAN CORPUSCULAR HGB CONC 30.6 g/dl (32.0-36.5); MEAN CORPUSCULAR VOLUME 88.9 fl (80.0-96.0); MONO # 1.2 10^3/uL (0.0-0.8); MONO % 6.1 % (0.0-5.0); NEUTROPHILS # 17.3 10^3/uL (1.8-7.7); NEUTROPHILS % 85.7 % (36.0-66.0); PLATELET COUNT, AUTOMATED 312 10^3/uL (150-450); RED BLOOD COUNT 3.34 10^6/uL (4.30-6.10); RED CELL DISTRIBUTION WIDTH 14.5 % (11.5-14.5); WHITE BLOOD COUNT 20.2 10^3/uL (4.0-10.0)
[2018-05-14 08:37] LABS: ANION GAP 6 MEQ/L (8-16); BLOOD UREA NITROGEN 26 MG/DL (7-18); CALCIUM LEVEL 8.8 MG/DL (8.8-10.2); CARBON DIOXIDE LEVEL 32 MEQ/L (21-32); CHLORIDE LEVEL 98 MEQ/L (98-107); CREATININE FOR GFR 0.59 MG/DL (0.70-1.30); GLOMERULAR FILTRATION RATE > 60.0 (>35); GLUCOSE, FASTING 181 MG/DL (70-100); POTASSIUM SERUM 4.8 MEQ/L (3.5-5.1); SODIUM LEVEL 136 MEQ/L (136-145)
[2018-05-14] MEDS: PERCOCET 5MG/325MG TAB PO (09:04)
[2018-05-14] MEDS: ONDANSETRON 4MG/2ML VIAL (J2405) IM (09:04)
[2018-05-14 10:56] LABS: HEMATOCRIT 33.4 % (42.0-52.0); HEMOGLOBIN 10.2 g/dl (13.5-17.5); RED BLOOD COUNT 3.74 10^6/uL (4.30-6.10); WHITE BLOOD COUNT 20.5 10^3/uL (4.0-10.0)
[2018-05-14 10:57] LABS: BASO # 0.1 10^3/uL (0.0-0.2); BASO % 0.3 % (0.0-1.0); EOS # 0.2 10^3/uL (0.0-0.50); EOS % 0.7 % (0.0-3.0); IMMATURE GRANULOCYTE % 0.7 % (0-3.0); LYMPH # 1.1 10^3/uL (1.5-4.5); LYMPH % 5.4 % (24.0-44.0); MEAN CORPUSCULAR HEMOGLOBIN 27.3 pg (27.0-33.0); MEAN CORPUSCULAR HGB CONC 30.5 g/dl (32.0-36.5); MEAN CORPUSCULAR VOLUME 89.3 fl (80.0-96.0); MONO # 1.7 10^3/uL (0.0-0.8); MONO % 8.2 % (0.0-5.0); NEUTROPHILS # 17.3 10^3/uL (1.8-7.7); NEUTROPHILS % 84.7 % (36.0-66.0); PLATELET COUNT, AUTOMATED 364 10^3/uL (150-450); RED CELL DISTRIBUTION WIDTH 14.6 % (11.5-14.5)
[2018-05-14] MEDS ORDERED: VARIBAR PUDDING 40% w/v 230ML TUBE As Ordered (11:13)
[2018-05-14] MEDS ORDERED: E-Z-PAQUE 96% w/w SUSP 176GM BTL As Ordered (11:13)
[2018-05-14] MEDS ORDERED: VARIBAR NECTAR 40% w/v 240ML SUSP BTL As Ordered (11:13)
[2018-05-14 11:20] LABS: ANION GAP 6 MEQ/L (8-16); BLOOD UREA NITROGEN 30 MG/DL (7-18); CALCIUM LEVEL 9.4 MG/DL (8.8-10.2); CARBON DIOXIDE LEVEL 35 MEQ/L (21-32); CHLORIDE LEVEL 95 MEQ/L (98-107); GLOMERULAR FILTRATION RATE > 60.0 (>35); GLUCOSE, FASTING 103 MG/DL (70-100); POTASSIUM SERUM 4.9 MEQ/L (3.5-5.1); SODIUM LEVEL 136 MEQ/L (136-145)
[2018-05-14] MEDS: RIVAROXABAN 10 MG TAB (XARELTO) PO (17:20)
[2018-05-14] MEDS: SALIVA SUBSTITUTE(MOUTHKOTE) BTL MT ×2 (17:20→21:40)
[2018-05-14] MEDS: SENNA 8.6 MG TAB (SENOKOT) PO (21:00)
[2018-05-14] MEDS: ACETAMINOPHEN TAB 650MG DOSE (2X325MG) PO (21:48)
[2018-05-15] MEDS: CEFTAROLINE FOSAMIL 400 MG in D5W MINI-BAG PLUS 50 ML IV ×2 (04:57→16:00)
[2018-05-15] MEDS: SLF 3 ML SYR IV ×3 (06:00→20:55)
[2018-05-15 07:04] LABS: BASO # 0.1 10^3/uL (0.0-0.2); BASO % 0.3 % (0.0-1.0); EOS # 0.1 10^3/uL (0.0-0.50); EOS % 0.4 % (0.0-3.0); HEMATOCRIT 28.5 % (42.0-52.0); IMMATURE GRANULOCYTE % 0.8 % (0-3.0); LYMPH # 1.2 10^3/uL (1.5-4.5); LYMPH % 6.7 % (24.0-44.0); MEAN CORPUSCULAR HEMOGLOBIN 27.4 pg (27.0-33.0); MEAN CORPUSCULAR HGB CONC 31.6 g/dl (32.0-36.5); MEAN CORPUSCULAR VOLUME 86.6 fl (80.0-96.0); MONO # 1.5 10^3/uL (0.0-0.8); MONO % 8.3 % (0.0-5.0); NEUTROPHILS # 15.2 10^3/uL (1.8-7.7); NEUTROPHILS % 83.5 % (36.0-66.0); PLATELET COUNT, AUTOMATED 329 10^3/uL (150-450); RED BLOOD COUNT 3.29 10^6/uL (4.30-6.10); RED CELL DISTRIBUTION WIDTH 14.2 % (11.5-14.5); WHITE BLOOD COUNT 18.3 10^3/uL (4.0-10.0)
[2018-05-15 07:27] LABS: ANION GAP 8 MEQ/L (8-16); BLOOD UREA NITROGEN 29 MG/DL (7-18); CARBON DIOXIDE LEVEL 32 MEQ/L (21-32); CHLORIDE LEVEL 96 MEQ/L (98-107); CREATININE FOR GFR 0.53 MG/DL (0.70-1.30); GLOMERULAR FILTRATION RATE > 60.0 (>35); GLUCOSE, FASTING 102 MG/DL (70-100); POTASSIUM SERUM 4.7 MEQ/L (3.5-5.1); SODIUM LEVEL 136 MEQ/L (136-145)
[2018-05-15] MEDS ORDERED: ONDANSETRON 4 MG TAB (S0181) PEG (08:00)
[2018-05-15] MEDS ORDERED: BISACODYL 5 MG TAB PEG (08:00)
[2018-05-15] MEDS: SALIVA SUBSTITUTE(MOUTHKOTE) BTL MT ×3 (09:00→20:54)
[2018-05-15] MEDS: PERCOCET 5MG/325MG TAB PEG ×2 (09:11→16:07)
[2018-05-15] MEDS: RIVAROXABAN 10 MG TAB (XARELTO) PEG (17:14)
[2018-05-15] MEDS: SENNA 8.6 MG TAB (SENOKOT) PEG (20:52)
[2018-05-15] MEDS: ACETAMINOPHEN TAB 650MG DOSE (2X325MG) PEG (20:54)
[2018-05-16] MEDS: CEFTAROLINE FOSAMIL 400 MG in D5W MINI-BAG PLUS 50 ML IV ×2 (05:05→17:27)
[2018-05-16] MEDS: SLF 3 ML SYR IV ×3 (05:06→21:16)
[2018-05-16] MEDS: ACETAMINOPHEN TAB 650MG DOSE (2X325MG) PEG (05:45)
[2018-05-16 06:44] LABS: BASO # 0.1 10^3/uL (0.0-0.2); BASO % 0.3 % (0.0-1.0); EOS # 0.1 10^3/uL (0.0-0.50); EOS % 0.6 % (0.0-3.0); HEMATOCRIT 28.6 % (42.0-52.0); IMMATURE GRANULOCYTE % 0.8 % (0-3.0); MEAN CORPUSCULAR HGB CONC 31.5 g/dl (32.0-36.5); MEAN CORPUSCULAR VOLUME 85.9 fl (80.0-96.0); MONO # 1.3 10^3/uL (0.0-0.8); MONO % 7.3 % (0.0-5.0); NEUTROPHILS # 14.6 10^3/uL (1.8-7.7); PLATELET COUNT, AUTOMATED 317 10^3/uL (150-450); RED BLOOD COUNT 3.33 10^6/uL (4.30-6.10); RED CELL DISTRIBUTION WIDTH 14.3 % (11.5-14.5); WHITE BLOOD COUNT 17.2 10^3/uL (4.0-10.0)
[2018-05-16 07:01] LABS: ANION GAP 5 MEQ/L (8-16); BLOOD UREA NITROGEN 27 MG/DL (7-18); CALCIUM LEVEL 8.6 MG/DL (8.8-10.2); CARBON DIOXIDE LEVEL 33 MEQ/L (21-32); CHLORIDE LEVEL 95 MEQ/L (98-107); CREATININE FOR GFR 0.58 MG/DL (0.70-1.30); GLOMERULAR FILTRATION RATE > 60.0 (>35); GLUCOSE, FASTING 181 MG/DL (70-100); POTASSIUM SERUM 4.6 MEQ/L (3.5-5.1); SODIUM LEVEL 133 MEQ/L (136-145)
[2018-05-16] MEDS: PERCOCET 5MG/325MG TAB PEG ×3 (10:05→21:15)
[2018-05-16] MEDS: SALIVA SUBSTITUTE(MOUTHKOTE) BTL MT ×3 (10:05→21:11)
[2018-05-16] MEDS: RIVAROXABAN 10 MG TAB (XARELTO) PEG (17:27)
[2018-05-16] MEDS: SENNA 8.6 MG TAB (SENOKOT) PEG (21:14)
[2018-05-17] MEDS: SLF 3 ML SYR IV ×3 (05:58→21:55)
[2018-05-17] MEDS: CEFTAROLINE FOSAMIL 400 MG in D5W MINI-BAG PLUS 50 ML IV ×2 (05:58→17:39)
[2018-05-17] MEDS: PERCOCET 5MG/325MG TAB PEG ×2 (06:09→15:05)
[2018-05-17 06:49] LABS: BASO # 0.1 10^3/uL (0.0-0.2); BASO % 0.3 % (0.0-1.0); EOS # 0.1 10^3/uL (0.0-0.50); EOS % 0.6 % (0.0-3.0); HEMATOCRIT 31.6 % (42.0-52.0); HEMOGLOBIN 9.8 g/dl (13.5-17.5); IMMATURE GRANULOCYTE % 0.7 % (0-3.0); LYMPH # 1.3 10^3/uL (1.5-4.5); LYMPH % 7.6 % (24.0-44.0); MEAN CORPUSCULAR HEMOGLOBIN 26.7 pg (27.0-33.0); MEAN CORPUSCULAR VOLUME 86.1 fl (80.0-96.0); MONO # 1.5 10^3/uL (0.0-0.8); MONO % 8.8 % (0.0-5.0); NEUTROPHILS # 14.4 10^3/uL (1.8-7.7); PLATELET COUNT, AUTOMATED 335 10^3/uL (150-450); RED BLOOD COUNT 3.67 10^6/uL (4.30-6.10); RED CELL DISTRIBUTION WIDTH 14.3 % (11.5-14.5); WHITE BLOOD COUNT 17.5 10^3/uL (4.0-10.0)
[2018-05-17 07:09] LABS: ANION GAP 3 MEQ/L (8-16); BLOOD UREA NITROGEN 26 MG/DL (7-18); CALCIUM LEVEL 9.2 MG/DL (8.8-10.2); CARBON DIOXIDE LEVEL 35 MEQ/L (21-32); CHLORIDE LEVEL 93 MEQ/L (98-107); CREATININE FOR GFR 0.56 MG/DL (0.70-1.30); GLOMERULAR FILTRATION RATE > 60.0 (>35); GLUCOSE, FASTING 109 MG/DL (70-100); SODIUM LEVEL 131 MEQ/L (136-145)
[2018-05-17] MEDS: SALIVA SUBSTITUTE(MOUTHKOTE) BTL MT ×3 (09:30→21:56)
[2018-05-17] MEDS: SODIUM CHLORIDE 1 GM TAB PEG ×2 (12:42→21:55)
[2018-05-17] MEDS: RIVAROXABAN 10 MG TAB (XARELTO) PEG (17:39)
[2018-05-17] MEDS: ONDANSETRON 4MG/2ML VIAL (J2405) IM (17:58)
[2018-05-17] MEDS: SENNA 8.6 MG TAB (SENOKOT) PEG (21:55)
[2018-05-18] MEDS: SLF 3 ML SYR IV ×3 (05:34→22:00)
[2018-05-18] MEDS: CEFTAROLINE FOSAMIL 400 MG in D5W MINI-BAG PLUS 50 ML IV ×2 (05:34→17:19)
[2018-05-18 06:19] LABS: BASO # 0.1 10^3/uL (0.0-0.2); BASO % 0.3 % (0.0-1.0); EOS # 0.1 10^3/uL (0.0-0.50); EOS % 0.4 % (0.0-3.0); HEMOGLOBIN 8.8 g/dl (13.5-17.5); IMMATURE GRANULOCYTE % 0.6 % (0-3.0); LYMPH # 1.3 10^3/uL (1.5-4.5); LYMPH % 6.1 % (24.0-44.0); MEAN CORPUSCULAR HEMOGLOBIN 27.1 pg (27.0-33.0); MEAN CORPUSCULAR HGB CONC 31.4 g/dl (32.0-36.5); MEAN CORPUSCULAR VOLUME 86.2 fl (80.0-96.0); MONO # 1.2 10^3/uL (0.0-0.8); MONO % 5.5 % (0.0-5.0); NEUTROPHILS % 87.1 % (36.0-66.0); PLATELET COUNT, AUTOMATED 301 10^3/uL (150-450); RED BLOOD COUNT 3.25 10^6/uL (4.30-6.10); RED CELL DISTRIBUTION WIDTH 14.3 % (11.5-14.5); WHITE BLOOD COUNT 21.7 10^3/uL (4.0-10.0)
[2018-05-18 06:41] LABS: ANION GAP 5 MEQ/L (8-16); BLOOD UREA NITROGEN 26 MG/DL (7-18); CARBON DIOXIDE LEVEL 35 MEQ/L (21-32); CHLORIDE LEVEL 94 MEQ/L (98-107); CREATININE FOR GFR 0.68 MG/DL (0.70-1.30); GLOMERULAR FILTRATION RATE > 60.0 (>35); GLUCOSE, FASTING 137 MG/DL (70-100); POTASSIUM SERUM 4.6 MEQ/L (3.5-5.1); SODIUM LEVEL 134 MEQ/L (136-145)
[2018-05-18 10:02] LABS: BASO # 0.1 10^3/uL (0.0-0.2); BASO % 0.3 % (0.0-1.0); EOS # 0.1 10^3/uL (0.0-0.50); EOS % 0.6 % (0.0-3.0); HEMATOCRIT 30.3 % (42.0-52.0); HEMOGLOBIN 9.6 g/dl (13.5-17.5); IMMATURE GRANULOCYTE % 0.6 % (0-3.0); LYMPH # 1.7 10^3/uL (1.5-4.5); LYMPH % 7.2 % (24.0-44.0); MEAN CORPUSCULAR HEMOGLOBIN 27.1 pg (27.0-33.0); MEAN CORPUSCULAR HGB CONC 31.7 g/dl (32.0-36.5); MEAN CORPUSCULAR VOLUME 85.6 fl (80.0-96.0); MONO # 1.8 10^3/uL (0.0-0.8); MONO % 7.6 % (0.0-5.0); NEUTROPHILS # 19.6 10^3/uL (1.8-7.7); NEUTROPHILS % 83.7 % (36.0-66.0); PLATELET COUNT, AUTOMATED 353 10^3/uL (150-450); RED BLOOD COUNT 3.54 10^6/uL (4.30-6.10); RED CELL DISTRIBUTION WIDTH 14.3 % (11.5-14.5); WHITE BLOOD COUNT 23.4 10^3/uL (4.0-10.0)
[2018-05-18] MEDS: SODIUM CHLORIDE 1 GM TAB PEG ×2 (10:15→20:44)
[2018-05-18] MEDS: PERCOCET 5MG/325MG TAB PEG (10:15)
[2018-05-18] MEDS: SALIVA SUBSTITUTE(MOUTHKOTE) BTL MT ×3 (10:16→20:44)
[2018-05-18 10:28] LABS: CPK CREATINE PHOSPHOKINASE 26 U/L (39-308); TROPONIN I < 0.02 NG/ML (< 0.10)
[2018-05-18 10:29] LABS: CK-MB VALUE MASS < 1.0 NG/ML (<3.6); MB/CK RELATIVE INDEX 3.84 (< OR =4)
[2018-05-18] MEDS: RIVAROXABAN 10 MG TAB (XARELTO) PEG (17:20)
[2018-05-18 17:58] LABS: CK-MB VALUE MASS < 1.0 NG/ML (<3.6); CPK CREATINE PHOSPHOKINASE 17 U/L (39-308); MB/CK RELATIVE INDEX 5.88 (< OR =4); TROPONIN I < 0.02 NG/ML (< 0.10)
[2018-05-18] MEDS: ACETAMINOPHEN TAB 650MG DOSE (2X325MG) PEG (20:44)
[2018-05-18] MEDS: SENNA 8.6 MG TAB (SENOKOT) PEG (20:44)
[2018-05-19 02:28] LABS: CPK CREATINE PHOSPHOKINASE 20 U/L (39-308); TROPONIN I < 0.02 NG/ML (< 0.10)
[2018-05-19 02:29] LABS: CK-MB VALUE MASS < 1.0 NG/ML (<3.6)
[2018-05-19] MEDS: SLF 3 ML SYR IV ×3 (05:14→20:42)
[2018-05-19] MEDS: CEFTAROLINE FOSAMIL 400 MG in D5W MINI-BAG PLUS 50 ML IV ×2 (05:14→16:51)
[2018-05-19] MEDS: SALIVA SUBSTITUTE(MOUTHKOTE) BTL MT ×4 (06:07→20:42)
[2018-05-19] MEDS: ACETAMINOPHEN TAB 650MG DOSE (2X325MG) PEG ×2 (06:08→17:25)
[2018-05-19 07:04] LABS: BASO # 0.1 10^3/uL (0.0-0.2); BASO % 0.3 % (0.0-1.0); EOS # 0.2 10^3/uL (0.0-0.50); EOS % 0.8 % (0.0-3.0); HEMATOCRIT 31.2 % (42.0-52.0); HEMOGLOBIN 9.6 g/dl (13.5-17.5); IMMATURE GRANULOCYTE % 0.7 % (0-3.0); LYMPH # 1.7 10^3/uL (1.5-4.5); MEAN CORPUSCULAR HEMOGLOBIN 27.1 pg (27.0-33.0); MEAN CORPUSCULAR HGB CONC 30.8 g/dl (32.0-36.5); MEAN CORPUSCULAR VOLUME 88.1 fl (80.0-96.0); MONO # 1.4 10^3/uL (0.0-0.8); MONO % 6.5 % (0.0-5.0); NEUTROPHILS # 17.5 10^3/uL (1.8-7.7); NEUTROPHILS % 83.7 % (36.0-66.0); PLATELET COUNT, AUTOMATED 316 10^3/uL (150-450); RED BLOOD COUNT 3.54 10^6/uL (4.30-6.10); RED CELL DISTRIBUTION WIDTH 14.5 % (11.5-14.5); WHITE BLOOD COUNT 20.9 10^3/uL (4.0-10.0)
[2018-05-19 07:31] LABS: ANION GAP 7 MEQ/L (8-16); BLOOD UREA NITROGEN 31 MG/DL (7-18); CALCIUM LEVEL 9.2 MG/DL (8.8-10.2); CARBON DIOXIDE LEVEL 34 MEQ/L (21-32); CHLORIDE LEVEL 96 MEQ/L (98-107); CREATININE FOR GFR 0.67 MG/DL (0.70-1.30); GLOMERULAR FILTRATION RATE > 60.0 (>35); GLUCOSE, FASTING 156 MG/DL (70-100); POTASSIUM SERUM 4.3 MEQ/L (3.5-5.1); SODIUM LEVEL 137 MEQ/L (136-145)
[2018-05-19] MEDS: SODIUM CHLORIDE 1 GM TAB PEG ×2 (10:16→20:40)
[2018-05-19] MEDS: NYSTATIN 500,000 U/5 ML SUSP UDC SSP ×2 (12:24→17:24)
[2018-05-19] MEDS: RIVAROXABAN 10 MG TAB (XARELTO) PEG (17:25)
[2018-05-19] MEDS: SENNA 8.6 MG TAB (SENOKOT) PEG (20:40)
[2018-05-19] MEDS: PERCOCET 5MG/325MG TAB PEG (20:41)
[2018-05-20] MEDS: NYSTATIN 500,000 U/5 ML SUSP UDC SSP ×4 (00:31→16:50)
[2018-05-20] MEDS: SLF 3 ML SYR IV ×3 (05:22→22:00)
[2018-05-20] MEDS: CEFTAROLINE FOSAMIL 400 MG in D5W MINI-BAG PLUS 50 ML IV ×2 (05:22→16:38)
[2018-05-20 07:10] LABS: BASO # 0.1 10^3/uL (0.0-0.2); BASO % 0.4 % (0.0-1.0); EOS # 0.1 10^3/uL (0.0-0.50); EOS % 0.8 % (0.0-3.0); HEMATOCRIT 29.4 % (42.0-52.0); HEMOGLOBIN 9.2 g/dl (13.5-17.5); IMMATURE GRANULOCYTE % 0.4 % (0-3.0); LYMPH # 1.1 10^3/uL (1.5-4.5); LYMPH % 6.3 % (24.0-44.0); MEAN CORPUSCULAR HEMOGLOBIN 27.1 pg (27.0-33.0); MEAN CORPUSCULAR HGB CONC 31.3 g/dl (32.0-36.5); MEAN CORPUSCULAR VOLUME 86.7 fl (80.0-96.0); MONO # 1.2 10^3/uL (0.0-0.8); MONO % 6.7 % (0.0-5.0); NEUTROPHILS # 15.4 10^3/uL (1.8-7.7); NEUTROPHILS % 85.4 % (36.0-66.0); PLATELET COUNT, AUTOMATED 322 10^3/uL (150-450); RED BLOOD COUNT 3.39 10^6/uL (4.30-6.10); RED CELL DISTRIBUTION WIDTH 14.5 % (11.5-14.5)
[2018-05-20 07:25] LABS: MAGNESIUM LEVEL 2.1 MG/DL (1.8-2.4)
[2018-05-20 07:30] LABS: ANION GAP 9 MEQ/L (8-16); BLOOD UREA NITROGEN 30 MG/DL (7-18); CALCIUM LEVEL 8.9 MG/DL (8.8-10.2); CARBON DIOXIDE LEVEL 32 MEQ/L (21-32); CHLORIDE LEVEL 100 MEQ/L (98-107); CREATININE FOR GFR 0.62 MG/DL (0.70-1.30); GLOMERULAR FILTRATION RATE > 60.0 (>35); GLUCOSE, FASTING 175 MG/DL (70-100); POTASSIUM SERUM 4.4 MEQ/L (3.5-5.1); SODIUM LEVEL 141 MEQ/L (136-145)
[2018-05-20] MEDS: DICLOFENAC EPOLAMINE 1.3 % PATCH TOP ×2 (11:12→21:08)
[2018-05-20] MEDS: SODIUM CHLORIDE 1 GM TAB PEG (11:12)
[2018-05-20] MEDS: SALIVA SUBSTITUTE(MOUTHKOTE) BTL MT ×3 (11:13→21:08)
[2018-05-20] MEDS: PERCOCET 5MG/325MG TAB PEG ×3 (11:15→21:07)
[2018-05-20] MEDS: RIVAROXABAN 10 MG TAB (XARELTO) PEG (16:50)
[2018-05-20 17:37] LABS: VITAMIN B12 LEVEL 384 PG/ML (247-911)
[2018-05-20 17:38] LABS: FOLATE 15.9 NG/ML (>5.4)
[2018-05-20] MEDS: SENNA 8.6 MG TAB (SENOKOT) PEG (21:05)
[2018-05-21] MEDS: NYSTATIN 500,000 U/5 ML SUSP UDC SSP ×4 (06:00→17:11)
[2018-05-21] MEDS: SLF 3 ML SYR IV ×3 (06:00→20:55)
[2018-05-21 07:31] LABS: BASO # 0.1 10^3/uL (0.0-0.2); BASO % 0.5 % (0.0-1.0); EOS # 0.2 10^3/uL (0.0-0.50); EOS % 0.9 % (0.0-3.0); HEMATOCRIT 28.8 % (42.0-52.0); HEMOGLOBIN 8.7 g/dl (13.5-17.5); IMMATURE GRANULOCYTE % 0.6 % (0-3.0); LYMPH # 1.3 10^3/uL (1.5-4.5); MEAN CORPUSCULAR HEMOGLOBIN 26.4 pg (27.0-33.0); MEAN CORPUSCULAR HGB CONC 30.2 g/dl (32.0-36.5); MEAN CORPUSCULAR VOLUME 87.5 fl (80.0-96.0); MONO % 6.5 % (0.0-5.0); NEUTROPHILS # 13.4 10^3/uL (1.8-7.7); NEUTROPHILS % 83.5 % (36.0-66.0); PLATELET COUNT, AUTOMATED 308 10^3/uL (150-450); RED BLOOD COUNT 3.29 10^6/uL (4.30-6.10); RED CELL DISTRIBUTION WIDTH 14.6 % (11.5-14.5); WHITE BLOOD COUNT 16.1 10^3/uL (4.0-10.0)
[2018-05-21 07:54] LABS: ANION GAP 5 MEQ/L (8-16); BLOOD UREA NITROGEN 28 MG/DL (7-18); CALCIUM LEVEL 9.4 MG/DL (8.8-10.2); CARBON DIOXIDE LEVEL 33 MEQ/L (21-32); CHLORIDE LEVEL 98 MEQ/L (98-107); CREATININE FOR GFR 0.62 MG/DL (0.70-1.30); GLOMERULAR FILTRATION RATE > 60.0 (>35); GLUCOSE, FASTING 157 MG/DL (70-100); POTASSIUM SERUM 4.6 MEQ/L (3.5-5.1); SODIUM LEVEL 136 MEQ/L (136-145)
[2018-05-21] MEDS: SALIVA SUBSTITUTE(MOUTHKOTE) BTL MT ×3 (09:34→20:57)
[2018-05-21] MEDS: PERCOCET 5MG/325MG TAB PEG ×2 (09:35→20:54)
[2018-05-21] MEDS: SODIUM CHLORIDE 1 GM TAB PEG (09:35)
[2018-05-21] MEDS: DICLOFENAC EPOLAMINE 1.3 % PATCH TOP ×2 (09:35→20:54)
[2018-05-21] MEDS ORDERED: SALIVA SUBSTITUTE(MOUTHKOTE) BTL MT (10:06)
[2018-05-21] MEDS: RIVAROXABAN 10 MG TAB (XARELTO) PEG (17:11)
[2018-05-21] MEDS: SENNA 8.6 MG TAB (SENOKOT) PEG (20:53)
[2018-05-22] MEDS: SLF 3 ML SYR IV ×3 (06:00→20:13)
[2018-05-22] MEDS: NYSTATIN 500,000 U/5 ML SUSP UDC SSP ×5 (06:26→23:56)
[2018-05-22] MEDS: PERCOCET 5MG/325MG TAB PEG (06:38)
[2018-05-22 07:55] LABS: BASO # 0.1 10^3/uL (0.0-0.2); BASO % 0.3 % (0.0-1.0); EOS # 0.1 10^3/uL (0.0-0.50); EOS % 0.8 % (0.0-3.0); HEMATOCRIT 28.2 % (42.0-52.0); HEMOGLOBIN 8.6 g/dl (13.5-17.5); IMMATURE GRANULOCYTE % 0.6 % (0-3.0); LYMPH # 1.4 10^3/uL (1.5-4.5); LYMPH % 7.6 % (24.0-44.0); MEAN CORPUSCULAR HEMOGLOBIN 26.8 pg (27.0-33.0); MEAN CORPUSCULAR HGB CONC 30.5 g/dl (32.0-36.5); MEAN CORPUSCULAR VOLUME 87.9 fl (80.0-96.0); MONO # 1.2 10^3/uL (0.0-0.8); MONO % 6.6 % (0.0-5.0); NEUTROPHILS # 15.2 10^3/uL (1.8-7.7); NEUTROPHILS % 84.1 % (36.0-66.0); PLATELET COUNT, AUTOMATED 303 10^3/uL (150-450); RED BLOOD COUNT 3.21 10^6/uL (4.30-6.10); RED CELL DISTRIBUTION WIDTH 14.5 % (11.5-14.5); WHITE BLOOD COUNT 18.1 10^3/uL (4.0-10.0)
[2018-05-22 08:14] LABS: ANION GAP 8 MEQ/L (8-16); BLOOD UREA NITROGEN 27 MG/DL (7-18); CALCIUM LEVEL 8.9 MG/DL (8.8-10.2); CARBON DIOXIDE LEVEL 31 MEQ/L (21-32); CHLORIDE LEVEL 96 MEQ/L (98-107); CREATININE FOR GFR 0.62 MG/DL (0.70-1.30); GLOMERULAR FILTRATION RATE > 60.0 (>35); GLUCOSE, FASTING 171 MG/DL (70-100); POTASSIUM SERUM 4.4 MEQ/L (3.5-5.1); SODIUM LEVEL 135 MEQ/L (136-145)
[2018-05-22] MEDS: SODIUM CHLORIDE 1 GM TAB PEG (09:07)
[2018-05-22] MEDS: DICLOFENAC EPOLAMINE 1.3 % PATCH TOP ×2 (09:07→20:13)
[2018-05-22] MEDS: SALIVA SUBSTITUTE(MOUTHKOTE) BTL MT ×3 (09:07→20:12)
[2018-05-22] MEDS: RIVAROXABAN 10 MG TAB (XARELTO) PEG (17:07)
[2018-05-22] MEDS: ONDANSETRON 4MG/2ML VIAL (J2405) IM (17:52)
[2018-05-22] MEDS: SENNA 8.6 MG TAB (SENOKOT) PEG (20:11)
[2018-05-22] MEDS: ACETAMINOPHEN TAB 650MG DOSE (2X325MG) PEG (20:12)
[2018-05-23] MEDS: NYSTATIN 500,000 U/5 ML SUSP UDC SSP ×3 (05:23→17:49)
[2018-05-23 07:13] LABS: BASO # 0.1 10^3/uL (0.0-0.2); BASO % 0.3 % (0.0-1.0); EOS # 0.1 10^3/uL (0.0-0.50); EOS % 0.3 % (0.0-3.0); HEMATOCRIT 27.5 % (42.0-52.0); HEMOGLOBIN 8.6 g/dl (13.5-17.5); IMMATURE GRANULOCYTE % 0.6 % (0-3.0); LYMPH # 1.2 10^3/uL (1.5-4.5); MEAN CORPUSCULAR HGB CONC 31.3 g/dl (32.0-36.5); MEAN CORPUSCULAR VOLUME 86.2 fl (80.0-96.0); MONO # 1.2 10^3/uL (0.0-0.8); NEUTROPHILS # 17.1 10^3/uL (1.8-7.7); NEUTROPHILS % 86.8 % (36.0-66.0); PLATELET COUNT, AUTOMATED 295 10^3/uL (150-450); RED BLOOD COUNT 3.19 10^6/uL (4.30-6.10); RED CELL DISTRIBUTION WIDTH 14.6 % (11.5-14.5); WHITE BLOOD COUNT 19.7 10^3/uL (4.0-10.0)
[2018-05-23 07:28] LABS: ANION GAP 8 MEQ/L (8-16); BLOOD UREA NITROGEN 25 MG/DL (7-18); CALCIUM LEVEL 9.1 MG/DL (8.8-10.2); CARBON DIOXIDE LEVEL 33 MEQ/L (21-32); CHLORIDE LEVEL 96 MEQ/L (98-107); CREATININE FOR GFR 0.62 MG/DL (0.70-1.30); GLOMERULAR FILTRATION RATE > 60.0 (>35); GLUCOSE, FASTING 174 MG/DL (70-100); POTASSIUM SERUM 4.3 MEQ/L (3.5-5.1); SODIUM LEVEL 137 MEQ/L (136-145)
[2018-05-23] MEDS: SALIVA SUBSTITUTE(MOUTHKOTE) BTL MT ×3 (09:00→20:08)
[2018-05-23] MEDS: DICLOFENAC EPOLAMINE 1.3 % PATCH TOP ×2 (10:39→20:08)
[2018-05-23] MEDS: SODIUM CHLORIDE 1 GM TAB PEG (10:39)
[2018-05-23] MEDS: IPRATROPIUM 0.5MG/ALBUTEROL 2.5MG INH SOL UD 3ML (DUONEB)(J7620) NEB (14:45)
[2018-05-23 14:52] LABS: ABG BASE EXCESS 6.9 (-2.0-2.0); ABG HCO3 31.8 MEQ/L (22.0-26.0); ABG O2 SATURATION 99.6 % (95.0-99.0); ABG PARTIAL PRESSURE CO2 47.3 mmHg (35.0-45.0); ABG PARTIAL PRESSURE O2 167.4 mmHg (75.0-100.0); ABG STANDARD HCO3 30.8 MEQ/L (22.0-26.0); ABG TOTAL CO2 33.3 MEQ/L (23.0-31.0); ABG pH (ARTERIAL) 7.446 UNITS (7.350-7.450)
[2018-05-23] MEDS: RIVAROXABAN 10 MG TAB (XARELTO) PEG (17:49)
[2018-05-23] MEDS: SENNA 8.6 MG TAB (SENOKOT) PEG (20:06)
[2018-05-24] MEDS: NYSTATIN 500,000 U/5 ML SUSP UDC SSP ×5 (00:21→23:31)
[2018-05-24] MEDS: PERCOCET 5MG/325MG TAB PEG ×2 (05:52→17:10)
[2018-05-24 07:00] LABS: BASO # 0.1 10^3/uL (0.0-0.2); BASO % 0.3 % (0.0-1.0); EOS % 0.2 % (0.0-3.0); HEMATOCRIT 26.6 % (42.0-52.0); HEMOGLOBIN 8.3 g/dl (13.5-17.5); IMMATURE GRANULOCYTE % 0.4 % (0-3.0); LYMPH # 1.4 10^3/uL (1.5-4.5); LYMPH % 7.9 % (24.0-44.0); MEAN CORPUSCULAR HGB CONC 31.2 g/dl (32.0-36.5); MEAN CORPUSCULAR VOLUME 86.6 fl (80.0-96.0); MONO # 1.2 10^3/uL (0.0-0.8); MONO % 6.7 % (0.0-5.0); NEUTROPHILS # 15.2 10^3/uL (1.8-7.7); NEUTROPHILS % 84.5 % (36.0-66.0); PLATELET COUNT, AUTOMATED 276 10^3/uL (150-450); RED BLOOD COUNT 3.07 10^6/uL (4.30-6.10); RED CELL DISTRIBUTION WIDTH 14.7 % (11.5-14.5)
[2018-05-24 07:17] LABS: ANION GAP 5 MEQ/L (8-16); BLOOD UREA NITROGEN 26 MG/DL (7-18); CALCIUM LEVEL 9.1 MG/DL (8.8-10.2); CARBON DIOXIDE LEVEL 32 MEQ/L (21-32); CHLORIDE LEVEL 96 MEQ/L (98-107); CREATININE FOR GFR 0.66 MG/DL (0.70-1.30); GLOMERULAR FILTRATION RATE > 60.0 (>35); GLUCOSE, FASTING 182 MG/DL (70-100); POTASSIUM SERUM 4.5 MEQ/L (3.5-5.1); SODIUM LEVEL 133 MEQ/L (136-145)
[2018-05-24] MEDS: SALIVA SUBSTITUTE(MOUTHKOTE) BTL MT ×3 (08:18→20:47)
[2018-05-24] MEDS: DICLOFENAC EPOLAMINE 1.3 % PATCH TOP ×2 (08:18→20:47)
[2018-05-24] MEDS: SODIUM CHLORIDE 1 GM TAB PEG (08:18)
[2018-05-24] MEDS: RIVAROXABAN 10 MG TAB (XARELTO) PEG (17:10)
[2018-05-24] MEDS: ACETAMINOPHEN TAB 650MG DOSE (2X325MG) PEG (20:47)
[2018-05-24] MEDS: SENNA 8.6 MG TAB (SENOKOT) PEG (20:47)
[2018-05-25] MEDS: NYSTATIN 500,000 U/5 ML SUSP UDC SSP ×3 (06:14→17:25)
[2018-05-25] MEDS: ACETAMINOPHEN TAB 650MG DOSE (2X325MG) PEG (06:17)
[2018-05-25 06:58] LABS: BASO # 0.1 10^3/uL (0.0-0.2); BASO % 0.3 % (0.0-1.0); EOS # 0.1 10^3/uL (0.0-0.50); EOS % 0.3 % (0.0-3.0); HEMATOCRIT 28.7 % (42.0-52.0); IMMATURE GRANULOCYTE % 0.6 % (0-3.0); LYMPH # 1.6 10^3/uL (1.5-4.5); MEAN CORPUSCULAR HEMOGLOBIN 26.9 pg (27.0-33.0); MEAN CORPUSCULAR HGB CONC 31.4 g/dl (32.0-36.5); MEAN CORPUSCULAR VOLUME 85.9 fl (80.0-96.0); MONO % 6.1 % (0.0-5.0); NEUTROPHILS # 13.5 10^3/uL (1.8-7.7); NEUTROPHILS % 82.7 % (36.0-66.0); PLATELET COUNT, AUTOMATED 301 10^3/uL (150-450); RED BLOOD COUNT 3.34 10^6/uL (4.30-6.10); RED CELL DISTRIBUTION WIDTH 14.6 % (11.5-14.5); WHITE BLOOD COUNT 16.3 10^3/uL (4.0-10.0)
[2018-05-25 07:22] LABS: ANION GAP 8 MEQ/L (8-16); BLOOD UREA NITROGEN 24 MG/DL (7-18); CALCIUM LEVEL 9.2 MG/DL (8.8-10.2); CARBON DIOXIDE LEVEL 29 MEQ/L (21-32); CHLORIDE LEVEL 98 MEQ/L (98-107); GLOMERULAR FILTRATION RATE > 60.0 (>35); GLUCOSE, FASTING 140 MG/DL (70-100); POTASSIUM SERUM 4.7 MEQ/L (3.5-5.1); SODIUM LEVEL 135 MEQ/L (136-145)
[2018-05-25] MEDS: SODIUM CHLORIDE 1 GM TAB PEG (08:49)
[2018-05-25] MEDS: DICLOFENAC EPOLAMINE 1.3 % PATCH TOP (08:50)
[2018-05-25] MEDS: SALIVA SUBSTITUTE(MOUTHKOTE) BTL MT ×2 (08:50→16:11)
[2018-05-25] MEDS: RIVAROXABAN 10 MG TAB (XARELTO) PEG (17:25)
== END 2018-05-25 18:50 | disposition home health service (06) | DRG 560 ==
LOC: M PM&R 11:49
DX: S72.402D Unspecified fracture of lower end of left femur, subsequent encounter for closed fracture with routine healing (principal); E46 Unspecified protein-calorie malnutrition; J98.11 Atelectasis; D62 Acute posthemorrhagic anemia; C34.91 Malignant neoplasm of unspecified part of right bronchus or lung; E87.1 Hypo-osmolality and hyponatremia; D72.829 Elevated white blood cell count, unspecified; J44.9 Chronic obstructive pulmonary disease, unspecified; I51.7 Cardiomegaly; M62.50 Muscle wasting and atrophy, not elsewhere classified, unspecified site; I71.4 Abdominal aortic aneurysm, without rupture; Z66 Do not resuscitate; B35.1 Tinea unguium; R13.10 Dysphagia, unspecified; E87.6 Hypokalemia; R11.10 Vomiting, unspecified; F03.90 Unspecified dementia, unspecified severity, without behavioral disturbance, psychotic disturbance, mood disturbance, and anxiety; I10 Essential (primary) hypertension; R07.89 Other chest pain; K14.0 Glossitis; Z92.3 Personal history of irradiation; Z99.81 Dependence on supplemental oxygen; W19.XXXD Unspecified fall, subsequent encounter; Y92.009 Unspecified place in unspecified non-institutional (private) residence as the place of occurrence of the external cause; Z93.1 Gastrostomy status; Z87.891 Personal history of nicotine dependence; Z79.899 Other long term (current) drug therapy